=== PATIENT | male | born 1935 | race Caucasian/White ===

== ENCOUNTER 2017-11-06 19:16 | Emergency (ER) | payer MEDICAID, MEDICARE ==
[2017-11-06 19:16] VITALS: BMI 26.6
--- NOTE | 2017-11-06 19:54 | C.PDOC ---
History Of Present Illness 82 year old male with PMhc of chronic constipation, hx of prostate cancer, and chronic back issues accompanied by his daughter presents to the ED for evaluation of worsening constipation. FAmily reports his last bowel movement was last night and noted the stool was hard. As per daughter she disimpacted hardened stool from the rectum recently. Patient was recently admitted to [facility] [place] for constipation last month-already taking mag citrate without much improvement. Patient denies nausea, vomit, abdominal pain, CP, SOB. Time Seen by Provider: 11/06/17 19:29 Chief Complaint (Nursing): Abdominal Pain History Per: Patient, Family History/Exam Limitations: no limitations Onset/Duration Of Symptoms: Days Current Symptoms Are (Timing): Still Present Pain Scale Rating Of: 3 Location Of Pain/Discomfort: Diffuse Radiation Of Pain To:: None Quality Of Discomfort: "Pain" Associated Symptoms: Constipation Exacerbating Factors: None Alleviating Factors: None Last Bowel Movement: Yesterday Recent travel outside of the [place]: No Additional History Per: Patient, Family Past Medical History Reviewed: Historical Data, Nursing Documentation, Vital Signs Vital Signs: Last Vital Signs Temp 98 F 11/07/17 00:08 Pulse 87 11/07/17 00:08 Resp 16 11/07/17 00:08 BP 135/75 11/07/17 00:08 Pulse Ox 99 11/07/17 06:36 - Medical History PMH: Alzheimer's Disease Other PMH: prostate cancer/ chronic back pain Surgical History: Appendectomy - [facility] Procedures CATARAC PHACOEMULS/ASPIR (04/07/13) INSERT LENS AT CATAR EXT (04/07/13) Family History: States: Unknown Family Hx - Social History Hx Alcohol Use: No Hx Substance Use: No Review Of Systems Constitutional: Negative for: Fever, Chills Eyes: Negative for: Pain ENT: Negative for: Ear Pain Cardiovascular: Negative for: Chest Pain, Palpitations Respiratory: Negative for: Cough, Shortness of Breath Gastrointestinal: Positive for: Constipation, Rectal Pain. Negative for: Nausea , Vomiting, Abdominal Pain, Melena, Hematochezia, Hematemesis Genitourinary: Negative for: Dysuria, Hematuria Skin: Negative for: Rash Neurological: Negative for: Weakness, Numbness Physical Exam - Physical Exam Appears: Non-toxic, No Acute Distress Skin: Normal Color, Warm, Dry Head: Atraumatic, Normacephalic Nose: No Discharge, No Deformity Oral Mucosa: Moist Throat: Normal, No Erythema, No Exudate Neck: Normal ROM, Supple Chest: Symmetrical Cardiovascular: Rhythm Regular, No Murmur Respiratory: Normal Breath Sounds, No Rales, No Rhonchi, No Wheezing Gastrointestinal/Abdominal: Soft, No Tenderness, No Guarding, No Rebound, Other (RLQ 5 cm long vertical scar) Extremity: Normal ROM, No Pedal Edema, No Calf Tenderness, No Deformity, No Swelling Neurological/Psych: Oriented x3, Normal Speech, Normal Cognition Gait: Steady ED Course And Treatment O2 Sat by Pulse Oximetry: 99 (On RA) Pulse Ox Interpretation: Normal - Radiology CXR: Interpreted by Me, Viewed By Me CXR Interpretation: No: No Acute Disease, Infiltrates, Cardiomegaly, Pnemothorax - Other Rad Obstructive series X-Ray: Interpreted by Me, Viewed By Me Interpretation: Lots of stool noted Medical Decision Making Medical Decision Making: Plan: * Blood work * Valium 5 mg PO * UA Disimpacted some stool from the patients rectum, used lidocaine in the rectum. Disposition - Disposition Referrals: [facility] [place] [facility] [Outside] [facility] [Outside] [facility] [Outside] Disposition: HOME/ ROUTINE Additional Instructions: return if symptoms do not improve or worsen Prescriptions: Magnesium Citrate 100 mg PO DAILY 5 Days #5 tablet Instructions: Constipation (ED) Forms: [facility] (Telugu) - Scribe Statement The provider has reviewed the documentation as recorded by the Scribe Jae Villasenor All medical record entries made by the Scribe were at my direction and personally dictated by me. I have reviewed the chart and agree that the record accurately reflects my personal performance of the history, physical exam, medical decision making, and the department course for this patient. I have also personally directed, reviewed, and agree with the discharge instructions and disposition.
[2017-11-07 00:09] VITALS: BP 135/75; PULSE 87; RESP 16; TEMP 98
[2017-11-07 06:37] VITALS: O2SAT 99
--- NOTE | 2017-11-07 08:38 | RAD ---
PROCEDURE: CHEST RADIOGRAPH, 1 VIEW HISTORY: SOB COMPARISON: None available. FINDINGS: LUNGS: Clear. PLEURA: No pneumothorax or pleural fluid seen. CARDIOVASCULAR: Minimal left ventricular enlargement configuration. Minimal central pulmonary vascular congestion OSSEOUS STRUCTURES: Bilateral shoulder arthrosis VISUALIZED UPPER ABDOMEN: Extensive stool - hepatic flexure -with trace probably intraluminal colon gas OTHER FINDINGS: None. IMPRESSION: No consolidation, pleural effusion or pneumothorax Minimal left ventricular enlargement configuration. Minimal central pulmonary vascular congestion
--- NOTE | 2017-11-07 08:46 | RAD ---
HISTORY: abd pain COMPARISON: No prior. FINDINGS: BOWEL: Extensive left and right stool retention. No obstruction. No free air. BONES: Arthrosis -both hips -study oblique OTHER FINDINGS: None. IMPRESSION: Marked stool retention consistent with constipation. No mechanical obstruction or free air
--- NOTE | 2017-11-07 13:58 | CARD ---
APPROVED REPORT EKG Measurement Heart [id number] <Conclusion> Normal sinus rhythm Normal ECG
== END 2017-11-07 00:09 | disposition home or self-care (01) ==
LOC: C.ER 19:16
DX: K59.00 Constipation, unspecified (principal); G30.9 Alzheimer's disease, unspecified; F02.80 Dementia in other diseases classified elsewhere, unspecified severity, without behavioral disturbance, psychotic disturbance, mood disturbance, and anxiety

== ENCOUNTER 2017-11-12 17:08 | Inpatient (IN) | payer MEDICARE ==
[2017-11-12 17:08] VITALS: BMI 26.6
--- NOTE | 2017-11-12 19:41 | C.PDOC ---
History Of Present Illness 82M hx alzheimer dementia brought in by son for constipation and abdominal pain. he says he was here for same several days ago, had disimpaction at that time but has had no stool since then. no vomiting or fever. Time Seen by Provider: 11/12/17 19:30 Chief Complaint (Nursing): GI Problem Past Medical History Vital Signs: Last Vital Signs Temp 97.9 F 11/18/17 08:38 Pulse 73 11/18/17 08:38 Resp 20 11/18/17 08:38 BP 125/72 11/18/17 08:38 Pulse Ox 99 11/18/17 08:38 - Medical History PMH: Alzheimer's Disease Surgical History: Appendectomy - [facility] Procedures CATARAC PHACOEMULS/ASPIR (04/07/13) INSERT LENS AT CATAR EXT (04/07/13) Family History: States: Unknown Family Hx - Social History Hx Alcohol Use: No Hx Substance Use: No - Immunization History Hx Tetanus Toxoid Vaccination: No Hx Influenza Vaccination: No Hx Pneumococcal Vaccination: No Review Of Systems Review Of Systems: ROS cannot be obtained secondary to pt's inabilty to answer questions. Physical Exam - Physical Exam Appears: Well, Non-toxic, No Acute Distress Skin: Warm, Dry Head: Atraumatic Eye(s): bilateral: PERRL Oral Mucosa: Moist Cardiovascular: Rhythm Regular Respiratory: No Decreased Breath Sounds, No Accessory Muscle Use Gastrointestinal/Abdominal: Soft, No Distention, No Guarding Extremity: No Swelling Neurological/Psych: Other (no focal deficits) ED Course And Treatment - Laboratory Results Result Diagrams: 11/12/17 20:09 11/12/17 20:09 O2 Sat by Pulse Oximetry: 98 Disposition - Disposition Disposition: HOSPITALIZED Disposition Time: 21:54 Condition: STABLE - Clinical Impression Clinical Impression: Obstipation
[2017-11-12 20:14] LABS: BASO # 0.1 K/uL (0.0-0.2); BASO % 0.5 % (0.0-2.0); EOS % 0.3 % (0.0-4.0); HEMOGLOBIN 11.1 g/dL (12.0-18.0); LYMPH # 1.5 K/uL (1.0-4.3); LYMPH % 14.2 % (20.0-40.0); MEAN CELL VOLUME 85.3 fL (80.0-94.0); MEAN CORPUSCULAR HEMOGLOBIN 28.6 pg (27.0-31.0); MEAN CORPUSCULAR HGB CONC 33.6 g/dL (33.0-37.0); MEAN PLATELET VOLUME 7.4 fL (7.2-11.7); MONO # 1.3 K/uL (0.0-0.8); MONO % 12.1 % (0.0-10.0); NEUT # 7.9 K/uL (1.8-7.0); NEUT % 72.9 % (50.0-75.0); NRBC % 0.1 % (0.0-2.0); RBC 3.87 Mil/uL (4.40-5.90); WHITE BLOOD COUNT 10.8 K/uL (4.8-10.8)
[2017-11-12 20:35] LABS: ALBUMIN 3.6 g/dL (3.5-5.0); ALT/SGPT 27 U/L (21-72); AST/SGOT 27 U/L (17-59); BLOOD UREA NITROGEN 16 mg/dL (9-20); CALCIUM 9.3 mg/dl (8.6-10.4); GFR AFRICAN-AMERICAN > 60; GFR NON-AFRICAN AMERICAN > 60; LIPASE 44 U/L (23-300)
[2017-11-12 20:37] LABS: ALB/GLOB RATIO 0.6 (1.0-2.1)
--- NOTE | 2017-11-12 21:44 | CT ---
EXAM: CT Abdomen and Pelvis Without Intravenous Contrast EXAM DATE/TIME: 11/12/2017 7:38 PM CLINICAL HISTORY: 82 years old, male; Signs and symptoms; Constipation; Additional info: Pain constipation TECHNIQUE: Axial computed tomography images of the abdomen and pelvis without intravenous contrast. All CT scans at this facility use one or more dose reduction techniques, viz.: automated exposure control; ma/kV adjustment per patient size (including targeted exams where dose is matched to indication; i.e. head); or iterative reconstruction technique. Coronal and sagittal reformatted images were created and reviewed. COMPARISON: There are no prior studies for comparison. FINDINGS: Artifacts: Streak artifact degrades image quality. Motion artifact degrades image quality. Lower thorax: Heart size is normal. Lung bases are hyperinflated. There is minimal scarring at the lung bases ABDOMEN: Liver: unremarkable Gallbladder and bile ducts: unremarkable Pancreas: Pancreas is mildly atrophic. Spleen: unremarkable Adrenals: unremarkable Kidneys and ureters: unremarkable Stomach and bowel: Stomach is incompletely distended. Rotation is normal. Small bowel is mildly distended with fluid and air. Terminal ileum is unremarkable. Appendix is not visualized.There is no pericecal inflammation. There is a large amount of stool throughout the colon. There is a large fecal bolus in the rectum. There is mild rectal wall thickening. Appendix: See stomach and bowel PELVIS: Bladder: Bladder is almost completely empty. Reproductive: Seminal vesicles and prostate are unremarkable. ABDOMEN and PELVIS: Intraperitoneal space: There is no free air or free fluid. Bones/joints: Bony structures are osteopenic.There are degenerative changes in the osseus structures. Soft tissues: unremarkable Vasculature: There are vascular calcifications. Lymph nodes: There is no pathologic adenopathy. IMPRESSION: Constipation with fecal impaction, mild rectal wall thickening suggest stercoral colitios
[2017-11-12] MEDS ORDERED: POLYETHYLENE GLYCOL 3350 17 GM/Dose PACKET PO STA (22:09)
[2017-11-13] MEDS ORDERED: Dextrose 5%/0.45% NS 1,000 ML IV ONE (00:43)
[2017-11-13] MEDS ORDERED: Enoxaparin 40 mg Syringe ONE (00:44)
[2017-11-13] MEDS: Dextrose 5%/0.45% NS 1,000 ML IV SCH ×2 (01:30→17:00)
[2017-11-13] MEDS ORDERED: Influenza Vaccine 60 mcg/0.5 mL SYR (4YR UP) IM ONE (10:00)
[2017-11-13] MEDS ORDERED: NAMENDA PO SCH (10:00)
[2017-11-13] MEDS ORDERED: MAGNESIUM CITRATE 100 MG PO SCH (10:00)
[2017-11-13] MEDS ORDERED: Pneumococcal 23-Valent Vaccine IM ONE (10:00)
[2017-11-13] MEDS: Enoxaparin 40 mg Syringe SC SCH (10:35)
[2017-11-13] MEDS ORDERED: Lactated Ringer's 1,000 ML IV ONE (14:25)
[2017-11-13] MEDS ORDERED: Propofol 10 mg/ml Inj (20 ML) ONE (14:37)
[2017-11-13] MEDS ORDERED: Midazolam 2 MG/2 ML VIAL ONE (14:37)
[2017-11-13] MEDS ORDERED: Peg-Electrolyte Oral Soln 4L (Golytely) PO ONE (15:11)
[2017-11-13] MEDS ORDERED: HYDROmorphone 0.5 mg/0.5 ml ISec IVP PRN (15:22)
--- NOTE | 2017-11-13 17:00 | CP.PCM.HP ---
Past Patient History - Infectious Disease Hx of Infectious Diseases: None - Past Social History Smoking Status: Never Smoked - NEUROLOGICAL Hx Alzheimer's Disease: Yes - GASTROINTESTINAL Hx Constipation: Yes (with impaction) - GENITOURINARY/GYNECOLOGICAL Hx Prostate Problems: Yes - PSYCHIATRIC Hx Substance Use: No - SURGICAL HISTORY Hx Appendectomy: Yes - ANESTHESIA Hx Anesthesia: Yes Hx Anesthesia Reactions: No Hx Malignant Hyperthermia: No Meds Allergies/Adverse Reactions: Allergies Allergy/AdvReac Type Severity Reaction Status Date / Time No Known Allergies Allergy Verified 04/07/13 08:05 Results - Vital Signs Recent Vital Signs: Last Vital Signs Temp 97.6 F 11/13/17 15:13 Pulse 66 11/13/17 16:00 Resp 13 11/13/17 16:00 BP 120/58 L 11/13/17 16:00 Pulse Ox 100 11/13/17 16:00 - Labs Result Diagrams: 11/12/17 20:09 11/12/17 20:09 Labs: Laboratory Results - last 24 hr 11/12/17 11/12/17 20:09 20:09 WBC 10.8 RBC 3.87 L Hgb 11.1 L Hct 33.0 L MCV 85.3 MCH 28.6 MCHC 33.6 RDW 18.0 H Plt Count 503 H MPV 7.4 Neut % (Auto) 72.9 Lymph % (Auto) 14.2 L [place] % (Auto) 12.1 H Eos % (Auto) 0.3 Baso % (Auto) 0.5 Neut # 7.9 H Lymph # 1.5 [place] # 1.3 H Eos # 0.0 Baso # 0.1 Sodium 132 Potassium 4.3 Chloride 96 L Carbon Dioxide 28 Anion Gap 12 BUN 16 Creatinine 0.7 L Est GFR ( Amer) > 60 Est GFR (Non-Af Amer) > 60 Random Glucose 99 Calcium 9.3 Total Bilirubin 0.5 AST 27 ALT 27 Alkaline Phosphatase 159 H Total Protein 9.3 H Albumin 3.6 Globulin 5.7 H Albumin/Globulin Ratio 0.6 L Lipase 44
--- NOTE | 2017-11-13 17:15 | RAD ---
HISTORY: FOR NGT PLACEMENT COMPARISON: Chest x-ray performed 11/06/17 TECHNIQUE: Chest, one view. FINDINGS: Nasogastric tube extends expected location of the stomach. LUNGS: No focal consolidation. Please note that chest x-ray has limited sensitivity for the detection of pulmonary masses. PLEURA: No significant pleural effusion identified. No definite pneumothorax . CARDIOVASCULAR: Heart size appears within normal limits. Ectatic aorta. OSSEOUS STRUCTURES: No acute osseous abnormality identified. VISUALIZED UPPER ABDOMEN: Partially imaged severe constipation. OTHER FINDINGS: None. IMPRESSION: Nasogastric tube extends expected location of the stomach. Partially imaged severe constipation.
[2017-11-13 17:46] VITALS: RESP 20
--- NOTE | 2017-11-13 20:53 | OP ---
PROCEDURE DATE: PREOPERATIVE DIAGNOSIS: Fecal impaction. POSTOPERATIVE DIAGNOSIS: Fecal impaction. PROCEDURE PERFORMED: 1. Fecal disimpaction. 2. Repair of rectal blood vessel. SURGEON: Ignacoi Tsang MD. TYPE OF ANESTHESIA: General. ESTIMATED BLOOD LOSS: 40 mL. POSTOPERATIVE CONDITION: Stable. INDICATIONS FOR SURGERY: This is an 82-year-old male, who presented with obstipation, found to have a fecal impaction with a large bolus of stool in his rectum on CT scan. Taken to the OR for a fecal disimpaction under anesthesia. CLOSE FINDINGS: There was a large bolus of stool in the rectum. Disimpaction manually was performed. There was a fair amount of bleeding from him where the blood vessel from the stretching of the anus and this was repaired prior to conclusion of procedure. DESCRIPTION OF PROCEDURE: The patient was taken to the operating room, general anesthesia was administered. The rectal area was prepped and draped. Fecal disimpaction was carried out manually after the patient was placed in lithotomy position. A bleeding rectal blood vessel was repaired with Vicryl. The patient tolerated the procedure well. Returned to recovery room in stable condition. Ignacio Tsang MD
[2017-11-14] MEDS: Lactated Ringer's 1,000 ML IV SCH ×2 (04:50→13:02)
[2017-11-14] MEDS ORDERED: Influenza Vaccine 60 mcg/0.5 mL SYR (4YR UP) IM ONE (10:00)
[2017-11-14] MEDS ORDERED: Pneumococcal 23-Valent Vaccine IM ONE (10:00)
[2017-11-14] MEDS ORDERED: Magnesium Citrate Oral SOL (300 ml) PO ONE (12:30)
[2017-11-14] MEDS: Enoxaparin 40 mg Syringe SC SCH (12:59)
--- NOTE | 2017-11-14 20:33 | CP.PCM.PN ---
Subjective - Date & Time of Evaluation Date of Evaluation: 11/14/17 Time of Evaluation: 20:33 Objective - Vital Signs/Intake and Output Vital Signs (last 24 hours): Temp Pulse Resp BP Pulse Ox 98.3 F 76 20 118/68 100 11/14/17 16:00 11/14/17 16:00 11/14/17 16:00 11/14/17 16:00 11/14/17 16:00 Intake and Output: 11/14/17 11/15/17 18:59 06:59 Intake Total 400 Balance 400 - Medications Medications: Current Medications Enoxaparin Sodium (Lovenox) 40 mg SC DAILY [facility] Last Admin: 11/14/17 12:59 Dose: 40 mg Dextrose/Sodium Chloride (Dextrose 5%/0.45% Ns 1000 Ml) 1,000 mls @ 75 mls/hr IV .[id number] [facility] Last Admin: 11/13/17 17:00 Dose: 75 mls/hr Lactated Ringer's (Lactated Ringer's) 1,000 mls @ 150 mls/hr IV .[id number] [facility] Last Admin: 11/14/17 13:02 Dose: 150 mls/hr Memantine (Namenda) 5 mg PO DAILY [facility] - Labs Labs: 11/12/17 20:09 11/12/17 20:09
[2017-11-15] MEDS: Lactated Ringer's 1,000 ML IV SCH ×5 (00:50→19:30)
[2017-11-15] MEDS: Enoxaparin 40 mg Syringe SC SCH (09:54)
[2017-11-15] MEDS ORDERED: Promethazine 12.5 mg/10 ml Syrup PO PRN (12:55)
[2017-11-15] MEDS: BICALUTAMIDE 50 MG PO SCH (14:49)
--- NOTE | 2017-11-15 15:43 | CP.PCM.PN ---
Subjective - Date & Time of Evaluation Date of Evaluation: 11/15/17 Time of Evaluation: 15:43 Objective - Vital Signs/Intake and Output Vital Signs (last 24 hours): Temp Pulse Resp BP Pulse Ox 98.5 F 71 20 138/65 96 11/15/17 07:56 11/15/17 07:56 11/15/17 07:56 11/15/17 07:56 11/15/17 07:56 Intake and Output: 11/15/17 11/15/17 06:59 18:59 Intake Total 1450 Output Total 301 Balance 1149 - Medications Medications: Current Medications Enoxaparin Sodium (Lovenox) 40 mg SC DAILY [facility] Last Admin: 11/15/17 09:54 Dose: 40 mg Home Med (Patient's Own Medication) 1 tab PO DAILY [facility] Last Admin: 11/15/17 14:49 Dose: 1 tab Dextrose/Sodium Chloride (Dextrose 5%/0.45% Ns 1000 Ml) 1,000 mls @ 75 mls/hr IV .[id number] [facility] Last Admin: 11/13/17 17:00 Dose: 75 mls/hr Lactated Ringer's (Lactated Ringer's) 1,000 mls @ 150 mls/hr IV .[id number] [facility] Last Admin: 11/15/17 14:51 Dose: Not Given Memantine (Namenda) 5 mg PO DAILY [facility] Last Admin: 11/15/17 09:54 Dose: 5 mg Multivitamins (Hexavitamin) 1 tab PO DAILY [facility] Promethazine HCl (Phenergan Syrup) 12.5 mg PO Q6 PRN PRN Reason: Cough - Labs Labs: 11/12/17 20:09 11/12/17 20:09
[2017-11-16] MEDS: Lactated Ringer's 1,000 ML IV SCH ×5 (03:30→20:56)
[2017-11-16] MEDS: Multiple Vitamins Tab PO SCH (10:04)
[2017-11-16] MEDS: Enoxaparin 40 mg Syringe SC SCH (10:04)
[2017-11-16] MEDS: BICALUTAMIDE 50 MG PO SCH (10:05)
--- NOTE | 2017-11-16 17:13 | CP.PCM.PN ---
Subjective - Date & Time of Evaluation Date of Evaluation: 11/16/17 Time of Evaluation: 17:13 Objective - Vital Signs/Intake and Output Vital Signs (last 24 hours): Temp Pulse Resp BP Pulse Ox 97.8 F 73 20 156/84 H 98 11/16/17 16:00 11/16/17 16:00 11/16/17 16:00 11/16/17 16:00 11/16/17 16:00 Intake and Output: 11/16/17 11/16/17 06:59 18:59 Intake Total 2400 1260 Output Total 0 Balance 2400 1260 - Medications Medications: Current Medications Enoxaparin Sodium (Lovenox) 40 mg SC DAILY [facility] Last Admin: 11/16/17 10:04 Dose: 40 mg Home Med (Patient's Own Medication) 1 tab PO DAILY [facility] Last Admin: 11/16/17 10:05 Dose: 1 tab Memantine (Namenda) 5 mg PO DAILY [facility] Last Admin: 11/16/17 10:05 Dose: 5 mg Multivitamins (Hexavitamin) 1 tab PO DAILY [facility] Last Admin: 11/16/17 10:04 Dose: 1 tab Promethazine HCl (Phenergan Syrup) 12.5 mg PO Q6 PRN PRN Reason: Cough - Labs Labs: 11/12/17 20:09 11/12/17 20:09
[2017-11-17] MEDS: Lactated Ringer's 1,000 ML IV SCH ×2 (03:40→11:05)
[2017-11-17] MEDS: Multiple Vitamins Tab PO SCH (10:42)
[2017-11-17] MEDS: BICALUTAMIDE 50 MG PO SCH (10:42)
[2017-11-17] MEDS: Enoxaparin 40 mg Syringe SC SCH (10:45)
--- NOTE | 2017-11-17 12:31 | CP.PCM.PN ---
Subjective - Date & Time of Evaluation Date of Evaluation: 11/17/17 Time of Evaluation: 12:31 Objective - Vital Signs/Intake and Output Vital Signs (last 24 hours): Temp Pulse Resp BP Pulse Ox 98 F 73 20 128/75 96 11/17/17 08:00 11/17/17 08:00 11/17/17 08:00 11/17/17 08:00 11/17/17 08:00 Intake and Output: 11/17/17 11/17/17 06:59 18:59 Intake Total 2520 Balance 2520 - Medications Medications: Current Medications Enoxaparin Sodium (Lovenox) 40 mg SC DAILY [facility] Last Admin: 11/17/17 10:45 Dose: 40 mg Home Med (Patient's Own Medication) 1 tab PO DAILY [facility] Last Admin: 11/17/17 10:42 Dose: 1 tab Memantine (Namenda) 5 mg PO DAILY [facility] Last Admin: 11/17/17 10:42 Dose: 5 mg Multivitamins (Hexavitamin) 1 tab PO DAILY [facility] Last Admin: 11/17/17 10:42 Dose: 1 tab Promethazine HCl (Phenergan Syrup) 12.5 mg PO Q6 PRN PRN Reason: Cough - Labs Labs: 11/12/17 20:09 11/12/17 20:09
[2017-11-18] MEDS: Multiple Vitamins Tab PO SCH (10:33)
[2017-11-18] MEDS: Enoxaparin 40 mg Syringe SC SCH (10:33)
[2017-11-18] MEDS: BICALUTAMIDE 50 MG PO SCH (10:34)
--- NOTE | 2017-11-18 13:50 | CP.PCM.PN ---
Subjective - Date & Time of Evaluation Date of Evaluation: 11/18/17 Time of Evaluation: 13:50 Objective - Vital Signs/Intake and Output Vital Signs (last 24 hours): Temp Pulse Resp BP Pulse Ox 97.9 F 73 20 125/72 99 11/18/17 08:38 11/18/17 08:38 11/18/17 08:38 11/18/17 08:38 11/18/17 08:38 Intake and Output: 11/18/17 11/18/17 06:59 18:59 Intake Total 240 Balance 240 - Medications Medications: Current Medications Enoxaparin Sodium (Lovenox) 40 mg SC DAILY [facility] Last Admin: 11/18/17 10:33 Dose: 40 mg Home Med (Patient's Own Medication) 1 tab PO DAILY [facility] Last Admin: 11/18/17 10:34 Dose: 1 tab Lactulose (Enulose) 30 gm PO Q12H [facility] Last Admin: 11/18/17 05:21 Dose: 30 gm Memantine (Namenda) 5 mg PO DAILY [facility] Last Admin: 11/18/17 10:34 Dose: 5 mg Multivitamins (Hexavitamin) 1 tab PO DAILY [facility] Last Admin: 11/18/17 10:33 Dose: 1 tab Promethazine HCl (Phenergan Syrup) 12.5 mg PO Q6 PRN PRN Reason: Cough - Labs Labs: 11/12/17 20:09 11/12/17 20:09
[2017-11-18 14:01] VITALS: O2SAT 98
[2017-11-18 15:58] VITALS: BP 128/70; PULSE 72; TEMP 98.1
== END 2017-11-18 17:15 | disposition home or self-care (01) | DRG 389 ==
LOC: C.ER 17:08 → C.9E 21:53 → C.3T 23:12 → OBSVTOIN 11-14 15:14 → C.3T 11-14 17:56
PROVIDERS: ADMIT Internal Medicine Critical Care Medicine; ATTEND Internal Medicine Critical Care Medicine
PROC: 0DCP7ZZ Extirpation of Matter from Rectum, Via Natural or Artificial Opening (ICD-10-PCS; principal; 2017-11-13 12:00)
DX: K56.41 Fecal impaction (principal); K62.5 Hemorrhage of anus and rectum; G30.9 Alzheimer's disease, unspecified; F02.80 Dementia in other diseases classified elsewhere, unspecified severity, without behavioral disturbance, psychotic disturbance, mood disturbance, and anxiety; K59.00 Constipation, unspecified; Z90.49 Acquired absence of other specified parts of digestive tract

== ENCOUNTER 2018-01-29 15:15 | Inpatient (IN) | payer MEDICARE ==
[2018-01-29 15:16] VITALS: BMI 26.6
[2018-01-29] MEDS ORDERED: Sodium Chloride 0.9% 500 ML IV ONE ×3 (15:40→17:45)
--- NOTE | 2018-01-29 15:53 | C.PDOC ---
History Of Present Illness 82 year old male sent to the ED from shelter for evaluation of syncope. As per EMS and shelter, patient was witnessed by staff to have syncopized for approximately 10 seconds while laying in his bed. Patients history is limited secondary due to PMHx of Alzheimers disease/clinical condition. Time Seen by Provider: 01/29/18 15:21 Chief Complaint (Nursing): Syncope History Per: Patient History/Exam Limitations: clinical condition Onset/Duration Of Symptoms: Unknown Number Of Syncopal Episodes: 1 Activity At Onset Of Symptoms: Lying Fall Associated With With Symptoms: No Additional History Per: EMS, Long-Term Past Medical History Reviewed: Historical Data, Nursing Documentation, Vital Signs Vital Signs: Last Vital Signs Temp 98.2 F 02/02/18 04:10 Pulse 85 02/02/18 04:10 Resp 20 02/02/18 04:10 BP 131/68 02/02/18 04:10 Pulse Ox 98 02/02/18 04:10 - Medical History PMH: Alzheimer's Disease Surgical History: Appendectomy - [facility] Procedures CATARAC PHACOEMULS/ASPIR (04/07/13) EXTIRPATION OF MATTER FROM RECTUM, VIA OPENING (11/14/17) INSERT LENS AT CATAR EXT (04/07/13) Family History: States: No Known Family Hx - Social History Hx Tobacco Use: No Hx Alcohol Use: No Hx Substance Use: No - Immunization History Hx Tetanus Toxoid Vaccination: No Hx Influenza Vaccination: No Hx Pneumococcal Vaccination: No Review Of Systems Review Of Systems: ROS cannot be obtained secondary to pt's inabilty to answer questions. Physical Exam - Physical Exam Appears: Non-toxic, No Acute Distress, Chronically Ill, Other (cachectic) Skin: Normal Color, Warm, Dry Head: Normacephalic Eye(s): bilateral: Normal Inspection Oral Mucosa: Dry Lips: Normal Appearing, Other (Dried food around mouth) Neck: Supple Cardiovascular: Rhythm Regular Respiratory: Normal Breath Sounds, No Rales, No Rhonchi, No Wheezing Gastrointestinal/Abdominal: Bowel Sounds, Soft, Tenderness (diffuse mild TTP), No Guarding, No Rebound, Other (Inferior to right side of umbilicus: well healed surgical scar) Extremity: Bilateral: Atraumatic, Normal Color And Temperature, Normal ROM Neurological/Psych: Other (Non-verbal) ED Course And Treatment - Laboratory Results Result Diagrams: 01/31/18 06:22 01/31/18 06:22 ECG: Interpreted By Me, Viewed By Me (NSR 95 bpm, normal axis, no acute ST/T wave changes ) ECG Interpretation: Normal O2 Sat by Pulse Oximetry: 96 (RA) Pulse Ox Interpretation: Normal - Other Rad cxr X-Ray: Viewed By Me, Read By Radiologist Interpretation: Accession No. : [id number]. Patient Name / ID : RONDA HELM / [id number]. Exam Date : 01/29/2018 15:59:01 ( Approved ). Study Comment : Sex / Age : M / 82Y. Creator : Thuy Orozco MD. Dictator : Thuy Orozco MD. Gaming Surveillance Observer : Multicut Line Operator : Thuy Orozco MD. Approver2 : Report Date : 01/29/2018 16:18:39. My Comment : . PROCEDURE: CHEST RADIOGRAPH, 1 VIEW. HISTORY: Syncope. COMPARISON: 11/06/2017. FINDINGS: LUNGS: The lungs are well inflated and clear. There is a stable calcified granuloma in the left lower lobe. PLEURA: No pneumothorax or pleural fluid seen. CARDIOVASCULAR: The heart is normal in size. OSSEOUS STRUCTURES: Within normal limits for the patient's age. VISUALIZED UPPER ABDOMEN: Normal. OTHER FINDINGS: None. IMPRESSION: No active pulmonary disease. - CT Scan/US CT HEAD Other Rad Studies (CT/US): Read By Radiologist, Radiology Report Reviewed CT/US Interpretation: Accession No. : [id number]. Patient Name / ID : RONDA HELM / [id number]. Exam Date : 01/29/2018 16:18:30 ( Approved ). Study Comment : Sex / Age : M / 82Y. Creator : Coleen Walsh. Dictator : Garett Agee MD. Gaming Surveillance Observer : Multicut Line Operator : Garett Agee MD. Approver2 : Report Date : 01/29/2018 16:28:33. My Comment : . PROCEDURE: CT HEAD WITHOUT CONTRAST. HISTORY: syncope. COMPARISON: None available. TECHNIQUE: Axial computed tomography images were obtained through the head/ brain without intravenous contrast. Radiation dose: Total exam DLP = 1092.55 mGy-cm. This CT exam was performed using one or more of the following dose reduction techniques: Automated exposure control, adjustment of the mA and/or kV according to patient size, and/or use of iterative reconstruction technique. FINDINGS: HEMORRHAGE: No intracranial hemorrhage. BRAIN: Good corticomedullary differentiation is seen. Subtle volume loss of the anterior pole right temporal lobe and expansion of the right temporal horn ex vacuo would indicate small chronic lobar infarction here. Diffuse expansion of the ventriculosulcal and cisternal spaces is appreciated with white matter lucency compatible with diffuse cerebral atrophy and chronic microangiopathy. No suspicious extra-axial fluid collection is identified and the midline brain anatomy appears grossly nonfocal as imaged. There is no mass effect throughout. VENTRICLES: Unremarkable. No hydrocephalus. CALVARIUM: Unremarkable. PARANASAL SINUSES: Unremarkable as visualized. No significant inflammatory changes. MASTOID AIR CELLS: Unremarkable as visualized. No inflammatory changes. OTHER FINDINGS: None. IMPRESSION: 1. No definite acute intracranial findings by standard CT criteria. Follow-up CT or MRI are available as clinically warranted. 2. 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 Age-related neuro degenerative changes are appreciated as well. Progress Note: Blood work, UA, EKG, CXR, CT head ordered and reviewed. Patient given IV NS bolus. 6:10pm - Patient's daughter now in ED, states he has history of prostate CA x approx 5 years, was on oral med. Has been in NH for approx 2 months, has been eating well but despite this has lost a large amount of weight. Will order CT scan chest/abd/pelvis to eval for worsening/ metastatic CA. - Physician Consult Information Physician Contacted: Tyler Diaz Outcome Of Conversation: Discussed patient with PMD, agrees with with admission for syncope, cachexia, alzheimer's disease, leukocytosis, failure to thrive. Disposition - Disposition Disposition: HOSPITALIZED Disposition Time: 18:08 Condition: STABLE - Clinical Impression Clinical Impression: Cachexia, Alzheimer disease, Syncope, Failure to thrive - Scribe Statement The provider has reviewed the documentation as recorded by the Scribe (Hannah Lynne) Provider Attestation: All medical record entries made by the Scribe were at my direction and personally dictated by me. I have reviewed the chart and agree that the record accurately reflects my personal performance of the history, physical exam, medical decision making, and the department course for this patient. I have also personally directed, reviewed, and agree with the discharge instructions and disposition. Decision To Admit - Pt Status Changed To: Hospital Disposition Of: Inpatient - Admit Certification Admit to Inpatient:: After my assessment, the patient will require hospitalization for at least two midnights. This is because of the severity of symptoms shown, intensity of services needed, and/or the medical risk in this patient being treated as an outpatient. - InPatient: Physician Admission Certification: I certify that this patient requires 2 or more midnights of care for the following reason:: see notes - . Bed Request Type: Telemetry Admitting Physician: Tyler Diaz Patient Diagnosis: Syncope, Cachexia, Alzheimer disease, Leukocytosis, Failure to thrive
--- NOTE | 2018-01-29 16:20 | RAD ---
PROCEDURE: CHEST RADIOGRAPH, 1 VIEW HISTORY: Syncope COMPARISON: 11/06/2017. FINDINGS: LUNGS: The lungs are well inflated and clear. There is a stable calcified granuloma in the left lower lobe. PLEURA: No pneumothorax or pleural fluid seen. CARDIOVASCULAR: The heart is normal in size. OSSEOUS STRUCTURES: Within normal limits for the patient's age. VISUALIZED UPPER ABDOMEN: Normal. OTHER FINDINGS: None. IMPRESSION: No active pulmonary disease.
--- NOTE | 2018-01-29 16:54 | CT ---
PROCEDURE: CT HEAD WITHOUT CONTRAST. HISTORY: syncope COMPARISON: None available. TECHNIQUE: Axial computed tomography images were obtained through the head/brain without intravenous contrast. Radiation dose: Total exam DLP = 1092.55 mGy-cm. This CT exam was performed using one or more of the following dose reduction techniques: Automated exposure control, adjustment of the mA and/or kV according to patient size, and/or use of iterative reconstruction technique. FINDINGS: HEMORRHAGE: No intracranial hemorrhage. BRAIN: Good corticomedullary differentiation is seen. Subtle volume loss of the anterior pole right temporal lobe and expansion of the right temporal horn ex vacuo would indicate small chronic lobar infarction here. Diffuse expansion of the ventriculosulcal and cisternal spaces is appreciated with white matter lucency compatible with diffuse cerebral atrophy and chronic microangiopathy. No suspicious extra-axial fluid collection is identified and the midline brain anatomy appears grossly nonfocal as imaged. There is no mass effect throughout. VENTRICLES: Unremarkable. No hydrocephalus. CALVARIUM: Unremarkable. PARANASAL SINUSES: Unremarkable as visualized. No significant inflammatory changes. MASTOID AIR CELLS: Unremarkable as visualized. No inflammatory changes. OTHER FINDINGS: None. IMPRESSION: 1. No definite acute intracranial findings by standard CT criteria. Follow-up CT or MRI are available as clinically warranted. 2. 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 Age-related neuro degenerative changes are appreciated as well.
[2018-01-29 17:08] LABS: BASO # 0.1 K/uL (0.0-0.2); BASO % 0.3 % (0.0-2.0); HEMOGLOBIN 9.8 g/dL (12.0-18.0); LYMPH # 0.6 K/uL (1.0-4.3); LYMPH % 3.7 % (20.0-40.0); MEAN CELL VOLUME 85.8 fL (80.0-94.0); MEAN CORPUSCULAR HEMOGLOBIN 27.6 pg (27.0-31.0); MEAN CORPUSCULAR HGB CONC 32.1 g/dL (33.0-37.0); MEAN PLATELET VOLUME 6.6 fL (7.2-11.7); MONO # 1.5 K/uL (0.0-0.8); NEUT # 14.7 K/uL (1.8-7.0); NRBC % 0.1 % (0.0-2.0); PLATELET COUNT 552 K/uL (130-400); RBC 3.55 Mil/uL (4.40-5.90); RED CELL DISTRIBUTION WIDTH 16.4 % (11.5-14.5); WHITE BLOOD COUNT 16.9 K/uL (4.8-10.8)
[2018-01-29 17:16] LABS: INR 1.4; PROTHROMBIN TIME 16.2 SECONDS (9.7-12.2)
[2018-01-29 17:18] LABS: ALB/GLOB RATIO 0.5 (1.0-2.1); ALBUMIN 2.9 g/dL (3.5-5.0); ALT/SGPT 31 U/L (21-72); AST/SGOT 27 U/L (17-59); BLOOD UREA NITROGEN 11 mg/dL (9-20); CALCIUM 9.1 mg/dl (8.6-10.4); GFR AFRICAN-AMERICAN > 60; GFR NON-AFRICAN AMERICAN > 60
[2018-01-29 17:29] LABS: CK-MB 0.29 ng/mL (0.0-3.38)
[2018-01-29 17:41] LABS: URINE BILIRUBIN NEGATIVE (NEGATIVE); URINE BLOOD NEGATIVE (NEGATIVE); URINE CLARITY Hazy (Clear); URINE COLOR Yellow (YELLOW); URINE GLUCOSE (UA) NORMAL (Normal); URINE LEUKOCYTE ESTERASE NEG Leu/uL (Negative); URINE PROTEIN NEGATIVE (NEGATIVE)
[2018-01-29 17:44] LABS: ANISOCYTOSIS SLIGHT; BANDS 1 % (0-2); LYMPHOCYTE 5 % (20-40); MONOCYTE 10 % (0-10); NEUTROPHIL 84 % (50-75); PLATELET ESTIMATE SLIGHTLY INCREASED (NORMAL); POIKILOCYTOSIS SLIGHT; TOTAL CELLS COUNTED 100
--- NOTE | 2018-01-29 19:02 | CP.PCM.HP ---
Past Patient History - Infectious Disease Hx of Infectious Diseases: None - Past Social History Smoking Status: Never Smoked - NEUROLOGICAL Hx Alzheimer's Disease: Yes - GASTROINTESTINAL Hx Constipation: Yes (with impaction) - GENITOURINARY/GYNECOLOGICAL Hx Prostate Problems: Yes - PSYCHIATRIC Hx Substance Use: No - SURGICAL HISTORY Hx Appendectomy: Yes - ANESTHESIA Hx Anesthesia: Yes Hx Anesthesia Reactions: No Hx Malignant Hyperthermia: No Meds Allergies/Adverse Reactions: Allergies Allergy/AdvReac Type Severity Reaction Status Date / Time No Known Allergies Allergy Verified 01/29/18 15:22 Physical Exam - Constitutional Appears: Well - Head Exam Head Exam: ATRAUMATIC, NORMAL INSPECTION, NORMOCEPHALIC - Eye Exam Eye Exam: EOMI, Normal appearance, PERRL Pupil Exam: NORMAL ACCOMODATION, PERRL - ENT Exam ENT Exam: Mucous Membranes Moist, Normal Exam - Neck Exam Neck exam: Positive for: Normal Inspection - Respiratory Exam Respiratory Exam: Decreased Breath Sounds - Cardiovascular Exam Cardiovascular Exam: REGULAR RHYTHM, +S1, +S2 - GI/Abdominal Exam GI & Abdominal Exam: Diminished Bowel Sounds, Soft - Rectal Exam Rectal Exam: Deferred Results - Vital Signs Recent Vital Signs: Last Vital Signs Temp 98.6 F 01/29/18 18:58 Pulse 89 01/29/18 18:43 Resp 15 01/29/18 18:43 BP 122/65 01/29/18 18:43 Pulse Ox 97 01/29/18 18:43 - Labs Result Diagrams: 01/29/18 17:03 01/29/18 17:03 Labs: Laboratory Results - last 24 hr 01/29/18 01/29/18 01/29/18 17:03 17:03 17:03 WBC 16.9 H D RBC 3.55 L Hgb 9.8 L Hct 30.5 L MCV 85.8 MCH 27.6 MCHC 32.1 L RDW 16.4 H Plt Count 552 H MPV 6.6 L Neut % (Auto) 87.0 H Lymph % (Auto) 3.7 L [place] % (Auto) 9.0 Eos % (Auto) 0.0 Baso % (Auto) 0.3 Neut # (Auto) 14.7 H Lymph # (Auto) 0.6 L [place] # (Auto) 1.5 H Eos # (Auto) 0.0 Baso # (Auto) 0.1 Neutrophils % (Manual) 84 H Band Neutrophils % 1 Lymphocytes % (Manual) 5 L Monocytes % (Manual) 10 Platelet Estimate Slightly increased H Poikilocytosis (manual Slight Anisocytosis (manual) Slight PT 16.2 H INR 1.4 APTT 30 Sodium 135 Potassium 4.4 Chloride 95 L Carbon Dioxide 29 Anion Gap 15 BUN 11 Creatinine 0.6 L Est GFR ( Amer) > 60 Est GFR (Non-Af Amer) > 60 Random Glucose 153 H Calcium 9.1 Total Bilirubin 0.3 AST 27 ALT 31 Alkaline Phosphatase 253 H D Total Creatine Kinase < 20 L CK-MB (Mass) 0.29 Troponin I < 0.0120 Total Protein 8.6 H Albumin 2.9 L Globulin 5.7 H Albumin/Globulin Ratio 0.5 L Urine Color Urine Clarity Urine pH Ur Specific [place] Urine Protein Urine Glucose (UA) Urine Ketones Urine Blood Urine Nitrate Urine Bilirubin Urine Urobilinogen Ur Leukocyte Esterase Urine WBC (Auto) Urine RBC (Auto) Influenza Typ A,B (EIA) 01/29/18 01/29/18 17:21 18:12 WBC RBC Hgb Hct MCV MCH MCHC RDW Plt Count MPV Neut % (Auto) Lymph % (Auto) [place] % (Auto) Eos % (Auto) Baso % (Auto) Neut # (Auto) Lymph # (Auto) [place] # (Auto) Eos # (Auto) Baso # (Auto) Neutrophils % (Manual) Band Neutrophils % Lymphocytes % (Manual) Monocytes % (Manual) Platelet Estimate Poikilocytosis (manual Anisocytosis (manual) PT INR APTT Sodium Potassium Chloride Carbon Dioxide Anion Gap BUN Creatinine Est GFR ( Amer) Est GFR (Non-Af Amer) Random Glucose Calcium Total Bilirubin AST ALT Alkaline Phosphatase Total Creatine Kinase CK-MB (Mass) Troponin I Total Protein Albumin Globulin Albumin/Globulin Ratio Urine Color Yellow Urine Clarity Hazy Urine pH 7.0 Ur Specific [place] 1.014 Urine Protein Negative Urine Glucose (UA) Normal Urine Ketones Negative Urine Blood Negative Urine Nitrate Negative Urine Bilirubin Negative Urine Urobilinogen 4.0 Ur Leukocyte Esterase Neg Urine WBC (Auto) 1 Urine RBC (Auto) 1 Influenza Typ A,B (EIA) Negative for flu a/b
[2018-01-29] MEDS ORDERED: Iohexol 300 100 ML IJ ONE (19:10)
--- NOTE | 2018-01-29 21:31 | CT ---
EXAM: CT Abdomen and Pelvis With Intravenous Contrast CLINICAL HISTORY: 82 years old, male; Pain; Abdominal pain; Generalized; Chest pain; Type not specified; Additional info: Cachexia, h/o prostate ca TECHNIQUE: Axial computed tomography images of the abdomen and pelvis with intravenous contrast. All CT scans at this facility use one or more dose reduction techniques, viz.: automated exposure control; ma/kV adjustment per patient size (including targeted exams where dose is matched to indication; i.e. head); or iterative reconstruction technique. Coronal and sagittal reformatted images were created and reviewed. CONTRAST: 100 mL of omnipaque 300 administered intravenously. COMPARISON: No relevant prior studies available. FINDINGS: Lower thorax: No acute findings. ABDOMEN: Liver: Unremarkable. No mass. Gallbladder and bile ducts: Unremarkable. No calcified stones. No ductal dilation. Pancreas: Unremarkable. No mass. No ductal dilation. Spleen: Unremarkable. No splenomegaly. Adrenals: Unremarkable. No mass. Kidneys and ureters: Unremarkable. No solid mass. No hydronephrosis. Stomach and bowel: There is a very large amount of stool seen throughout the colon. A very large amount of stool is noted in the rectal vault. . . No mucosal thickening. Appendix: No findings to suggest acute appendicitis. PELVIS: Bladder: Unremarkable. No mass. Reproductive: The prostate measures 3.8 x 4.6 by 5 cm. There is mild stranding of the perirectal fat.Calcification is noted of the corpora cavernosa bilaterally. Calcification is noted of corporum spongiosum ABDOMEN and PELVIS: Intraperitoneal space: Unremarkable. No free air. No significant fluid collection. Bones/joints: There is permeative destruction noted of the L2 vertebral body involving the vertebral body, pedicle and the right transverse process. Soft tissues: See above. Vasculature: Unremarkable. No abdominal aortic aneurysm. Lymph nodes: Unremarkable. No enlarged lymph nodes. IMPRESSION: 1. Lytic vertebral lesion noted at L2. Appearance suggests metastatic disease although somewhat atypical for prostate cancer which is usually associated with osteoblastic metastatic disease 2. Very large amount of stool seen throughout the colon And rectum. As on the previous CT, the appearance suggests fecal impaction with stercoral proctitis. EXAM: CT Chest With Intravenous Contrast EXAM DATE/TIME: Exam ordered 01/29/2018 6:17 PM CLINICAL HISTORY: 82 years old, male; Pain; Abdominal pain; Generalized; Chest pain; Type not specified; Additional info: Cachexia, h/o prostate ca TECHNIQUE: Axial computed tomography images of the chest with intravenous contrast. All CT scans at this facility use one or more dose reduction techniques, viz.: automated exposure control; ma/kV adjustment per patient size (including targeted exams where dose is matched to indication; i.e. head); or iterative reconstruction technique. Coronal and sagittal reformatted images were created and reviewed. CONTRAST: 100 mL of omnipaque 300 administered intravenously. COMPARISON: CT - ABD PELVIS W/O PO OR IV CONT 2017-11-12 21:03 FINDINGS: Lungs: Very mild centrilobular type emphysema is suggested in the upper lung terry.. There is a calcified granuloma seen in the lingula. A granuloma is seen in the right lower lobe. A thin reticular pleural based density in the left lower lobe represents scar. Pleural space: Unremarkable. No pneumothorax. No significant effusion. Heart: Unremarkable. No cardiomegaly. No significant pericardial effusion. Bones/joints: Unremarkable. No acute fracture. No dislocation. Soft tissues: Unremarkable. Vasculature: Unremarkable. No thoracic aortic aneurysm. Lymph nodes: There are enlarged mediastinal lymph nodes. There is a prevascular margareth mass measuring 3.7 x 1.9 By 2.8 cm. An anterior mediastinal node measures 1.3 x 1 by 1.7 cm. There are bilateral posterior triangle lymph nodes noted at the level of the thyroid cartilage. A left posterior triangle node measures 2.8 x 1.5 by 3.4 cm. IMPRESSION: 1. Evidence of previous granulomatous disease. 2. Adenopathy noted within the mediastinum and the left side of the neck. 3. Mild centrilobular type emphysema.
[2018-01-30 02:58] LABS: CK-MB 0.26 ng/mL (0.0-3.38)
[2018-01-30 07:20] LABS: BASO % 0.3 % (0.0-2.0); EOS % 0.1 % (0.0-4.0); LYMPH # 1.1 K/uL (1.0-4.3); LYMPH % 7.5 % (20.0-40.0); MEAN CELL VOLUME 85.7 fL (80.0-94.0); MEAN CORPUSCULAR HEMOGLOBIN 27.7 pg (27.0-31.0); MEAN CORPUSCULAR HGB CONC 32.3 g/dL (33.0-37.0); MEAN PLATELET VOLUME 6.9 fL (7.2-11.7); MONO # 1.8 K/uL (0.0-0.8); MONO % 12.5 % (0.0-10.0); NEUT # 11.4 K/uL (1.8-7.0); NEUT % 79.6 % (50.0-75.0); PLATELET COUNT 557 K/uL (130-400); RBC 3.26 Mil/uL (4.40-5.90); RED CELL DISTRIBUTION WIDTH 16.3 % (11.5-14.5); WHITE BLOOD COUNT 14.4 K/uL (4.8-10.8)
[2018-01-30 08:33] LABS: BANDS 1 % (0-2); LYMPHOCYTE 7 % (20-40); MONOCYTE 12 % (0-10); NEUTROPHIL 80 % (50-75); PLATELET ESTIMATE INCREASED (NORMAL); TOTAL CELLS COUNTED 100
[2018-01-30 08:34] LABS: ANISOCYTOSIS SLIGHT; HYPOCHROMIC SLIGHT; POIKILOCYTOSIS SLIGHT; TARGET CELLS SLIGHT
[2018-01-30] MEDS ORDERED: Home Med 1 UNIT (Bicalutamide [Casodex] 50 MG) PO SCH (10:00)
[2018-01-30] MEDS: Enoxaparin 40 mg Syringe SC SCH (10:00)
[2018-01-30] MEDS ORDERED: LUBIPROSTONE PO SCH (10:00)
[2018-01-30] MEDS ORDERED: MAGNESIUM CITRATE 100 MG PO SCH (10:00)
[2018-01-30] MEDS: Multiple Vitamins Tab PO SCH (10:20)
--- NOTE | 2018-01-30 10:50 | CP.PCM.PN ---
Subjective - Date & Time of Evaluation Date of Evaluation: 01/30/18 Time of Evaluation: 10:20 - Subjective Subjective: clinically same Objective - Vital Signs/Intake and Output Vital Signs (last 24 hours): Temp Pulse Resp BP Pulse Ox 98.0 F 60 18 126/65 97 01/30/18 07:15 01/30/18 07:15 01/30/18 07:15 01/30/18 07:15 01/30/18 07:15 Intake and Output: 01/30/18 01/30/18 06:59 18:59 Intake Total 0 Output Total 300 Balance -300 - Medications Medications: Current Medications Enoxaparin Sodium (Lovenox) 40 mg SC DAILY [facility] Last Admin: 01/30/18 10:00 Dose: 40 mg Home Med (Bicalutamide [Casodex]) 50 mg PO DAILY [facility] Home Med (Docusate Sodium [Pedia-Lax Stool Softener]) 10 ml PO TID [facility] Home Med (Lubiprostone [Amitiza]) 16 mcg PO DAILY [facility] Home Med (Magnesium Citrate [Magnesium Citrate]) 100 mg PO DAILY [facility] Lactulose (Enulose) 10 gm PO Q6 [facility] Last Admin: 01/30/18 06:36 Dose: Not Given Memantine (Namenda) 10 mg PO DAILY [facility] Last Admin: 01/30/18 10:20 Dose: 10 mg Multivitamins (Hexavitamin) 1 tab PO DAILY [facility] Last Admin: 01/30/18 10:20 Dose: 1 tab Pantoprazole Sodium (Protonix Inj) 40 mg IVP DAILY [facility] Last Admin: 01/30/18 10:00 Dose: 40 mg Sennosides (Senokot Tab) 8.6 mg PO QPM [facility] - Labs Labs: 01/30/18 07:07 01/29/18 17:03 PT 16.2 SECONDS (9.7-12.2) H 01/29/18 17:03 INR 1.4 01/29/18 17:03 APTT 30 SECONDS (21-34) 01/29/18 17:03 - Constitutional Appears: Well - Head Exam Head Exam: ATRAUMATIC, NORMAL INSPECTION, NORMOCEPHALIC - Eye Exam Eye Exam: EOMI, Normal appearance, PERRL Pupil Exam: NORMAL ACCOMODATION, PERRL - ENT Exam ENT Exam: Mucous Membranes Moist, Normal Exam - Neck Exam Neck Exam: Full ROM, Normal Inspection. absent: Lymphadenopathy - Respiratory Exam Respiratory Exam: Decreased Breath Sounds - Cardiovascular Exam Cardiovascular Exam: REGULAR RHYTHM, +S1, +S2 - GI/Abdominal Exam GI & Abdominal Exam: Soft, Diminished Bowel Sounds - Rectal Exam Rectal Exam: Deferred
[2018-01-30 11:21] LABS: CK-MB 0.26 ng/mL (0.0-3.38)
--- NOTE | 2018-01-30 13:52 | CP.PCM.CON ---
History of Present Illness - History of Present Illness History of Present Illness: 82 y/o man presented with reported syncope for 10 seconds. > Hx obtained from daughter who was at bedside intermediate resident: mostly bed bound and dependent on ADLS feeding ect. Hx of Alzeimers chronic and dementia > per daughter patient has bever had any cardiac problems, no HTN or DM > Was usuall self at [facility] and progressed to generalized acute on chronic weakness and lethargy and por PO intake. Also reported is cough clear- yellowish sputum. > No reports of Chest pain, palpitation, no fevers, chills, N/V or diarrhea SOCHX: No Smoking, no ETOH no DRUGS Surgery: hx of prostate CA Review of Systems - Review of Systems All systems: reviewed and no additional remarkable complaints except Past Patient History - Infectious Disease Hx of Infectious Diseases: None - Past Medical History & Family History Past Medical History?: Yes - Past Social History Smoking Status: Never Smoked - CARDIAC Hx Cardiac Disorders: Yes Hx Hypercholesterolemia: Yes - PULMONARY Hx Respiratory Disorders: No - NEUROLOGICAL Hx Neurological Disorder: Yes Hx Alzheimer's Disease: Yes - HEENT Hx HEENT Problems: Yes Hx Cataracts: Yes - RENAL Hx Chronic Kidney Disease: No - ENDOCRINE/METABOLIC Hx Endocrine Disorders: No - HEMATOLOGICAL/ONCOLOGICAL Hx Blood Disorders: Yes Hx Anemia: Yes - INTEGUMENTARY Hx Dermatological Problems: No - MUSCULOSKELETAL/RHEUMATOLOGICAL Hx Musculoskeletal Disorders: Yes Hx Arthritis: Yes Hx Back Pain: Yes Hx Falls: Yes - GASTROINTESTINAL Hx Gastrointestinal Disorders: Yes Hx Constipation: Yes (with impaction) - GENITOURINARY/GYNECOLOGICAL Hx Genitourinary Disorders: Yes Hx Prostate Cancer: Yes Hx Prostate Problems: Yes - PSYCHIATRIC Hx Psychophysiologic Disorder: No Hx Substance Use: No - SURGICAL HISTORY Hx Surgeries: Yes Hx Appendectomy: Yes Hx Cataract Extraction: Yes - ANESTHESIA Hx Anesthesia: Yes Hx Anesthesia Reactions: No Hx Malignant Hyperthermia: No Meds Allergies/Adverse Reactions: Allergies Allergy/AdvReac Type Severity Reaction Status Date / Time No Known Allergies Allergy Verified 01/29/18 15:22 - Medications Medications: Current Medications Enoxaparin Sodium (Lovenox) 40 mg SC DAILY [facility] Last Admin: 01/30/18 10:00 Dose: 40 mg Home Med (Bicalutamide [Casodex]) 50 mg PO DAILY [facility] Home Med (Docusate Sodium [Pedia-Lax Stool Softener]) 10 ml PO TID [facility] Home Med (Lubiprostone [Amitiza]) 16 mcg PO DAILY [facility] Home Med (Magnesium Citrate [Magnesium Citrate]) 100 mg PO DAILY [facility] Lactulose (Enulose) 10 gm PO Q6 [facility] Last Admin: 01/30/18 11:32 Dose: 10 gm Memantine (Namenda) 10 mg PO DAILY [facility] Last Admin: 01/30/18 10:20 Dose: 10 mg Multivitamins (Hexavitamin) 1 tab PO DAILY [facility] Last Admin: 01/30/18 10:20 Dose: 1 tab Pantoprazole Sodium (Protonix Inj) 40 mg IVP DAILY [facility] Last Admin: 01/30/18 10:00 Dose: 40 mg Sennosides (Senokot Tab) 8.6 mg PO QPM [facility] Physical Exam - Constitutional Appears: Chronically Ill, Other (weak, frail, lethargic, non-communicative) - Eye Exam Eye Exam: absent: Normal appearance (L. eye irritated, mild redness) - ENT Exam ENT Exam: Normal Oropharynx - Neck Exam Neck exam: Positive for: Normal Inspection. Negative for: Tenderness - Respiratory Exam Respiratory Exam: Clear to Auscultation Bilateral, Rhonchi. absent: Wheezes - Cardiovascular Exam Cardiovascular Exam: REGULAR RHYTHM, +S1, +S2. absent: +S4, Systolic Murmur - GI/Abdominal Exam GI & Abdominal Exam: Normal Bowel Sounds, Soft. absent: Tenderness - Extremities Exam Extremities exam: Positive for: normal inspection. Negative for: calf tenderness, pedal edema - Neurological Exam Additional comments: Lethargic, non communicative - Skin Skin Exam: Normal Color, Warm Results - Vital Signs Recent Vital Signs: Last Vital Signs Temp 98.0 F 01/30/18 07:15 Pulse 60 01/30/18 07:15 Resp 18 01/30/18 07:15 BP 126/65 01/30/18 07:15 Pulse Ox 97 01/30/18 07:15 - Labs Result Diagrams: 01/30/18 07:07 01/29/18 17:03 Labs: Laboratory Results - last 24 hr 01/29/18 01/29/18 01/29/18 17:03 17:03 17:03 WBC 16.9 H D RBC 3.55 L Hgb 9.8 L Hct 30.5 L MCV 85.8 MCH 27.6 MCHC 32.1 L RDW 16.4 H Plt Count 552 H MPV 6.6 L Neut % (Auto) 87.0 H Lymph % (Auto) 3.7 L [place] % (Auto) 9.0 Eos % (Auto) 0.0 Baso % (Auto) 0.3 Neut # (Auto) 14.7 H Lymph # (Auto) 0.6 L [place] # (Auto) 1.5 H Eos # (Auto) 0.0 Baso # (Auto) 0.1 Neutrophils % (Manual) 84 H Band Neutrophils % 1 Lymphocytes % (Manual) 5 L Monocytes % (Manual) 10 Platelet Estimate Slightly increased H Hypochromasia (manual) Poikilocytosis (manual Slight Anisocytosis (manual) Slight Target Cells PT 16.2 H INR 1.4 APTT 30 Sodium 135 Potassium 4.4 Chloride 95 L Carbon Dioxide 29 Anion Gap 15 BUN 11 Creatinine 0.6 L Est GFR ( Amer) > 60 Est GFR (Non-Af Amer) > 60 Random Glucose 153 H Calcium 9.1 Total Bilirubin 0.3 AST 27 ALT 31 Alkaline Phosphatase 253 H D Total Creatine Kinase < 20 L CK-MB (Mass) 0.29 Troponin I < 0.0120 Total Protein 8.6 H Albumin 2.9 L Globulin 5.7 H Albumin/Globulin Ratio 0.5 L Urine Color Urine Clarity Urine pH Ur Specific [place] Urine Protein Urine Glucose (UA) Urine Ketones Urine Blood Urine Nitrate Urine Bilirubin Urine Urobilinogen Ur Leukocyte Esterase Urine WBC (Auto) Urine RBC (Auto) Influenza Typ A,B (EIA) 01/29/18 01/29/18 01/30/18 17:21 18:12 02:27 WBC RBC Hgb Hct MCV MCH MCHC RDW Plt Count MPV Neut % (Auto) Lymph % (Auto) [place] % (Auto) Eos % (Auto) Baso % (Auto) Neut # (Auto) Lymph # (Auto) [place] # (Auto) Eos # (Auto) Baso # (Auto) Neutrophils % (Manual) Band Neutrophils % Lymphocytes % (Manual) Monocytes % (Manual) Platelet Estimate Hypochromasia (manual) Poikilocytosis (manual Anisocytosis (manual) Target Cells PT INR APTT Sodium Potassium Chloride Carbon Dioxide Anion Gap BUN Creatinine Est GFR ( Amer) Est GFR (Non-Af Amer) Random Glucose Calcium Total Bilirubin AST ALT Alkaline Phosphatase Total Creatine Kinase 21 L CK-MB (Mass) 0.26 Troponin I < 0.0120 Total Protein Albumin Globulin Albumin/Globulin Ratio Urine Color Yellow Urine Clarity Hazy Urine pH 7.0 Ur Specific [place] 1.014 Urine Protein Negative Urine Glucose (UA) Normal Urine Ketones Negative Urine Blood Negative Urine Nitrate Negative Urine Bilirubin Negative Urine Urobilinogen 4.0 Ur Leukocyte Esterase Neg Urine WBC (Auto) 1 Urine RBC (Auto) 1 Influenza Typ A,B (EIA) Negative for flu a/b 01/30/18 01/30/18 07:07 10:49 WBC 14.4 H RBC 3.26 L Hgb 9.0 L Hct 28.0 L MCV 85.7 MCH 27.7 MCHC 32.3 L RDW 16.3 H Plt Count 557 H MPV 6.9 L Neut % (Auto) 79.6 H Lymph % (Auto) 7.5 L [place] % (Auto) 12.5 H Eos % (Auto) 0.1 Baso % (Auto) 0.3 Neut # (Auto) 11.4 H Lymph # (Auto) 1.1 [place] # (Auto) 1.8 H Eos # (Auto) 0.0 Baso # (Auto) 0.0 Neutrophils % (Manual) 80 H Band Neutrophils % 1 Lymphocytes % (Manual) 7 L Monocytes % (Manual) 12 H Platelet Estimate Increased H Hypochromasia (manual) Slight Poikilocytosis (manual Slight Anisocytosis (manual) Slight Target Cells Slight PT INR APTT Sodium Potassium Chloride Carbon Dioxide Anion Gap BUN Creatinine Est GFR ( Amer) Est GFR (Non-Af Amer) Random Glucose Calcium Total Bilirubin AST ALT Alkaline Phosphatase Total Creatine Kinase 23 L CK-MB (Mass) 0.26 Troponin I < 0.0120 Total Protein Albumin Globulin Albumin/Globulin Ratio Urine Color Urine Clarity Urine pH Ur Specific [place] Urine Protein Urine Glucose (UA) Urine Ketones Urine Blood Urine Nitrate Urine Bilirubin Urine Urobilinogen Ur Leukocyte Esterase Urine WBC (Auto) Urine RBC (Auto) Influenza Typ A,B (EIA) - EKG Data EKG Interpreted by: Myself EKG shows normal: Sinus rhythm Rate: Normal Assessment & Plan - Assessment and Plan (Free Text) Assessment: Reported syncope > Further queestioning appears to be acute on chronic lethargy/weakness and fatigue and somnolence. 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 Adenopathy reported neck/mediatinum Lytic lesions T12 Based on the above appears non-cardiac f/u echo IVF's
--- NOTE | 2018-01-30 14:47 | CARD ---
APPROVED REPORT EKG Measurement Heart [id number] <Conclusion> Normal sinus rhythm Normal ECG
--- NOTE | 2018-01-30 15:13 | CP.PCM.CON ---
<Laurie Diaz - Last Filed: 01/30/18 19:41> History of Present Illness - History of Present Illness History of Present Illness: PGY4 Initial GI Consult Manuel Belle is a 82M with a hx of alzheimers who presents to the ER from the group home for constipation. Pt is alert but essentially non-verbal. All information obtained is from the RN and EMR. Pt has had multiple ER visit for similar issues of obstipation, constipation, and impactions. He was last seen at [facility] in 11/2017 for similar complaints. Nursing overnight reports no BM. He had a CT which revealed significant stool burden and possible rectal impaction with stercoral ulcer. Pt had no significant events since being admitted. Nursing denies any rectal bleeding, melena, or diarrhea. ROS: could not be assessed PMHx: alzheimers (as per EMR) Surgery: cataracts (as per EMR) Social hx: could not obtain Family Hx: could not obtain Endo hx: unknown Past Patient History - Infectious Disease Hx of Infectious Diseases: None - Past Medical History & Family History Past Medical History?: Yes - Past Social History Smoking Status: Never Smoked - CARDIAC Hx Cardiac Disorders: Yes Hx Hypercholesterolemia: Yes - PULMONARY Hx Respiratory Disorders: No - NEUROLOGICAL Hx Neurological Disorder: Yes Hx Alzheimer's Disease: Yes - HEENT Hx HEENT Problems: Yes Hx Cataracts: Yes - RENAL Hx Chronic Kidney Disease: No - ENDOCRINE/METABOLIC Hx Endocrine Disorders: No - HEMATOLOGICAL/ONCOLOGICAL Hx Blood Disorders: Yes Hx Anemia: Yes - INTEGUMENTARY Hx Dermatological Problems: No - MUSCULOSKELETAL/RHEUMATOLOGICAL Hx Musculoskeletal Disorders: Yes Hx Arthritis: Yes Hx Back Pain: Yes Hx Falls: Yes - GASTROINTESTINAL Hx Gastrointestinal Disorders: Yes Hx Constipation: Yes (with impaction) - GENITOURINARY/GYNECOLOGICAL Hx Genitourinary Disorders: Yes Hx Prostate Cancer: Yes Hx Prostate Problems: Yes - PSYCHIATRIC Hx Psychophysiologic Disorder: No Hx Substance Use: No - SURGICAL HISTORY Hx Surgeries: Yes Hx Appendectomy: Yes Hx Cataract Extraction: Yes - ANESTHESIA Hx Anesthesia: Yes Hx Anesthesia Reactions: No Hx Malignant Hyperthermia: No Meds Allergies/Adverse Reactions: Allergies Allergy/AdvReac Type Severity Reaction Status Date / Time No Known Allergies Allergy Verified 01/29/18 15:22 - Medications Medications: Current Medications Enoxaparin Sodium (Lovenox) 40 mg SC DAILY [facility] Last Admin: 01/30/18 10:00 Dose: 40 mg Home Med (Bicalutamide [Casodex]) 50 mg PO DAILY [facility] Home Med (Docusate Sodium [Pedia-Lax Stool Softener]) 10 ml PO TID [facility] Home Med (Lubiprostone [Amitiza]) 16 mcg PO DAILY [facility] Home Med (Magnesium Citrate [Magnesium Citrate]) 100 mg PO DAILY [facility] Dextrose/Sodium Chloride (Dextrose 5%/0.45% Ns 1000 Ml) 1,000 mls @ 40 mls/hr IV .Q24H [facility] Stop: 01/31/18 15:14 Lactulose (Enulose) 10 gm PO Q6 [facility] Last Admin: 01/30/18 11:32 Dose: 10 gm Memantine (Namenda) 10 mg PO DAILY [facility] Last Admin: 01/30/18 10:20 Dose: 10 mg Multivitamins (Hexavitamin) 1 tab PO DAILY [facility] Last Admin: 01/30/18 10:20 Dose: 1 tab Pantoprazole Sodium (Protonix Inj) 40 mg IVP DAILY [facility] Last Admin: 01/30/18 10:00 Dose: 40 mg Sennosides (Senokot Tab) 8.6 mg PO QPM [facility] Physical Exam - Constitutional Appears: Well, No Acute Distress - Head Exam Head Exam: ATRAUMATIC, NORMOCEPHALIC - Eye Exam Eye Exam: Normal appearance - ENT Exam ENT Exam: Mucous Membranes Moist, Normal Exam - Neck Exam Neck exam: Positive for: Normal Inspection - Respiratory Exam Respiratory Exam: Clear to Auscultation Bilateral, NORMAL BREATHING PATTERN. absent: Rales, Rhonchi, Wheezes, Respiratory Distress - Cardiovascular Exam Cardiovascular Exam: REGULAR RHYTHM, +S1, +S2 - GI/Abdominal Exam GI & Abdominal Exam: Normal Bowel Sounds, Soft. absent: Distended, Firm, Guarding, Hernia, Rigid, Tenderness - Rectal Exam Rectal Exam: absent: Fecal Impaction Additional comments: brown stool - Neurological Exam Neurological exam: Altered - Skin Skin Exam: Dry, Intact, Normal Color, Warm Results - Vital Signs Recent Vital Signs: Last Vital Signs Temp 98.0 F 01/30/18 07:15 Pulse 60 01/30/18 07:15 Resp 18 01/30/18 07:15 BP 126/65 01/30/18 07:15 Pulse Ox 97 01/30/18 07:15 - Labs Result Diagrams: 01/30/18 07:07 01/29/18 17:03 Labs: Laboratory Results - last 24 hr 01/29/18 01/29/18 01/29/18 17:03 17:03 17:03 WBC 16.9 H D RBC 3.55 L Hgb 9.8 L Hct 30.5 L MCV 85.8 MCH 27.6 MCHC 32.1 L RDW 16.4 H Plt Count 552 H MPV 6.6 L Neut % (Auto) 87.0 H Lymph % (Auto) 3.7 L [place] % (Auto) 9.0 Eos % (Auto) 0.0 Baso % (Auto) 0.3 Neut # (Auto) 14.7 H Lymph # (Auto) 0.6 L [place] # (Auto) 1.5 H Eos # (Auto) 0.0 Baso # (Auto) 0.1 Neutrophils % (Manual) 84 H Band Neutrophils % 1 Lymphocytes % (Manual) 5 L Monocytes % (Manual) 10 Platelet Estimate Slightly increased H Hypochromasia (manual) Poikilocytosis (manual Slight Anisocytosis (manual) Slight Target Cells PT 16.2 H INR 1.4 APTT 30 Sodium 135 Potassium 4.4 Chloride 95 L Carbon Dioxide 29 Anion Gap 15 BUN 11 Creatinine 0.6 L Est GFR ( Amer) > 60 Est GFR (Non-Af Amer) > 60 Random Glucose 153 H Calcium 9.1 Total Bilirubin 0.3 AST 27 ALT 31 Alkaline Phosphatase 253 H D Total Creatine Kinase < 20 L CK-MB (Mass) 0.29 Troponin I < 0.0120 Total Protein 8.6 H Albumin 2.9 L Globulin 5.7 H Albumin/Globulin Ratio 0.5 L Urine Color Urine Clarity Urine pH Ur Specific [place] Urine Protein Urine Glucose (UA) Urine Ketones Urine Blood Urine Nitrate Urine Bilirubin Urine Urobilinogen Ur Leukocyte Esterase Urine WBC (Auto) Urine RBC (Auto) Influenza Typ A,B (EIA) 01/29/18 01/29/18 01/30/18 17:21 18:12 02:27 WBC RBC Hgb Hct MCV MCH MCHC RDW Plt Count MPV Neut % (Auto) Lymph % (Auto) [place] % (Auto) Eos % (Auto) Baso % (Auto) Neut # (Auto) Lymph # (Auto) [place] # (Auto) Eos # (Auto) Baso # (Auto) Neutrophils % (Manual) Band Neutrophils % Lymphocytes % (Manual) Monocytes % (Manual) Platelet Estimate Hypochromasia (manual) Poikilocytosis (manual Anisocytosis (manual) Target Cells PT INR APTT Sodium Potassium Chloride Carbon Dioxide Anion Gap BUN Creatinine Est GFR ( Amer) Est GFR (Non-Af Amer) Random Glucose Calcium Total Bilirubin AST ALT Alkaline Phosphatase Total Creatine Kinase 21 L CK-MB (Mass) 0.26 Troponin I < 0.0120 Total Protein Albumin Globulin Albumin/Globulin Ratio Urine Color Yellow Urine Clarity Hazy Urine pH 7.0 Ur Specific [place] 1.014 Urine Protein Negative Urine Glucose (UA) Normal Urine Ketones Negative Urine Blood Negative Urine Nitrate Negative Urine Bilirubin Negative Urine Urobilinogen 4.0 Ur Leukocyte Esterase Neg Urine WBC (Auto) 1 Urine RBC (Auto) 1 Influenza Typ A,B (EIA) Negative for flu a/b 01/30/18 01/30/18 07:07 10:49 WBC 14.4 H RBC 3.26 L Hgb 9.0 L Hct 28.0 L MCV 85.7 MCH 27.7 MCHC 32.3 L RDW 16.3 H Plt Count 557 H MPV 6.9 L Neut % (Auto) 79.6 H Lymph % (Auto) 7.5 L [place] % (Auto) 12.5 H Eos % (Auto) 0.1 Baso % (Auto) 0.3 Neut # (Auto) 11.4 H Lymph # (Auto) 1.1 [place] # (Auto) 1.8 H Eos # (Auto) 0.0 Baso # (Auto) 0.0 Neutrophils % (Manual) 80 H Band Neutrophils % 1 Lymphocytes % (Manual) 7 L Monocytes % (Manual) 12 H Platelet Estimate Increased H Hypochromasia (manual) Slight Poikilocytosis (manual Slight Anisocytosis (manual) Slight Target Cells Slight PT INR APTT Sodium Potassium Chloride Carbon Dioxide Anion Gap BUN Creatinine Est GFR ( Amer) Est GFR (Non-Af Amer) Random Glucose Calcium Total Bilirubin AST ALT Alkaline Phosphatase Total Creatine Kinase 23 L CK-MB (Mass) 0.26 Troponin I < 0.0120 Total Protein Albumin Globulin Albumin/Globulin Ratio Urine Color Urine Clarity Urine pH Ur Specific [place] Urine Protein Urine Glucose (UA) Urine Ketones Urine Blood Urine Nitrate Urine Bilirubin Urine Urobilinogen Ur Leukocyte Esterase Urine WBC (Auto) Urine RBC (Auto) Influenza Typ A,B (EIA) Assessment & Plan - Assessment and Plan (Free Text) Assessment: Manuel Belle is a 82M w/ hx of alzheimer who presents to the ED due to constipation. found to have significant colonic stool birden and possible impactions and stercoral ulcer. Chronic constipation Impaction? Stercocal ulcer hx of Alzheimers Lytic lesion of the lumbar? Plan: -recommend fleet enema x3 -will start on lactulose for now -recommend starting miralax BID and senna at bedtime as an outpt -recommend increased his water intake and fiber intake -recommend hem/onc eval of lytic lesion, with suspicion of lumbar mets -will hold off on any endoscopic eval for now -diet as tolerated and recommended by speech Will D/w <Benjamín Green Y - Last Filed: 01/30/18 20:39> Meds - Medications Medications: Current Medications Enoxaparin Sodium (Lovenox) 40 mg SC DAILY [facility] Last Admin: 01/30/18 10:00 Dose: 40 mg Home Med (Bicalutamide [Casodex]) 50 mg PO DAILY [facility] Home Med (Docusate Sodium [Pedia-Lax Stool Softener]) 10 ml PO TID [facility] Home Med (Lubiprostone [Amitiza]) 16 mcg PO DAILY [facility] Home Med (Magnesium Citrate [Magnesium Citrate]) 100 mg PO DAILY [facility] Dextrose/Sodium Chloride (Dextrose 5%/0.45% Ns 1000 Ml) 1,000 mls @ 40 mls/hr IV .Q24H [facility] Stop: 01/31/18 15:14 Last Admin: 01/30/18 16:50 Dose: 40 mls/hr Lactulose (Enulose) 10 gm PO Q6 [facility] Last Admin: 01/30/18 19:03 Dose: 10 gm Memantine (Namenda) 10 mg PO DAILY [facility] Last Admin: 01/30/18 10:20 Dose: 10 mg Multivitamins (Hexavitamin) 1 tab PO DAILY [facility] Last Admin: 01/30/18 10:20 Dose: 1 tab Pantoprazole Sodium (Protonix Inj) 40 mg IVP DAILY [facility] Last Admin: 01/30/18 10:00 Dose: 40 mg Sennosides (Senokot Tab) 8.6 mg PO QPM [facility] Last Admin: 01/30/18 19:03 Dose: 8.6 mg Results - Vital Signs Recent Vital Signs: Last Vital Signs Temp 98.2 F 01/30/18 15:33 Pulse 87 01/30/18 15:33 Resp 18 01/30/18 15:33 BP 107/61 01/30/18 15:33 Pulse Ox 100 01/30/18 15:33 - Labs Result Diagrams: 01/30/18 07:07 01/29/18 17:03 Labs: Laboratory Results - last 24 hr 01/30/18 01/30/18 01/30/18 02:27 07:07 10:49 WBC 14.4 H RBC 3.26 L Hgb 9.0 L Hct 28.0 L MCV 85.7 MCH 27.7 MCHC 32.3 L RDW 16.3 H Plt Count 557 H MPV 6.9 L Neut % (Auto) 79.6 H Lymph % (Auto) 7.5 L [place] % (Auto) 12.5 H Eos % (Auto) 0.1 Baso % (Auto) 0.3 Neut # (Auto) 11.4 H Lymph # (Auto) 1.1 [place] # (Auto) 1.8 H Eos # (Auto) 0.0 Baso # (Auto) 0.0 Neutrophils % (Manual) 80 H Band Neutrophils % 1 Lymphocytes % (Manual) 7 L Monocytes % (Manual) 12 H Platelet Estimate Increased H Hypochromasia (manual) Slight Poikilocytosis (manual Slight Anisocytosis (manual) Slight Target Cells Slight Total Creatine Kinase 21 L 23 L CK-MB (Mass) 0.26 0.26 Troponin I < 0.0120 < 0.0120 Attending/Attestation - Attestation I have personally seen and examined this patient.: Yes I have fully participated in the care of the patient.: Yes I have reviewed all pertinent clinical information: Yes Notes (Text): 01/30/18 20:31 I have seen and examined patient with GI fellow. Agree with above documentation with the following additions. In brief, this is an 82 year old male with history of alzheimers dementia, prostate CA, who is sent to hospital from nursing facility for evaluation of abdominal pain and constipation. Patient himself is not able to participate in meaningful conversation, additional information obtained via chart review, discussion with nursing staff and patient family members. According to nursing facility staff, patient has not had bowel movement in past 3 days and has been complaining of generalized abdominal pain. He apparently is tolerating PO diet with assistance during feeding and there is no reported nausea, vomiting, fever/chills, weight loss, or rectal bleeding. Unknown regarding prior endoscopic history. Additional physical examination: Abdomen: no palpable hepato/splenomegaly, midline surgical scar Alzheimer's dementia History of prostate cancer Abdominal pain, constipation CT imaging reviewed by me showing significant fecal retention with proctitis, mediastinal adenopathy, lytic bone lesion L2 - Diet as tolerated - Patient with large bowel movement following fleet enema as per nursing staff. Continue with oral lactulose therapy. - Follow up oncology evaluation given lytic bone lesion with history of prostate cancer - Will need to encourage nursing staff to provide patient increased water and fiber intake - Would consider short course of antibiotic therapy for proctitis with leukocytosis - Will continue to monitor patient clinical course
[2018-01-30] MEDS ORDERED: Dextrose 5%/0.45% NS 1,000 ML IV SCH (15:15)
--- NOTE | 2018-01-30 23:30 | CP.PCM.CON ---
History of Present Illness - History of Present Illness History of Present Illness: 82 year old male with a history of Alzheimers dementia, ? prostate cancer, admitted from the halfway with syncope and fecal impaction, found to have a lytic bone lesion by CT scan. I am unable to obtain a history from the patient. Review of his medical records shows a CT scan revealed an L2 lytic lesion as well as neck and mediastinal lymphadenopathy. He does have emphysematous changes noted in the lungs. Past medical, surgical, family, social history cannot be obtained from the patient. Allergies: NKA Review of systems cannot be obtained. Past Patient History - Infectious Disease Hx of Infectious Diseases: None - Past Medical History & Family History Past Medical History?: Yes - Past Social History Smoking Status: Never Smoked - CARDIAC Hx Cardiac Disorders: Yes Hx Hypercholesterolemia: Yes - PULMONARY Hx Respiratory Disorders: No - NEUROLOGICAL Hx Neurological Disorder: Yes Hx Alzheimer's Disease: Yes - HEENT Hx HEENT Problems: Yes Hx Cataracts: Yes - RENAL Hx Chronic Kidney Disease: No - ENDOCRINE/METABOLIC Hx Endocrine Disorders: No - HEMATOLOGICAL/ONCOLOGICAL Hx Blood Disorders: Yes Hx Anemia: Yes - INTEGUMENTARY Hx Dermatological Problems: No - MUSCULOSKELETAL/RHEUMATOLOGICAL Hx Musculoskeletal Disorders: Yes Hx Arthritis: Yes Hx Back Pain: Yes Hx Falls: Yes - GASTROINTESTINAL Hx Gastrointestinal Disorders: Yes Hx Constipation: Yes (with impaction) - GENITOURINARY/GYNECOLOGICAL Hx Genitourinary Disorders: Yes Hx Prostate Cancer: Yes Hx Prostate Problems: Yes - PSYCHIATRIC Hx Psychophysiologic Disorder: No Hx Substance Use: No - SURGICAL HISTORY Hx Surgeries: Yes Hx Appendectomy: Yes Hx Cataract Extraction: Yes - ANESTHESIA Hx Anesthesia: Yes Hx Anesthesia Reactions: No Hx Malignant Hyperthermia: No Meds Allergies/Adverse Reactions: Allergies Allergy/AdvReac Type Severity Reaction Status Date / Time No Known Allergies Allergy Verified 01/29/18 15:22 - Medications Medications: Current Medications Enoxaparin Sodium (Lovenox) 40 mg SC DAILY [facility] Last Admin: 01/30/18 10:00 Dose: 40 mg Home Med (Bicalutamide [Casodex]) 50 mg PO DAILY [facility] Home Med (Docusate Sodium [Pedia-Lax Stool Softener]) 10 ml PO TID [facility] Home Med (Lubiprostone [Amitiza]) 16 mcg PO DAILY [facility] Home Med (Magnesium Citrate [Magnesium Citrate]) 100 mg PO DAILY [facility] Dextrose/Sodium Chloride (Dextrose 5%/0.45% Ns 1000 Ml) 1,000 mls @ 40 mls/hr IV .Q24H [facility] Stop: 01/31/18 15:14 Last Admin: 01/30/18 16:50 Dose: 40 mls/hr Lactulose (Enulose) 10 gm PO Q6 [facility] Last Admin: 01/30/18 19:03 Dose: 10 gm Memantine (Namenda) 10 mg PO DAILY [facility] Last Admin: 01/30/18 10:20 Dose: 10 mg Multivitamins (Hexavitamin) 1 tab PO DAILY [facility] Last Admin: 01/30/18 10:20 Dose: 1 tab Pantoprazole Sodium (Protonix Inj) 40 mg IVP DAILY [facility] Last Admin: 01/30/18 10:00 Dose: 40 mg Sennosides (Senokot Tab) 8.6 mg PO QPM [facility] Last Admin: 01/30/18 19:03 Dose: 8.6 mg Physical Exam - Head Exam Head Exam: ATRAUMATIC - Eye Exam Eye Exam: Normal appearance - ENT Exam ENT Exam: Mucous Membranes Dry - Respiratory Exam Respiratory Exam: NORMAL BREATHING PATTERN - Cardiovascular Exam Cardiovascular Exam: +S1, +S2 - GI/Abdominal Exam GI & Abdominal Exam: Normal Bowel Sounds - Neurological Exam Neurological exam: Altered - Psychiatric Exam Psychiatric exam: Flat Affect - Skin Skin Exam: Warm Results - Vital Signs Recent Vital Signs: Last Vital Signs Temp 98.2 F 01/30/18 15:33 Pulse 87 01/30/18 15:33 Resp 18 01/30/18 15:33 BP 107/61 01/30/18 15:33 Pulse Ox 100 01/30/18 15:33 - Labs Result Diagrams: 01/30/18 07:07 01/29/18 17:03 Labs: Laboratory Results - last 24 hr 01/30/18 01/30/18 01/30/18 02:27 07:07 10:49 WBC 14.4 H RBC 3.26 L Hgb 9.0 L Hct 28.0 L MCV 85.7 MCH 27.7 MCHC 32.3 L RDW 16.3 H Plt Count 557 H MPV 6.9 L Neut % (Auto) 79.6 H Lymph % (Auto) 7.5 L Amelia % (Auto) 12.5 H Eos % (Auto) 0.1 Baso % (Auto) 0.3 Neut # (Auto) 11.4 H Lymph # (Auto) 1.1 Amelia # (Auto) 1.8 H Eos # (Auto) 0.0 Baso # (Auto) 0.0 Neutrophils % (Manual) 80 H Band Neutrophils % 1 Lymphocytes % (Manual) 7 L Monocytes % (Manual) 12 H Platelet Estimate Increased H Hypochromasia (manual) Slight Poikilocytosis (manual Slight Anisocytosis (manual) Slight Target Cells Slight Total Creatine Kinase 21 L 23 L CK-MB (Mass) 0.26 0.26 Troponin I < 0.0120 < 0.0120 Assessment & Plan (1) Bone lesion Assessment and Plan: rule out multiple myeloma, rule out metastatic disease will send serum immunofixation, SPEP, free light chain assay; if positive, will need bone marrow biopsy - will discuss with family on how aggressive in the w/u they wish skeletal survey to evaluate skeleton will check PSA although radiographic appearance not suggestive of prostate mets Status: Acute (2) Lymphadenopathy Assessment and Plan: involving the neck and mediastinum ? malignancy Status: Acute (3) Anemia Assessment and Plan: will check retic count, b12, folate, ferritin, FOBT to further characterize Thank you for this interesting consult. Status: Acute
[2018-01-31 06:33] LABS: BASO # 0.1 K/uL (0.0-0.2); BASO % 0.4 % (0.0-2.0); EOS % 0.1 % (0.0-4.0); HEMOGLOBIN 8.3 g/dL (12.0-18.0); LYMPH # 1.1 K/uL (1.0-4.3); LYMPH % 7.4 % (20.0-40.0); MEAN CELL VOLUME 84.9 fL (80.0-94.0); MEAN CORPUSCULAR HEMOGLOBIN 27.5 pg (27.0-31.0); MEAN CORPUSCULAR HGB CONC 32.4 g/dL (33.0-37.0); MEAN PLATELET VOLUME 6.9 fL (7.2-11.7); MONO # 2.1 K/uL (0.0-0.8); MONO % 13.6 % (0.0-10.0); NEUT # 11.9 K/uL (1.8-7.0); NEUT % 78.5 % (50.0-75.0); PLATELET COUNT 508 K/uL (130-400); RBC 3.04 Mil/uL (4.40-5.90); RED CELL DISTRIBUTION WIDTH 16.4 % (11.5-14.5); WHITE BLOOD COUNT 15.2 K/uL (4.8-10.8)
[2018-01-31 07:04] LABS: BLOOD UREA NITROGEN 11 mg/dL (9-20); CALCIUM 9.1 mg/dl (8.6-10.4); GFR AFRICAN-AMERICAN > 60; GFR NON-AFRICAN AMERICAN > 60
[2018-01-31 07:59] LABS: FOLATE 10.8 ng/mL
[2018-01-31 08:16] LABS: LYMPHOCYTE 5 % (20-40); MONOCYTE 11 % (0-10); NEUTROPHIL 84 % (50-75); PLATELET ESTIMATE NORMAL (NORMAL); TOTAL CELLS COUNTED 100
[2018-01-31 08:17] LABS: ANISOCYTOSIS SLIGHT; HYPOCHROMIC SLIGHT; POIKILOCYTOSIS SLIGHT; TARGET CELLS SLIGHT
--- NOTE | 2018-01-31 09:37 | CP.PCM.PN ---
<Laurie Diaz - Last Filed: 01/31/18 09:39> Subjective - Date & Time of Evaluation Date of Evaluation: 01/31/18 Time of Evaluation: 07:50 - Subjective Subjective: PGY4 GI Follow-up Pt seen and examined bedside non-verbal no acute events overnight 2 larhe BMs overnight and in the previous afternoon ROS: 10 point could not be conducted due to none verbal state Objective - Vital Signs/Intake and Output Vital Signs (last 24 hours): Temp Pulse Resp BP Pulse Ox 97 F L 93 H 20 111/65 100 01/31/18 07:00 01/31/18 07:00 01/31/18 07:00 01/31/18 07:00 01/31/18 07:00 Intake and Output: 01/31/18 01/31/18 06:59 18:59 Intake Total 770 Output Total 250 Balance 520 - Medications Medications: Current Medications Enoxaparin Sodium (Lovenox) 40 mg SC DAILY [facility] Last Admin: 01/30/18 10:00 Dose: 40 mg Home Med (Bicalutamide [Casodex]) 50 mg PO DAILY [facility] Home Med (Docusate Sodium [Pedia-Lax Stool Softener]) 10 ml PO TID [facility] Home Med (Lubiprostone [Amitiza]) 16 mcg PO DAILY [facility] Home Med (Magnesium Citrate [Magnesium Citrate]) 100 mg PO DAILY [facility] Dextrose/Sodium Chloride (Dextrose 5%/0.45% Ns 1000 Ml) 1,000 mls @ 40 mls/hr IV .Q24H [facility] Stop: 01/31/18 15:14 Last Admin: 01/30/18 16:50 Dose: 40 mls/hr Lactulose (Enulose) 10 gm PO Q6 [facility] Last Admin: 01/31/18 06:19 Dose: 10 gm Memantine (Namenda) 10 mg PO DAILY [facility] Last Admin: 01/30/18 10:20 Dose: 10 mg Multivitamins (Hexavitamin) 1 tab PO DAILY [facility] Last Admin: 01/30/18 10:20 Dose: 1 tab Pantoprazole Sodium (Protonix Inj) 40 mg IVP DAILY [facility] Last Admin: 01/30/18 10:00 Dose: 40 mg Sennosides (Senokot Tab) 8.6 mg PO QPM [facility] Last Admin: 03/29/18 19:03 Dose: 8.6 mg - Labs Labs: 01/31/18 06:22 01/31/18 06:22 PT 16.2 SECONDS (9.7-12.2) H 01/29/18 17:03 INR 1.4 01/29/18 17:03 APTT 30 SECONDS (21-34) 01/29/18 17:03 - Constitutional Appears: Well, No Acute Distress - Head Exam Head Exam: ATRAUMATIC, NORMOCEPHALIC - Eye Exam Eye Exam: Normal appearance - ENT Exam ENT Exam: Mucous Membranes Moist - Respiratory Exam Respiratory Exam: Clear to Ausculation Bilateral, NORMAL BREATHING PATTERN. absent: Rales, Rhonchi, Wheezes, Respiratory Distress - Cardiovascular Exam Cardiovascular Exam: REGULAR RHYTHM, +S1, +S2 - GI/Abdominal Exam GI & Abdominal Exam: Soft, Normal Bowel Sounds. absent: Guarding, Rigid, Tenderness, Organomegaly - Extremities Exam Extremities Exam: absent: Joint Swelling, Pedal Edema - Neurological Exam Neurological Exam: Alert, Awake. absent: Oriented x3 - Psychiatric Exam Additional comments: could not assess - Skin Skin Exam: Dry, Intact, Normal Color, Warm Assessment and Plan - Assessment and Plan (Free Text) Assessment: Manuel Belle is a 82M w/ hx of alzheimer who presents to the ED due to constipation. found to have significant colonic stool birden and possible impactions and stercoral ulcer. Chronic constipation Impaction? Stercocal ulcer hx of Alzheimers Lytic lesion of the lumbar? Plan: -continue lactulose for now -recommend continuing at least miralax BID w/ senna at bedtime as oupt or lactulose daily -recommend increased his water intake and fiber intake -hem/onc eval of lytic lesion, with suspicion of lumbar mets -diet as tolerated and recommended by speech -will sign off Will D/w <Junior Taylor - Last Filed: 01/31/18 12:51> Objective - Vital Signs/Intake and Output Vital Signs (last 24 hours): Temp Pulse Resp BP Pulse Ox 97 F L 93 H 20 111/65 100 01/31/18 07:00 01/31/18 07:00 01/31/18 07:00 01/31/18 07:00 01/31/18 07:00 Intake and Output: 01/31/18 01/31/18 06:59 18:59 Intake Total 770 Output Total 250 Balance 520 - Medications Medications: Current Medications Docusate Sodium (Colace) 100 mg PO TID [facility] Enoxaparin Sodium (Lovenox) 40 mg SC DAILY [facility] Last Admin: 01/31/18 11:01 Dose: 40 mg Home Med (Bicalutamide [Casodex]) 50 mg PO DAILY [facility] Home Med (Lubiprostone [Amitiza]) 16 mcg PO DAILY [facility] Home Med (Magnesium Citrate [Magnesium Citrate]) 100 mg PO DAILY [facility] Dextrose/Sodium Chloride (Dextrose 5%/0.45% Ns 1000 Ml) 1,000 mls @ 40 mls/hr IV .Q24H [facility] Stop: 01/31/18 15:14 Last Admin: 01/30/18 16:50 Dose: 40 mls/hr Lactulose (Enulose) 10 gm PO Q6 [facility] Last Admin: 01/31/18 12:07 Dose: 10 gm Memantine (Namenda) 10 mg PO DAILY [facility] Last Admin: 01/31/18 12:01 Dose: 10 mg Multivitamins (Hexavitamin) 1 tab PO DAILY [facility] Last Admin: 01/31/18 11:00 Dose: 1 tab Pantoprazole Sodium (Protonix Inj) 40 mg IVP DAILY [facility] Last Admin: 01/30/18 10:00 Dose: 40 mg Sennosides (Senokot Tab) 8.6 mg PO QPM [facility] Last Admin: 01/30/18 19:03 Dose: 8.6 mg - Labs Labs: 01/31/18 06:22 01/31/18 06:22 PT 16.2 SECONDS (9.7-12.2) H 01/29/18 17:03 INR 1.4 01/29/18 17:03 APTT 30 SECONDS (21-34) 01/29/18 17:03 Attending/Attestation - Attestation I have personally seen and examined this patient.: Yes I have fully participated in the care of the patient.: Yes I have reviewed all pertinent clinical information, including history, physical exam and plan: Yes Notes (Text): 01/31/18 12:51 82 year old male with dementia admitted with constipation. bowel regimen as above. Will sign off.
[2018-01-31] MEDS: Multiple Vitamins Tab PO SCH (11:00)
[2018-01-31] MEDS: Enoxaparin 40 mg Syringe SC SCH (11:01)
--- NOTE | 2018-01-31 12:21 | RAD ---
PROCEDURE: Bone survey HISTORY: lytic lesion noted on CT COMPARISON: CT chest, abdomen and pelvis 01/29/2018 TECHNIQUE: AP and lateral cervical, thoracic and lumbar spine, AP and lateral skull, AP pelvis and AP humerus and femur radiographs are submitted. FINDINGS: Two very small lytic lesions are seen in the right parasagittal calvarium on the AP skull radiograph. Possible arachnoid granulations. No other lytic lesions are identified. There is a vague lytic lesions seen in the posterior aspect of the L2 vertebra on the lateral lumbar spine radiograph corresponding to the morphine lesion identified in the L2 vertebra on CT examination of 01/29/2018. No other lytic or blastic lesion is identified elsewhere throughout the visualized osseous structures. IMPRESSION: Lytic lesion of the L2 vertebra. Two small lytic lesions of the calvarium, questionable significance. Possible arachnoid granulations. No additional abnormality.
--- NOTE | 2018-01-31 14:33 | CARD ---
APPROVED REPORT EXAM: Two-dimensional and M-mode echocardiogram with Doppler and color Doppler. Other Information Quality : GoodRhythm : INDICATION Dyspnea Syncope 2D DIMENSIONS IVSd0.7 (0.7-1.1cm)LVDd3.6 (3.9-5.9cm) LVOT Diameter2.0 (1.8-2.4cm)PWd0.8 (0.7-1.1cm) LVDs2.9 (2.5-4.0cm)FS (%) 18.2 % LVEF (%)50.0 (>50%) M-Mode DIMENSIONS RVDd2.07 (2.1-3.2cm)Left Atrium (MM)1.70 (2.5-4.0cm) IVSd0.81 (0.7-1.1cm)Aortic Root2.99 (2.2-3.7cm) LVDd3.99 (4.0-5.6cm)Aortic Cusp Exc.2.08 (1.5-2.0cm) PWd0.74 (0.7-1.1cm)FS (%) 21 % LVDs3.15 (2.0-3.8cm)LVEF (%)55 (>50%) Aortic Valve AI P 1/2 [id number] Mitral Valve MV E Psmjjrcl89.2cm/sMV A Nzrupzio69.4cm/sE/A ratio0.8 TDI E/Lateral E'0.0E/Medial E'0.0 Tricuspid Valve TR Peak Gzotufxq854pr/sTR Peak Gr.73mpIgJHTH50riHg LEFT VENTRICLE The left ventricle is normal size. There is normal left ventricular wall thickness. The left ventricular function is normal. The left ventricular ejection fraction is within the normal range. No regional wall motion abnormalities noted. Transmitral Doppler flow pattern is Grade I-abnormal relaxation pattern. No left ventricle thrombus noted on this study. There is no ventricular septal defect visualized. There is no left ventricular aneurysm. There is no mass noted in the left ventricle. RIGHT VENTRICLE The right ventricle is normal size. There is normal right ventricular wall thickness. The right ventricular systolic function is normal. ATRIA The left atrium size is normal. The right atrium size is normal. The interatrial septum is intact with no evidence for an atrial septal defect. AORTIC VALVE The aortic valve is moderately to severely sclerotic.,R CORONARY CUSP There is mild aortic regurgitation. There is no aortic valvular stenosis. There is no aortic valvular vegetation. MITRAL VALVE The mitral valve is normal in structure and function. There is no evidence of mitral valve prolapse. There is no mitral valve stenosis. There is no mitral valve regurgitation noted. TRICUSPID VALVE The tricuspid valve is normal in structure and function. There is mild tricuspid regurgitation. Right ventricular systolic pressure is estimated at less than 30 mmHg. There is no tricuspid valve prolapse or vegetation. There is no tricuspid valve stenosis. PULMONIC VALVE The pulmonary valve is normal in structure and function. There is no pulmonic valvular regurgitation. There is no pulmonic valvular stenosis. GREAT VESSELS The aortic root is normal in size. The ascending aorta is normal in size. The pulmonary artery is normal. The IVC is normal in size and collapses >50% with inspiration. PERICARDIAL EFFUSION The pericardium appears normal. There is no pleural effusion. <Conclusion> The left ventricular function is normal. The left ventricular ejection fraction is within the normal range. No regional wall motion abnormalities noted. There is mild aortic regurgitation.
--- NOTE | 2018-01-31 15:48 | CP.PCM.PN ---
Subjective - Date & Time of Evaluation Date of Evaluation: 01/31/18 Time of Evaluation: 15:44 Objective - Vital Signs/Intake and Output Vital Signs (last 24 hours): Temp Pulse Resp BP Pulse Ox 97 F L 82 20 111/65 100 01/31/18 07:00 01/31/18 12:00 01/31/18 07:00 01/31/18 07:00 01/31/18 07:00 Intake and Output: 01/31/18 01/31/18 06:59 18:59 Intake Total 770 Output Total 250 Balance 520 - Medications Medications: Current Medications Docusate Sodium (Colace) 100 mg PO TID [facility] Last Admin: 01/31/18 14:04 Dose: 100 mg Enoxaparin Sodium (Lovenox) 40 mg SC DAILY [facility] Last Admin: 01/31/18 11:01 Dose: 40 mg Home Med (Bicalutamide [Casodex]) 50 mg PO DAILY [facility] Home Med (Lubiprostone [Amitiza]) 16 mcg PO DAILY [facility] Home Med (Magnesium Citrate [Magnesium Citrate]) 100 mg PO DAILY [facility] Lactulose (Enulose) 10 gm PO Q6 [facility] Last Admin: 01/31/18 11:07 Dose: 10 gm Memantine (Namenda) 10 mg PO DAILY [facility] Last Admin: 01/31/18 11:00 Dose: 10 mg Multivitamins (Hexavitamin) 1 tab PO DAILY [facility] Last Admin: 01/31/18 11:00 Dose: 1 tab Pantoprazole Sodium (Protonix Inj) 40 mg IVP DAILY [facility] Last Admin: 01/31/18 11:00 Dose: 40 mg Sennosides (Senokot Tab) 8.6 mg PO QPM [facility] Last Admin: 01/30/18 19:03 Dose: 8.6 mg - Labs Labs: 01/31/18 06:22 01/31/18 06:22 PT 16.2 SECONDS (9.7-12.2) H 01/29/18 17:03 INR 1.4 01/29/18 17:03 APTT 30 SECONDS (21-34) 01/29/18 17:03 Assessment and Plan - Assessment and Plan (Free Text) Assessment: Reported syncope > Further queestioning appears to be acute on chronic lethargy/weakness and fatigue and somnolence. 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 Adenopathy reported neck/mediatinum Lytic lesions T12 Based on the above appears non-cardiac 2D echo images viewed by me on this visit shows LVH, EF 65%, Stage I diastolic dysfunction IVF's
--- NOTE | 2018-01-31 17:29 | CP.PCM.PN ---
Subjective - Date & Time of Evaluation Date of Evaluation: 01/31/18 Time of Evaluation: 10:40 - Subjective Subjective: clinically same Objective - Vital Signs/Intake and Output Vital Signs (last 24 hours): Temp Pulse Resp BP Pulse Ox 97.4 F L 84 20 116/61 100 01/31/18 15:20 01/31/18 15:20 01/31/18 15:20 01/31/18 15:20 01/31/18 15:20 Intake and Output: 01/31/18 01/31/18 06:59 18:59 Intake Total 770 Output Total 250 Balance 520 - Medications Medications: Current Medications Docusate Sodium (Colace) 100 mg PO TID [facility] [place] Last Admin: 01/31/18 14:04 Dose: 100 mg Enoxaparin Sodium (Lovenox) 40 mg SC DAILY [facility] [place] Last Admin: 01/31/18 11:01 Dose: 40 mg Home Med (Bicalutamide [Casodex]) 50 mg PO DAILY [facility] [place] Home Med (Lubiprostone [Amitiza]) 16 mcg PO DAILY [facility] [place] Home Med (Magnesium Citrate [Magnesium Citrate]) 100 mg PO DAILY [facility] [place] Lactulose (Enulose) 10 gm PO Q6 [facility] Last Admin: 01/31/18 11:07 Dose: 10 gm Memantine (Namenda) 10 mg PO DAILY [facility] [place] Last Admin: 01/31/18 11:00 Dose: 10 mg Multivitamins (Hexavitamin) 1 tab PO DAILY [facility] [place] Last Admin: 01/31/18 11:00 Dose: 1 tab Pantoprazole Sodium (Protonix Inj) 40 mg IVP DAILY [facility] [place] Last Admin: 01/31/18 11:00 Dose: 40 mg Sennosides (Senokot Tab) 8.6 mg PO QPM [facility] Last Admin: 01/30/18 19:03 Dose: 8.6 mg - Labs Labs: 01/31/18 06:22 01/31/18 06:22 PT 16.2 SECONDS (9.7-12.2) H 01/29/18 17:03 INR 1.4 01/29/18 17:03 APTT 30 SECONDS (21-34) 01/29/18 17:03 - Constitutional Appears: Well - Head Exam Head Exam: ATRAUMATIC, NORMAL INSPECTION, NORMOCEPHALIC - Eye Exam Eye Exam: EOMI, Normal appearance, PERRL Pupil Exam: NORMAL ACCOMODATION, PERRL - ENT Exam ENT Exam: Mucous Membranes Moist, Normal Exam - Neck Exam Neck Exam: Full ROM, Normal Inspection. absent: Lymphadenopathy - Respiratory Exam Respiratory Exam: Decreased Breath Sounds - Cardiovascular Exam Cardiovascular Exam: REGULAR RHYTHM, +S1, +S2 - GI/Abdominal Exam GI & Abdominal Exam: Soft, Diminished Bowel Sounds - Rectal Exam Rectal Exam: Deferred
[2018-01-31] MEDS ORDERED: Potassium Chloride 20 mEq ER Tab PO STA (19:36)
--- NOTE | 2018-01-31 22:43 | CP.PCM.PN ---
Subjective - Date & Time of Evaluation Date of Evaluation: 01/31/18 Time of Evaluation: 13:00 - Subjective Subjective: Nonverbal, family at bedside Objective - Vital Signs/Intake and Output Vital Signs (last 24 hours): Temp Pulse Resp BP Pulse Ox 99 F 84 20 116/61 100 01/31/18 20:48 01/31/18 15:20 01/31/18 15:20 01/31/18 15:20 01/31/18 15:20 - Medications Medications: Current Medications Docusate Sodium (Colace) 100 mg PO TID [facility] Last Admin: 01/31/18 19:01 Dose: 100 mg Enoxaparin Sodium (Lovenox) 40 mg SC DAILY [facility] Last Admin: 01/31/18 11:01 Dose: 40 mg Home Med (Bicalutamide [Casodex]) 50 mg PO DAILY [facility] Home Med (Lubiprostone [Amitiza]) 16 mcg PO DAILY [facility] Home Med (Magnesium Citrate [Magnesium Citrate]) 100 mg PO DAILY [facility] Lactulose (Enulose) 10 gm PO Q6 [facility] Last Admin: 01/31/18 19:01 Dose: 10 gm Memantine (Namenda) 10 mg PO DAILY [facility] Last Admin: 01/31/18 11:00 Dose: 10 mg Multivitamins (Hexavitamin) 1 tab PO DAILY [facility] Last Admin: 01/31/18 11:00 Dose: 1 tab Pantoprazole Sodium (Protonix Inj) 40 mg IVP DAILY [facility] Last Admin: 01/31/18 11:00 Dose: 40 mg Sennosides (Senokot Tab) 8.6 mg PO QPM [facility] Last Admin: 01/31/18 19:01 Dose: 8.6 mg - Labs Labs: 01/31/18 06:22 01/31/18 06:22 PT 16.2 SECONDS (9.7-12.2) H 01/29/18 17:03 INR 1.4 01/29/18 17:03 APTT 30 SECONDS (21-34) 01/29/18 17:03 - Head Exam Head Exam: ATRAUMATIC - Eye Exam Eye Exam: Normal appearance - ENT Exam ENT Exam: Mucous Membranes Dry - Respiratory Exam Respiratory Exam: NORMAL BREATHING PATTERN - Cardiovascular Exam Cardiovascular Exam: +S1, +S2 - GI/Abdominal Exam GI & Abdominal Exam: Normal Bowel Sounds Assessment and Plan (1) Bone lesion Assessment & Plan: subtle calvarial lytic lesions noted on skeletal survey ? multiple myeloma; f/u monoclonal protein w/u Status: Acute (2) Lymphadenopathy Assessment & Plan: ?malignancy Status: Acute (3) Anemia Assessment & Plan: work up consistent with chronic disease Status: Acute
[2018-02-01] MEDS: Multiple Vitamins Tab PO SCH (10:45)
[2018-02-01] MEDS: Enoxaparin 40 mg Syringe SC SCH (10:45)
--- NOTE | 2018-02-01 12:46 | CP.PCM.PN ---
Subjective - Date & Time of Evaluation Date of Evaluation: 02/01/18 Time of Evaluation: 08:40 - Subjective Subjective: clinically same Objective - Vital Signs/Intake and Output Vital Signs (last 24 hours): Temp Pulse Resp BP Pulse Ox 97.8 F 83 18 127/65 100 02/01/18 07:10 02/01/18 07:10 02/01/18 07:10 02/01/18 07:10 02/01/18 07:10 Intake and Output: 02/01/18 02/01/18 06:59 18:59 Intake Total 470 Output Total 350 Balance 120 - Medications Medications: Current Medications Docusate Sodium (Colace) 100 mg PO TID [facility] Last Admin: 02/01/18 10:45 Dose: 100 mg Enoxaparin Sodium (Lovenox) 40 mg SC DAILY [facility] Last Admin: 02/01/18 10:45 Dose: 40 mg Home Med (Bicalutamide [Casodex]) 50 mg PO DAILY [facility] Home Med (Lubiprostone [Amitiza]) 16 mcg PO DAILY [facility] Lactulose (Enulose) 10 gm PO Q6 [facility] Last Admin: 02/01/18 11:27 Dose: 10 gm Memantine (Namenda) 10 mg PO DAILY [facility] Last Admin: 02/01/18 10:45 Dose: 10 mg Multivitamins (Hexavitamin) 1 tab PO DAILY [facility] Last Admin: 02/01/18 10:45 Dose: 1 tab Pantoprazole Sodium (Protonix Inj) 40 mg IVP DAILY [facility] Last Admin: 02/01/18 10:45 Dose: 40 mg Sennosides (Senokot Tab) 8.6 mg PO QPM [facility] Last Admin: 01/31/18 19:01 Dose: 8.6 mg - Labs Labs: 01/31/18 06:22 01/31/18 06:22 PT 16.2 SECONDS (9.7-12.2) H 01/29/18 17:03 INR 1.4 01/29/18 17:03 APTT 30 SECONDS (21-34) 01/29/18 17:03 - Constitutional Appears: Well - Head Exam Head Exam: ATRAUMATIC, NORMAL INSPECTION, NORMOCEPHALIC - Eye Exam Eye Exam: EOMI, Normal appearance, PERRL Pupil Exam: NORMAL ACCOMODATION, PERRL - ENT Exam ENT Exam: Mucous Membranes Moist, Normal Exam - Neck Exam Neck Exam: Full ROM, Normal Inspection. absent: Lymphadenopathy - Respiratory Exam Respiratory Exam: Decreased Breath Sounds - Cardiovascular Exam Cardiovascular Exam: REGULAR RHYTHM, +S1, +S2 - GI/Abdominal Exam GI & Abdominal Exam: Soft, Diminished Bowel Sounds - Rectal Exam Rectal Exam: Deferred Assessment and Plan (1) Anemia Status: Acute (2) Bone lesion Status: Acute (3) Leukocytosis Status: Acute (4) Lymphadenopathy Status: Acute (5) Constipation Status: Acute (6) Obstipation Status: Acute - Assessment and Plan (Free Text) Plan: Workup for lytic lesion on the back status post skeletal bone survey Status post a hematology consultation Continue same Patient has a mediastinal mass discussed with the daughter who does not want to do the workup as patient cannot get a chemotherapy and the family will not allow him to get a chemotherapy family understands the consent spoke to both the daughters As ordered Discussed with also steel plate caulker
--- NOTE | 2018-02-01 20:45 | CP.PCM.PN ---
Subjective - Date & Time of Evaluation Date of Evaluation: 02/01/18 Time of Evaluation: 17:10 - Subjective Subjective: Appears more awake, daughter at bedside Objective - Vital Signs/Intake and Output Vital Signs (last 24 hours): Temp Pulse Resp BP Pulse Ox 98.9 F 87 18 128/68 99 02/01/18 15:40 02/01/18 15:40 02/01/18 15:40 02/01/18 15:40 02/01/18 15:40 - Medications Medications: Current Medications Docusate Sodium (Colace) 100 mg PO TID [facility] Last Admin: 02/01/18 17:31 Dose: 100 mg Enoxaparin Sodium (Lovenox) 40 mg SC DAILY [facility] Last Admin: 02/01/18 10:45 Dose: 40 mg Home Med (Bicalutamide [Casodex]) 50 mg PO DAILY [facility] Home Med (Lubiprostone [Amitiza]) 16 mcg PO DAILY [facility] Lactulose (Enulose) 10 gm PO Q6 [facility] Last Admin: 02/01/18 17:31 Dose: 10 gm Memantine (Namenda) 10 mg PO DAILY [facility] Last Admin: 02/01/18 10:45 Dose: 10 mg Multivitamins (Hexavitamin) 1 tab PO DAILY [facility] Last Admin: 02/01/18 10:45 Dose: 1 tab Pantoprazole Sodium (Protonix Inj) 40 mg IVP DAILY [facility] Last Admin: 02/01/18 10:45 Dose: 40 mg Sennosides (Senokot Tab) 8.6 mg PO QPM [facility] Last Admin: 02/01/18 17:31 Dose: 8.6 mg - Labs Labs: 01/31/18 06:22 01/31/18 06:22 PT 16.2 SECONDS (9.7-12.2) H 01/29/18 17:03 INR 1.4 01/29/18 17:03 APTT 30 SECONDS (21-34) 01/29/18 17:03 - Head Exam Head Exam: ATRAUMATIC - Eye Exam Eye Exam: Normal appearance - ENT Exam ENT Exam: Mucous Membranes Dry - Respiratory Exam Respiratory Exam: NORMAL BREATHING PATTERN - Cardiovascular Exam Cardiovascular Exam: +S1, +S2 - GI/Abdominal Exam GI & Abdominal Exam: Normal Bowel Sounds Assessment and Plan (1) Bone lesion Assessment & Plan: lytic lesions noted by skeletal survey ? multiple myeloma; f/u monoclonal protein w/u appearance not typical of prostate cancer mets despite elevated PSA Status: Acute (2) Lymphadenopathy Assessment & Plan: ? malignancy related Status: Acute (3) Anemia Assessment & Plan: chronic disease Status: Acute
[2018-02-02] MEDS: Enoxaparin 40 mg Syringe SC SCH (09:19)
[2018-02-02] MEDS: Multiple Vitamins Tab PO SCH (09:19)
[2018-02-02] MEDS ORDERED: Potassium Chloride 20 mEq ER Tab PO STA (16:42)
--- NOTE | 2018-02-02 17:18 | CP.PCM.PN ---
Subjective - Date & Time of Evaluation Date of Evaluation: 02/02/18 Time of Evaluation: 09:00 - Subjective Subjective: clinically same Objective - Vital Signs/Intake and Output Vital Signs (last 24 hours): Temp Pulse Resp BP Pulse Ox 98.9 F 97 H 18 133/72 98 02/02/18 15:58 02/02/18 15:58 02/02/18 15:58 02/02/18 15:58 02/02/18 15:58 Intake and Output: 02/02/18 02/02/18 06:59 18:59 Intake Total 120 150 Output Total 300 Balance 120 -150 - Medications Medications: Current Medications Docusate Sodium (Colace) 100 mg PO TID [facility] Last Admin: 02/02/18 13:01 Dose: 100 mg Enoxaparin Sodium (Lovenox) 40 mg SC DAILY [facility] Last Admin: 02/02/18 09:19 Dose: 40 mg Home Med (Bicalutamide [Casodex]) 50 mg PO DAILY [facility] Home Med (Lubiprostone [Amitiza]) 16 mcg PO DAILY [facility] Lactulose (Enulose) 10 gm PO Q6 [facility] Last Admin: 02/02/18 12:32 Dose: 10 gm Memantine (Namenda) 10 mg PO DAILY [facility] Last Admin: 02/02/18 09:19 Dose: 10 mg Multivitamins (Hexavitamin) 1 tab PO DAILY [facility] Last Admin: 02/02/18 09:19 Dose: 1 tab Pantoprazole Sodium (Protonix Inj) 40 mg IVP DAILY [facility] Last Admin: 02/02/18 09:19 Dose: 40 mg Sennosides (Senokot Tab) 8.6 mg PO QPM [facility] Last Admin: 02/01/18 17:31 Dose: 8.6 mg - Labs Labs: 01/31/18 06:22 01/31/18 06:22 PT 16.2 SECONDS (9.7-12.2) H 01/29/18 17:03 INR 1.4 01/29/18 17:03 APTT 30 SECONDS (21-34) 01/29/18 17:03 - Constitutional Appears: Well - Head Exam Head Exam: ATRAUMATIC, NORMAL INSPECTION, NORMOCEPHALIC - Eye Exam Eye Exam: EOMI, Normal appearance, PERRL Pupil Exam: NORMAL ACCOMODATION, PERRL - ENT Exam ENT Exam: Mucous Membranes Moist, Normal Exam - Neck Exam Neck Exam: Full ROM, Normal Inspection. absent: Lymphadenopathy - Respiratory Exam Respiratory Exam: Decreased Breath Sounds - Cardiovascular Exam Cardiovascular Exam: REGULAR RHYTHM, +S1, +S2 - GI/Abdominal Exam GI & Abdominal Exam: Soft, Diminished Bowel Sounds - Rectal Exam Rectal Exam: Deferred Assessment and Plan (1) Anemia Status: Acute (2) Bone lesion Status: Acute (3) Leukocytosis Status: Acute (4) Lymphadenopathy Status: Acute (5) Constipation Status: Acute (6) Obstipation Status: Acute
[2018-02-03 07:06] LABS: BASO # 0.2 K/uL (0.0-0.2); EOS % 0.3 % (0.0-4.0); LYMPH # 1.3 K/uL (1.0-4.3); LYMPH % 8.1 % (20.0-40.0); MEAN CELL VOLUME 85.8 fL (80.0-94.0); MEAN CORPUSCULAR HEMOGLOBIN 28.4 pg (27.0-31.0); MEAN CORPUSCULAR HGB CONC 33.1 g/dL (33.0-37.0); MEAN PLATELET VOLUME 7.2 fL (7.2-11.7); MONO # 2.1 K/uL (0.0-0.8); MONO % 13.6 % (0.0-10.0); PLATELET COUNT 503 K/uL (130-400); RBC 3.17 Mil/uL (4.40-5.90); WHITE BLOOD COUNT 15.6 K/uL (4.8-10.8)
[2018-02-03 07:37] LABS: ALB/GLOB RATIO 0.5 (1.0-2.1); ALBUMIN 2.8 g/dL (3.5-5.0); ALT/SGPT 30 U/L (21-72); AST/SGOT 34 U/L (17-59); BLOOD UREA NITROGEN 10 mg/dL (9-20); CALCIUM 9.3 mg/dl (8.6-10.4); GFR AFRICAN-AMERICAN > 60; GFR NON-AFRICAN AMERICAN > 60
[2018-02-03 08:04] LABS: ALBUMIN (PEP) 1.7 g/dL (3.8-4.8); ALPHA-1-GLOBULIN (PEP) 0.7 g/dL (0.2-0.3)
[2018-02-03 08:40] LABS: LYMPHOCYTE 7 % (20-40); MONOCYTE 14 % (0-10); NEUTROPHIL 79 % (50-75); TOTAL CELLS COUNTED 100
[2018-02-03 08:41] LABS: PLATELET ESTIMATE INCREASED (NORMAL)
[2018-02-03 08:42] LABS: ANISOCYTOSIS SLIGHT
[2018-02-03] MEDS: Multiple Vitamins Tab PO SCH (09:20)
[2018-02-03] MEDS: Enoxaparin 40 mg Syringe SC SCH (09:20)
--- NOTE | 2018-02-03 11:06 | CP.PCM.PN ---
Subjective - Date & Time of Evaluation Date of Evaluation: 02/03/18 Time of Evaluation: 11:06 - Subjective Subjective: Medicine progress note for Dr. Diaz's service Patient seen and examined. Patient is non-verbal. No acute events reports per nursing. Patient normally eats well with assistance, however today patient refused breakfast. Patient remains afebrile. Patient is having bowel movements per nursing. Objective - Vital Signs/Intake and Output Vital Signs (last 24 hours): Temp Pulse Resp BP Pulse Ox 98.0 F 83 18 107/60 97 02/03/18 07:10 02/03/18 07:10 02/03/18 07:10 02/03/18 07:10 02/03/18 07:10 Intake and Output: 02/03/18 02/03/18 06:59 18:59 Intake Total 600 Output Total 975 Balance -375 - Medications Medications: Current Medications Docusate Sodium (Colace) 100 mg PO TID [facility] Last Admin: 02/03/18 09:20 Dose: 100 mg Enoxaparin Sodium (Lovenox) 40 mg SC DAILY [facility] Last Admin: 02/03/18 09:20 Dose: 40 mg Home Med (Bicalutamide [Casodex]) 50 mg PO DAILY [facility] Home Med (Lubiprostone [Amitiza]) 16 mcg PO DAILY [facility] Lactulose (Enulose) 10 gm PO Q6 [facility] Last Admin: 02/03/18 05:36 Dose: 10 gm Memantine (Namenda) 10 mg PO DAILY [facility] Last Admin: 02/03/18 09:20 Dose: 10 mg Multivitamins (Hexavitamin) 1 tab PO DAILY [facility] Last Admin: 02/03/18 09:20 Dose: 1 tab Pantoprazole Sodium (Protonix Inj) 40 mg IVP DAILY [facility] Last Admin: 02/03/18 09:20 Dose: 40 mg Sennosides (Senokot Tab) 8.6 mg PO QPM [facility] Last Admin: 02/02/18 17:44 Dose: 8.6 mg - Labs Labs: 02/03/18 06:54 02/03/18 06:54 PT 16.2 SECONDS (9.7-12.2) H 01/29/18 17:03 INR 1.4 01/29/18 17:03 APTT 30 SECONDS (21-34) 01/29/18 17:03 - Constitutional Appears: No Acute Distress, Cachectic, Chronically Ill - Head Exam Head Exam: ATRAUMATIC, NORMOCEPHALIC - Eye Exam Eye Exam: EOMI - ENT Exam ENT Exam: Mucous Membranes Dry - Neck Exam Neck Exam: Lymphadenopathy - Respiratory Exam Respiratory Exam: Clear to Ausculation Bilateral - Cardiovascular Exam Cardiovascular Exam: +S1, +S2 - GI/Abdominal Exam GI & Abdominal Exam: Soft, Normal Bowel Sounds. absent: Tenderness - Extremities Exam Extremities Exam: Normal Inspection - Neurological Exam Neurological Exam: Awake - Skin Skin Exam: Warm Assessment and Plan - Assessment and Plan (Free Text) Assessment: 1. Proctitis leukocytosis noted with WBC 15.6 patient afebrile repeat blood and urine cultures 02/03/18: start cipro 400 q12h, flagyl 500mg q8h Dr. Haile, ID, consulted- help appreciated 2. Lytic lesion CT: L2 lytic lesion, fecal impaction with stercoral proctitis, adenopathy in mediastinum and left neck bone scan: L2 lytic lesion, [address] Milian, heme-onc, consulted- help appreciated globulin 5.7, high monoclonal work up pending KATERINA & SPEP shows chronic inflammatory pattern 3. Constipation continue senokot 8.6mg PO QPM colace 100mg PO TID lactulose 10g PO Q6h 4. Syncope report of syncope at half-way, that lasted for 10 seconds Cardio, Dr. Soler consulted- help appreciated more likely chronic lethargy/ fatigue Per Dr. Arreola: 2D echo images viewed by me on this visit shows LVH, EF 65%, Stage I diastolic dysfunction 5. Alzheimer's dementia continue namenda 10mg PO daily 6. History Prostate cancer patient's home medication bicalutamide non-formulary PSA 12.6 7. Prophylactic measure protonix 40mg IVP daily lovenox 40mg SC daily All medical management as per Dr. Diaz
--- NOTE | 2018-02-03 12:57 | CP.PCM.PN ---
Subjective - Date & Time of Evaluation Date of Evaluation: 02/03/18 Time of Evaluation: 09:40 - Subjective Subjective: clinically same Objective - Vital Signs/Intake and Output Vital Signs (last 24 hours): Temp Pulse Resp BP Pulse Ox 98.0 F 83 18 107/60 97 02/03/18 07:10 02/03/18 07:10 02/03/18 07:10 02/03/18 07:10 02/03/18 07:10 Intake and Output: 02/03/18 02/03/18 06:59 18:59 Intake Total 600 Output Total 975 Balance -375 - Medications Medications: Current Medications Docusate Sodium (Colace) 100 mg PO TID [facility] Last Admin: 02/03/18 09:20 Dose: 100 mg Enoxaparin Sodium (Lovenox) 40 mg SC DAILY [facility] Last Admin: 02/03/18 09:20 Dose: 40 mg Home Med (Bicalutamide [Casodex]) 50 mg PO DAILY [facility] Home Med (Lubiprostone [Amitiza]) 16 mcg PO DAILY [facility] Lactulose (Enulose) 10 gm PO Q6 [facility] Last Admin: 02/03/18 05:36 Dose: 10 gm Memantine (Namenda) 10 mg PO DAILY [facility] Last Admin: 02/03/18 09:20 Dose: 10 mg Multivitamins (Hexavitamin) 1 tab PO DAILY [facility] Last Admin: 02/03/18 09:20 Dose: 1 tab Pantoprazole Sodium (Protonix Inj) 40 mg IVP DAILY [facility] Last Admin: 02/03/18 09:20 Dose: 40 mg Sennosides (Senokot Tab) 8.6 mg PO QPM [facility] Last Admin: 02/02/18 17:44 Dose: 8.6 mg - Labs Labs: 02/03/18 06:54 02/03/18 06:54 PT 16.2 SECONDS (9.7-12.2) H 01/29/18 17:03 INR 1.4 01/29/18 17:03 APTT 30 SECONDS (21-34) 01/29/18 17:03 - Constitutional Appears: Well - Head Exam Head Exam: ATRAUMATIC, NORMAL INSPECTION, NORMOCEPHALIC - Eye Exam Eye Exam: EOMI, Normal appearance, PERRL Pupil Exam: NORMAL ACCOMODATION, PERRL - ENT Exam ENT Exam: Mucous Membranes Moist, Normal Exam - Neck Exam Neck Exam: Full ROM, Normal Inspection. absent: Lymphadenopathy - Respiratory Exam Respiratory Exam: Decreased Breath Sounds - Cardiovascular Exam Cardiovascular Exam: REGULAR RHYTHM, +S1, +S2 - GI/Abdominal Exam GI & Abdominal Exam: Soft, Diminished Bowel Sounds - Rectal Exam Rectal Exam: Deferred Assessment and Plan (1) Anemia Status: Acute (2) Bone lesion Status: Acute (3) Leukocytosis Status: Acute (4) Lymphadenopathy Status: Acute (5) Constipation Status: Acute (6) Obstipation Status: Acute
[2018-02-03] MEDS: Ciprofloxacin 400mg/200ml D5W 400 MG/200 ML BAG IVPB SCH (15:22)
[2018-02-03 15:58] VITALS: RESP 20
--- NOTE | 2018-02-03 19:55 | CP.PCM.PN ---
Subjective - Date & Time of Evaluation Date of Evaluation: 02/03/18 Time of Evaluation: 19:30 - Subjective Subjective: Appears comfortable Objective - Vital Signs/Intake and Output Vital Signs (last 24 hours): Temp Pulse Resp BP Pulse Ox 97.7 F 94 H 20 134/65 97 02/03/18 15:00 02/03/18 15:00 02/03/18 15:00 02/03/18 15:00 02/03/18 15:00 Intake and Output: 02/03/18 02/04/18 18:59 06:59 Intake Total 320 Output Total 400 Balance -80 - Medications Medications: Current Medications Docusate Sodium (Colace) 100 mg PO TID [facility] Last Admin: 02/03/18 18:22 Dose: 100 mg Enoxaparin Sodium (Lovenox) 40 mg SC DAILY [facility] Last Admin: 02/03/18 09:20 Dose: 40 mg Home Med (Bicalutamide [Casodex]) 50 mg PO DAILY [facility] Home Med (Lubiprostone [Amitiza]) 16 mcg PO DAILY [facility] Ciprofloxacin (Cipro 400mg/200ml Dsw) 400 mg in 200 mls @ 133 mls/hr IVPB Q12H [facility] PRN Reason: Protocol Last Admin: 02/03/18 15:22 Dose: 133 mls/hr Metronidazole (Flagyl) 500 mg in 100 mls @ 100 mls/hr IVPB Q8 [facility] PRN Reason: Protocol Lactulose (Enulose) 10 gm PO Q6 [facility] Last Admin: 02/03/18 18:22 Dose: 10 gm Memantine (Namenda) 10 mg PO DAILY [facility] Last Admin: 02/03/18 09:20 Dose: 10 mg Multivitamins (Hexavitamin) 1 tab PO DAILY [facility] Last Admin: 02/03/18 09:20 Dose: 1 tab Pantoprazole Sodium (Protonix Inj) 40 mg IVP DAILY [facility] Last Admin: 02/03/18 09:20 Dose: 40 mg Sennosides (Senokot Tab) 8.6 mg PO QPM [facility] Last Admin: 02/03/18 18:22 Dose: 8.6 mg - Labs Labs: 02/03/18 06:54 02/03/18 06:54 PT 16.2 SECONDS (9.7-12.2) H 03/28/18 17:03 INR 1.4 01/29/18 17:03 APTT 30 SECONDS (21-34) 01/29/18 17:03 - Head Exam Head Exam: ATRAUMATIC - Eye Exam Eye Exam: Normal appearance - ENT Exam ENT Exam: Mucous Membranes Dry - Respiratory Exam Respiratory Exam: NORMAL BREATHING PATTERN - Cardiovascular Exam Cardiovascular Exam: +S1, +S2 - GI/Abdominal Exam GI & Abdominal Exam: Normal Bowel Sounds Assessment and Plan (1) Bone lesion Assessment & Plan: lytic lesions noted by skeletal survey monoclonal protein w/u negative appearance not typical of prostate cancer mets despite elevated PSA Status: Acute (2) Lymphadenopathy Assessment & Plan: ? malignancy related Status: Acute (3) Anemia Assessment & Plan: chronic disease Status: Acute
[2018-02-03] MEDS: metroNIDAZOLE IV 500 mg/100 ml 500 MG/100 ML BAG IVPB SCH (21:09)
--- NOTE | 2018-02-03 21:34 | CP.PCM.CON ---
History of Present Illness - History of Present Illness History of Present Illness: INFECTIOUS DISEASE CONSULT; HPI; Manuel Belle is a 82M with a hx of alzheimers who [facility]. Pt is awakw but essentially non- verbal. All information obtained is from the RN and EMR. Pt has had multiple ER visit for similar issues of obstipation, constipation, and impactions. He was last seen at [facility] in 11/2017 for similar complaints. He had a CT which revealed significant stool burden and possible rectal impaction with stercoral ulcer/proctitis . Pt had no significant events since being admitted. Nursing denies any rectal bleeding, melena, or diarrhea. INFECTIOUS DISEASE CONSULTATION REQUESTED BY DR Sharee CASTELAN (PMD ) FOR INCREASING LEUKOCYTOSIS. PATIENT HAS HISTORY OF PROSTATE CA AND CAT SCAN OF THE CHEST, ABDOMEN/PELVIS WITH iv CONTRASTCONSISTENT WITH OLD GRANULOMATOUS LUNG DISEASE WITH ADENOPATHY WITHIN THE MEDIASTINUM AND LEFT SIDE OF THE NECK. mILD CENTRILOBULAR EMPHYSEMA AND A LYTIC LESION IN THE SKULL AND l2. PATIENT PRESENTLY STARTED ON iv CIPRO AND iv fLAGYL TODAY REPORTED. ROS: could not be assessed PMHx: alzheimers (as per EMR),HX PROSTATE CA. Surgery: cataracts (as per EMR) Social hx: could not obtain Family Hx: could not obtain Endo hx: unknown. ALLERGIES; NKA. Past Patient History - Infectious Disease Hx of Infectious Diseases: None - Past Medical History & Family History Past Medical History?: Yes - Past Social History Smoking Status: Never Smoked - CARDIAC Hx Cardiac Disorders: Yes Hx Hypercholesterolemia: Yes - PULMONARY Hx Respiratory Disorders: No - NEUROLOGICAL Hx Alzheimer's Disease: Yes - HEENT Hx HEENT Problems: Yes Hx Cataracts: Yes - RENAL Hx Chronic Kidney Disease: No - ENDOCRINE/METABOLIC Hx Endocrine Disorders: No - HEMATOLOGICAL/ONCOLOGICAL Hx Blood Disorders: Yes Hx Anemia: Yes - INTEGUMENTARY Hx Dermatological Problems: No - MUSCULOSKELETAL/RHEUMATOLOGICAL Hx Musculoskeletal Disorders: Yes Hx Arthritis: Yes Hx Back Pain: Yes Hx Falls: Yes - GASTROINTESTINAL Hx Gastrointestinal Disorders: Yes Hx Constipation: Yes (with impaction) - GENITOURINARY/GYNECOLOGICAL Hx Genitourinary Disorders: Yes Hx Prostate Cancer: Yes Hx Prostate Problems: Yes - PSYCHIATRIC Hx Substance Use: No - SURGICAL HISTORY Hx Appendectomy: Yes - ANESTHESIA Hx Anesthesia: Yes Hx Anesthesia Reactions: No Hx Malignant Hyperthermia: No Meds Allergies/Adverse Reactions: Allergies Allergy/AdvReac Type Severity Reaction Status Date / Time No Known Allergies Allergy Verified 01/29/18 15:22 - Medications Medications: Current Medications Docusate Sodium (Colace) 100 mg PO TID [facility] Last Admin: 02/03/18 18:22 Dose: 100 mg Enoxaparin Sodium (Lovenox) 40 mg SC DAILY [facility] Last Admin: 02/03/18 09:20 Dose: 40 mg Home Med (Bicalutamide [Casodex]) 50 mg PO DAILY [facility] Home Med (Lubiprostone [Amitiza]) 16 mcg PO DAILY [facility] Ciprofloxacin (Cipro 400mg/200ml Dsw) 400 mg in 200 mls @ 133 mls/hr IVPB Q12H [facility] PRN Reason: Protocol Last Admin: 02/03/18 15:22 Dose: 133 mls/hr Metronidazole (Flagyl) 500 mg in 100 mls @ 100 mls/hr IVPB Q8 [facility] PRN Reason: Protocol Last Admin: 02/03/18 21:09 Dose: 100 mls/hr Lactulose (Enulose) 10 gm PO Q6 [facility] Last Admin: 02/03/18 18:22 Dose: 10 gm Memantine (Namenda) 10 mg PO DAILY [facility] Last Admin: 02/03/18 09:20 Dose: 10 mg Multivitamins (Hexavitamin) 1 tab PO DAILY [facility] Last Admin: 02/03/18 09:20 Dose: 1 tab Pantoprazole Sodium (Protonix Inj) 40 mg IVP DAILY [facility] Last Admin: 02/03/18 09:20 Dose: 40 mg Sennosides (Senokot Tab) 8.6 mg PO QPM [facility] Last Admin: 02/03/18 18:22 Dose: 8.6 mg Physical Exam - Constitutional Appears: No Acute Distress, Confused, Cachectic, Chronically Ill - Head Exam Head Exam: NORMAL INSPECTION - Eye Exam Eye Exam: EOMI, PERRL - ENT Exam ENT Exam: Mucous Membranes Dry - Neck Exam Neck exam: Positive for: Normal Inspection - Respiratory Exam Respiratory Exam: Clear to Auscultation Bilateral - Cardiovascular Exam Cardiovascular Exam: Tachycardia, REGULAR RHYTHM, +S1, +S2 - GI/Abdominal Exam GI & Abdominal Exam: Normal Bowel Sounds, Soft - Rectal Exam Rectal Exam: absent: Deferred - Extremities Exam Extremities exam: Negative for: calf tenderness, pedal edema (BILATERAL vENODYNE PRESENT) - Neurological Exam Neurological exam: Altered - Psychiatric Exam Psychiatric exam: Flat Affect - Skin Skin Exam: Pallor, Warm Results - Vital Signs Recent Vital Signs: Last Vital Signs Temp 97.7 F 02/03/18 15:00 Pulse 94 H 02/03/18 15:00 Resp 20 02/03/18 15:00 BP 134/65 02/03/18 15:00 Pulse Ox 97 02/03/18 15:00 - Labs Result Diagrams: 02/03/18 06:54 02/03/18 06:54 Labs: Laboratory Results - last 24 hr 01/30/18 01/31/18 02/03/18 07:07 06:22 06:54 WBC 15.6 H RBC 3.17 L Hgb 9.0 L Hct 27.2 L MCV 85.8 MCH 28.4 MCHC 33.1 RDW 16.0 H Plt Count 503 H MPV 7.2 Neut % (Auto) 77.0 H Lymph % (Auto) 8.1 L [place] % (Auto) 13.6 H Eos % (Auto) 0.3 Baso % (Auto) 1.0 Neut # (Auto) 12.0 H Lymph # (Auto) 1.3 [place] # (Auto) 2.1 H Eos # (Auto) 0.0 Baso # (Auto) 0.2 Neutrophils % (Manual) 79 H Lymphocytes % (Manual) 7 L Monocytes % (Manual) 14 H Platelet Estimate Increased H Anisocytosis (manual) Slight Sodium Potassium Chloride Carbon Dioxide Anion Gap BUN Creatinine Est GFR ( Amer) Est GFR (Non-Af Amer) Random Glucose Calcium Total Bilirubin AST ALT Alkaline Phosphatase Total Protein Albumin Albumin (PEP) 1.7 L Globulin Albumin/Globulin Ratio Nclfn-3-Cgawuwrej 0.7 H Kzjqv-1-Ralbrelsd 1.5 H Bbrw-5-Uocelazb 0.3 L Hhix-2-Kdpnqabh 0.7 H Gamma Globulins 2.7 H Abnorm Protein Band 1 TEST NOT PERFORMED Abnorm Protein Band 2 TEST NOT PERFORMED Abnorm Protein Band 3 TEST NOT PERFORMED KATERINA & SPEP Interp See note Serum Immunofixation Not detected [place]/Lambda Light Chain Free [place] Light Chains 125.4 H Free Lambda Light Chain 96.8 H Free [place]/Lambda Ratio 1.30 02/03/18 06:54 WBC RBC Hgb Hct MCV MCH MCHC RDW Plt Count MPV Neut % (Auto) Lymph % (Auto) [place] % (Auto) Eos % (Auto) Baso % (Auto) Neut # (Auto) Lymph # (Auto) [place] # (Auto) Eos # (Auto) Baso # (Auto) Neutrophils % (Manual) Lymphocytes % (Manual) Monocytes % (Manual) Platelet Estimate Anisocytosis (manual) Sodium 143 Potassium 4.6 Chloride 97 L Carbon Dioxide 29 Anion Gap 21 H BUN 10 Creatinine 0.7 L Est GFR ( Amer) > 60 Est GFR (Non-Af Amer) > 60 Random Glucose 128 H Calcium 9.3 Total Bilirubin 0.3 AST 34 ALT 30 Alkaline Phosphatase 236 H Total Protein 8.5 H Albumin 2.8 L Albumin (PEP) Globulin 5.7 H Albumin/Globulin Ratio 0.5 L Qcfeu-6-Ygskuaflw Dhojo-9-Pptyntzvw Etwo-0-Woqppybs Dczj-6-Zfrarsbm Gamma Globulins Abnorm Protein Band 1 Abnorm Protein Band 2 Abnorm Protein Band 3 KATERINA & SPEP Interp Serum Immunofixation [place]/Lambda Light Chain Free [place] Light Chains Free Lambda Light Chain Free [place]/Lambda Ratio - Imaging and Cardiology CT scan - chest/ABD/PELVIS C IV CONTRAST Status: Report reviewed by me Assessment & Plan (1) Leukocytosis Assessment and Plan: SOURCE OF LEUKOCYTOSIS AND SEPSIS NOT CLEAR. ? PROCTITIS/ IMPACTION. ? PROSTATITIS . ? MALIGNANCY W METASTASIS. ONCOLOGY W/U IN PROGRESS. CONTINUE IV ABX DISCUSSED. 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 CONTINUE IV CIPRO 400MG IV Q12 HRLY 02/03/18 CONTINUE IV FLAGYL 500MG IVPB Q 8HRLY.02/03/18. F/U CULTURES TO ADJUST ABX. PT UNDERGOING W/U FOR SYNCOPE HEM/ONCOLOGY ON BOARD. CASE DISCUSSED WITH RESIDENT DR ONEIL.
[2018-02-04] MEDS: Ciprofloxacin 400mg/200ml D5W 400 MG/200 ML BAG IVPB SCH ×2 (02:46→14:07)
[2018-02-04] MEDS: metroNIDAZOLE IV 500 mg/100 ml 500 MG/100 ML BAG IVPB SCH ×3 (05:53→21:22)
[2018-02-04 06:53] LABS: BASO # 0.1 K/uL (0.0-0.2); BASO % 0.4 % (0.0-2.0); EOS % 0.2 % (0.0-4.0); HEMOGLOBIN 8.9 g/dL (12.0-18.0); LYMPH # 1.4 K/uL (1.0-4.3); LYMPH % 7.2 % (20.0-40.0); MEAN CORPUSCULAR HEMOGLOBIN 28.4 pg (27.0-31.0); MEAN CORPUSCULAR HGB CONC 33.4 g/dL (33.0-37.0); MONO % 10.5 % (0.0-10.0); NEUT # 15.9 K/uL (1.8-7.0); NEUT % 81.7 % (50.0-75.0); PLATELET COUNT 528 K/uL (130-400); RBC 3.15 Mil/uL (4.40-5.90); RED CELL DISTRIBUTION WIDTH 16.1 % (11.5-14.5); WHITE BLOOD COUNT 19.4 K/uL (4.8-10.8)
[2018-02-04 07:53] LABS: ALB/GLOB RATIO 0.5 (1.0-2.1); ALBUMIN 2.9 g/dL (3.5-5.0); ALT/SGPT 26 U/L (21-72); AST/SGOT 34 U/L (17-59); BLOOD UREA NITROGEN 14 mg/dL (9-20); CALCIUM 9.1 mg/dl (8.6-10.4); GFR AFRICAN-AMERICAN > 60; GFR NON-AFRICAN AMERICAN > 60
[2018-02-04 08:30] LABS: BANDS 3 % (0-2); LYMPHOCYTE 6 % (20-40); METAMYELOCYTE 1 % (0-0); MONOCYTE 6 % (0-10); NEUTROPHIL 83 % (50-75); PLATELET ESTIMATE INCREASED (NORMAL); REACTIVE LYMPHOCYTES 1 % (0-0); TOTAL CELLS COUNTED 100
[2018-02-04 08:31] LABS: ANISOCYTOSIS SLIGHT; HYPOCHROMIC SLIGHT; TOXIC GRANULATION PRESENT
--- NOTE | 2018-02-04 09:27 | CP.PCM.PN ---
Subjective - Date & Time of Evaluation Date of Evaluation: 02/04/18 Time of Evaluation: 09:27 - Subjective Subjective: Progress Note for Dr. Diaz's Service Pt seen and examined at bedside. Baseline non-verbal. No acute events reported overnight as per nursing. Objective - Vital Signs/Intake and Output Vital Signs (last 24 hours): Temp Pulse Resp BP Pulse Ox 97.7 F 92 H 20 126/66 100 02/04/18 07:54 02/04/18 07:54 02/04/18 07:54 02/04/18 07:54 02/04/18 07:54 Intake and Output: 02/04/18 02/04/18 06:59 18:59 Intake Total 600 Output Total 800 Balance -200 - Medications Medications: Current Medications Docusate Sodium (Colace) 100 mg PO TID [facility] Last Admin: 02/03/18 18:22 Dose: 100 mg Enoxaparin Sodium (Lovenox) 40 mg SC DAILY [facility] Last Admin: 02/03/18 09:20 Dose: 40 mg Home Med (Bicalutamide [Casodex]) 50 mg PO DAILY [facility] Home Med (Lubiprostone [Amitiza]) 16 mcg PO DAILY [facility] Ciprofloxacin (Cipro 400mg/200ml Dsw) 400 mg in 200 mls @ 133 mls/hr IVPB Q12H [facility] PRN Reason: Protocol Last Admin: 02/04/18 02:46 Dose: 133 mls/hr Metronidazole (Flagyl) 500 mg in 100 mls @ 100 mls/hr IVPB Q8 [facility] PRN Reason: Protocol Last Admin: 02/04/18 05:53 Dose: 100 mls/hr Lactulose (Enulose) 10 gm PO Q6 [facility] Last Admin: 02/04/18 05:52 Dose: 10 gm Memantine (Namenda) 10 mg PO DAILY [facility] Last Admin: 02/03/18 09:20 Dose: 10 mg Multivitamins (Hexavitamin) 1 tab PO DAILY [facility] Last Admin: 02/03/18 09:20 Dose: 1 tab Pantoprazole Sodium (Protonix Inj) 40 mg IVP DAILY [facility] Last Admin: 02/03/18 09:20 Dose: 40 mg Sennosides (Senokot Tab) 8.6 mg PO QPM [facility] Last Admin: 02/03/18 18:22 Dose: 8.6 mg - Labs Labs: 02/04/18 06:48 02/04/18 06:48 PT 16.2 SECONDS (9.7-12.2) H 01/29/18 17:03 INR 1.4 01/29/18 17:03 APTT 30 SECONDS (21-34) 01/29/18 17:03 - Constitutional Appears: No Acute Distress, Cachectic, Chronically Ill - Head Exam Head Exam: ATRAUMATIC, NORMOCEPHALIC - Eye Exam Eye Exam: EOMI - ENT Exam ENT Exam: Mucous Membranes Moist - Respiratory Exam Respiratory Exam: Clear to Ausculation Bilateral, NORMAL BREATHING PATTERN - Cardiovascular Exam Cardiovascular Exam: +S1, +S2 - GI/Abdominal Exam GI & Abdominal Exam: Soft, Normal Bowel Sounds. absent: Tenderness - Neurological Exam Neurological Exam: Awake - Skin Skin Exam: Dry, Warm Assessment and Plan - Assessment and Plan (Free Text) Plan: 1. Proctitis leukocytosis increasing 19.4 today patient afebrile repeat blood and urine cultures pending- no growth on original cultures Dr. Haile, ID, consulted- help appreciated 02/03/18: start cipro 400 q12h, flagyl 500mg q8h PANCULTURE UA/URINE CULTURE IV CIPRO 400MG IV Q12 HRLY started 02/03/18 IV FLAGYL 500MG IVPB Q 8HRLY started 02/03/18 F/U CULTURES TO ADJUST ABX 2. Lytic lesion CT: L2 lytic lesion, fecal impaction with stercoral proctitis, adenopathy in mediastinum and left neck bone scan: L2 lytic lesion, [address] Milian, heme-onc, consulted- help appreciated lytic lesions noted by skeletal survey monoclonal protein w/u negative appearance not typical of prostate cancer mets despite elevated PSA globulin 5.7, high KATERINA & SPEP shows chronic inflammatory pattern 3. Constipation continue senokot 8.6mg PO QPM colace 100mg PO TID lactulose 10g PO Q6h 4. Syncope report of syncope at skilled nursing, that lasted for [address] 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 -2D echo images viewed by me on this visit shows LVH, EF 65%, Stage I diastolic dysfunction 5. Alzheimer's dementia continue namenda 10mg PO daily 6. History Prostate cancer patient's home medication bicalutamide non-formulary PSA 12.6 7. Prophylactic measure protonix 40mg IVP daily lovenox 40mg SC daily Multivitamin Case discussed with Dr. Diaz All medical management as per Dr. Diaz
[2018-02-04 09:30] LABS: ALBUMIN (PEP) 1.7 g/dL (3.8-4.8); ALPHA-1-GLOBULIN (PEP) 0.7 g/dL (0.2-0.3)
[2018-02-04] MEDS: Multiple Vitamins Tab PO SCH (10:24)
[2018-02-04] MEDS: Enoxaparin 40 mg Syringe SC SCH (10:24)
--- NOTE | 2018-02-04 18:33 | CP.PCM.PN ---
Subjective - Date & Time of Evaluation Date of Evaluation: 02/04/18 Time of Evaluation: 15:00 - Subjective Subjective: Appears comfortable Objective - Vital Signs/Intake and Output Vital Signs (last 24 hours): Temp Pulse Resp BP Pulse Ox 98.2 F 89 20 121/74 94 L 02/04/18 15:16 02/04/18 15:16 02/04/18 15:16 02/04/18 15:16 02/04/18 15:16 Intake and Output: 02/04/18 02/04/18 06:59 18:59 Intake Total 600 300 Output Total 800 Balance -200 300 - Medications Medications: Current Medications Docusate Sodium (Colace) 100 mg PO TID [facility] Last Admin: 02/04/18 17:50 Dose: 100 mg Enoxaparin Sodium (Lovenox) 40 mg SC DAILY [facility] Last Admin: 02/04/18 10:24 Dose: 40 mg Home Med (Bicalutamide [Casodex]) 50 mg PO DAILY [facility] Home Med (Lubiprostone [Amitiza]) 16 mcg PO DAILY [facility] Ciprofloxacin (Cipro 400mg/200ml Dsw) 400 mg in 200 mls @ 133 mls/hr IVPB Q12H [facility] PRN Reason: Protocol Last Admin: 02/04/18 14:07 Dose: 133 mls/hr Metronidazole (Flagyl) 500 mg in 100 mls @ 100 mls/hr IVPB Q8 [facility] PRN Reason: Protocol Last Admin: 02/04/18 13:44 Dose: 100 mls/hr Lactulose (Enulose) 10 gm PO Q6 [facility] Last Admin: 02/04/18 17:50 Dose: 10 gm Memantine (Namenda) 10 mg PO DAILY [facility] Last Admin: 02/04/18 10:24 Dose: 10 mg Multivitamins (Hexavitamin) 1 tab PO DAILY [facility] Last Admin: 02/04/18 10:24 Dose: 1 tab Pantoprazole Sodium (Protonix Inj) 40 mg IVP DAILY [facility] Last Admin: 02/04/18 10:24 Dose: 40 mg Sennosides (Senokot Tab) 8.6 mg PO QPM [facility] Last Admin: 02/04/18 17:50 Dose: 8.6 mg - Labs Labs: 02/04/18 06:48 02/04/18 06:48 PT 16.2 SECONDS (9.7-12.2) H 01/29/18 17:03 INR 1.4 01/29/18 17:03 APTT 30 SECONDS (21-34) 01/29/18 17:03 - Head Exam Head Exam: ATRAUMATIC - Eye Exam Eye Exam: Normal appearance - ENT Exam ENT Exam: Mucous Membranes Dry - Respiratory Exam Respiratory Exam: NORMAL BREATHING PATTERN - Cardiovascular Exam Cardiovascular Exam: +S1, +S2 - GI/Abdominal Exam GI & Abdominal Exam: Normal Bowel Sounds Assessment and Plan (1) Bone lesion Assessment & Plan: lytic lesions noted by skeletal survey monoclonal protein w/u negative appearance not typical of prostate cancer mets despite elevated PSA Status: Acute (2) Lymphadenopathy Assessment & Plan: ? malignancy related Status: Acute (3) Anemia Assessment & Plan: chronic disease Status: Acute
--- NOTE | 2018-02-04 21:35 | CP.PCM.PN ---
Subjective - Date & Time of Evaluation Date of Evaluation: 02/04/18 Time of Evaluation: 21:35 - Subjective Subjective: CHIEF COMPLAINTS TODAY : afebrile, drowsy,confused NON VERBAL ROS. HEENT : N. Resp : No SOB wheezing, cough Cardio : No CP, PND orthopnea GI : No abd. Pain, n/v ERP DEVELOPER : No headache , focal deficit. Musculoskel : N Ext. : Pedal pulses intact, no edema or calf pain Derm : N Psych : N. PE. Pt. is alert awake in no distress. V.S As noted in the chart Head ,ear nose,throat and eyes : Normal. Neck : Supple with normal carotids. Lungs: Clear air entry. Heart : S1 & S2 normal . . No murmur. S4 + Abd : Soft non tender with normal bowel sounds. Neuro : Moves all ext. with no localized deficit. Ext : No edema with intact pulses. Neg. calf tenderness Derm : No rashes or decubitus ulcer. Radiology/Labs WBC 19.4 INCREASING CREAT 0.6 /BUN 14. LFTS AP 260 TRANS N URINE CULTURE -GNR. Objective - Vital Signs/Intake and Output Vital Signs (last 24 hours): Temp Pulse Resp BP Pulse Ox 98.2 F 89 20 121/74 94 L 02/04/18 15:16 02/04/18 15:16 02/04/18 15:16 02/04/18 15:16 02/04/18 15:16 Intake and Output: 02/04/18 02/05/18 18:59 06:59 Intake Total 300 Balance 300 - Medications Medications: Current Medications Docusate Sodium (Colace) 100 mg PO TID [facility] Last Admin: 02/04/18 17:50 Dose: 100 mg Enoxaparin Sodium (Lovenox) 40 mg SC DAILY [facility] Last Admin: 02/04/18 10:24 Dose: 40 mg Home Med (Bicalutamide [Casodex]) 50 mg PO DAILY [facility] Home Med (Lubiprostone [Amitiza]) 16 mcg PO DAILY [facility] Ciprofloxacin (Cipro 400mg/200ml Dsw) 400 mg in 200 mls @ 133 mls/hr IVPB Q12H [facility] PRN Reason: Protocol Last Admin: 02/04/18 14:07 Dose: 133 mls/hr Metronidazole (Flagyl) 500 mg in 100 mls @ 100 mls/hr IVPB Q8 [facility] PRN Reason: Protocol Last Admin: 02/04/18 21:22 Dose: 100 mls/hr Lactulose (Enulose) 10 gm PO Q6 [facility] Last Admin: 02/04/18 17:50 Dose: 10 gm Memantine (Namenda) 10 mg PO DAILY [facility] Last Admin: 02/04/18 10:24 Dose: 10 mg Multivitamins (Hexavitamin) 1 tab PO DAILY [facility] Last Admin: 02/04/18 10:24 Dose: 1 tab Pantoprazole Sodium (Protonix Inj) 40 mg IVP DAILY [facility] Last Admin: 02/04/18 10:24 Dose: 40 mg Sennosides (Senokot Tab) 8.6 mg PO QPM [facility] Last Admin: 02/04/18 17:50 Dose: 8.6 mg - Labs Labs: 02/04/18 06:48 02/04/18 06:48 PT 16.2 SECONDS (9.7-12.2) H 01/29/18 17:03 INR 1.4 01/29/18 17:03 APTT 30 SECONDS (21-34) 01/29/18 17:03 Assessment and Plan (1) UTI (urinary tract infection) Status: Acute (2) Leukocytosis Status: Acute (3) Proctitis Status: Acute (4) Lymphadenopathy Status: Acute (5) Constipation Status: Acute (6) Syncope Status: Acute (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 1DOSE IV GENTAMICIN 80MG IVPB TODAY STAT 02/04/18 CONTINUE IV FLAGYL 500MG IVPB Q 8HRLY.02/03/18. F/U CULTURES TO ADJUST ABX. PT UNDERGOING W/U FOR SYNCOPE HEM/ONCOLOGY ON BOARD.
--- NOTE | 2018-02-04 21:54 | CP.PCM.PN ---
Subjective - Date & Time of Evaluation Date of Evaluation: 02/04/18 Time of Evaluation: 11:40 - Subjective Subjective: clinically same Objective - Vital Signs/Intake and Output Vital Signs (last 24 hours): Temp Pulse Resp BP Pulse Ox 98.2 F 89 20 121/74 94 L 02/04/18 15:16 02/04/18 15:16 02/04/18 15:16 02/04/18 15:16 02/04/18 15:16 Intake and Output: 02/04/18 02/05/18 18:59 06:59 Intake Total 300 Balance 300 - Medications Medications: Current Medications Docusate Sodium (Colace) 100 mg PO TID [facility] Last Admin: 02/04/18 17:50 Dose: 100 mg Enoxaparin Sodium (Lovenox) 40 mg SC DAILY [facility] Last Admin: 02/04/18 10:24 Dose: 40 mg Home Med (Bicalutamide [Casodex]) 50 mg PO DAILY [facility] Home Med (Lubiprostone [Amitiza]) 16 mcg PO DAILY [facility] Metronidazole (Flagyl) 500 mg in 100 mls @ 100 mls/hr IVPB Q8 [facility] PRN Reason: Protocol Last Admin: 02/04/18 21:22 Dose: 100 mls/hr Meropenem 500 mg/ Sodium (Chloride) 100 mls @ 100 mls/hr IVPB Q8 [facility] PRN Reason: Protocol Lactulose (Enulose) 10 gm PO Q6 [facility] Last Admin: 02/04/18 17:50 Dose: 10 gm Memantine (Namenda) 10 mg PO DAILY [facility] Last Admin: 02/04/18 10:24 Dose: 10 mg Multivitamins (Hexavitamin) 1 tab PO DAILY [facility] Last Admin: 02/04/18 10:24 Dose: 1 tab Pantoprazole Sodium (Protonix Inj) 40 mg IVP DAILY [facility] Last Admin: 02/04/18 10:24 Dose: 40 mg Sennosides (Senokot Tab) 8.6 mg PO QPM [facility] Last Admin: 02/04/18 17:50 Dose: 8.6 mg - Labs Labs: 02/04/18 06:48 02/04/18 06:48 PT 16.2 SECONDS (9.7-12.2) H 01/29/18 17:03 INR 1.4 01/29/18 17:03 APTT 30 SECONDS (21-34) 01/29/18 17:03 - Constitutional Appears: Well - Head Exam Head Exam: ATRAUMATIC, NORMAL INSPECTION, NORMOCEPHALIC - Eye Exam Eye Exam: EOMI, Normal appearance, PERRL Pupil Exam: NORMAL ACCOMODATION, PERRL - ENT Exam ENT Exam: Mucous Membranes Moist, Normal Exam - Neck Exam Neck Exam: Full ROM, Normal Inspection. absent: Lymphadenopathy - Respiratory Exam Respiratory Exam: Decreased Breath Sounds - Cardiovascular Exam Cardiovascular Exam: REGULAR RHYTHM, +S1, +S2 - GI/Abdominal Exam GI & Abdominal Exam: Soft, Diminished Bowel Sounds - Rectal Exam Rectal Exam: Deferred Assessment and Plan (1) Anemia Status: Acute (2) Bone lesion Status: Acute (3) Leukocytosis Status: Acute (4) Lymphadenopathy Status: Acute (5) Constipation Status: Acute (6) Obstipation Status: Acute
[2018-02-04] MEDS: Meropenem 500 MG in Sodium Chloride 0.9% 100 ML IVPB SCH (22:13)
[2018-02-05] MEDS: metroNIDAZOLE IV 500 mg/100 ml 500 MG/100 ML BAG IVPB SCH ×3 (05:09→21:09)
[2018-02-05] MEDS: Meropenem 500 MG in Sodium Chloride 0.9% 100 ML IVPB SCH ×3 (06:00→23:00)
[2018-02-05 06:55] LABS: BASO % 0.2 % (0.0-2.0); EOS # 0.1 K/uL (0.0-0.7); EOS % 0.4 % (0.0-4.0); HEMOGLOBIN 8.7 g/dL (12.0-18.0); LYMPH # 1.3 K/uL (1.0-4.3); LYMPH % 7.4 % (20.0-40.0); MEAN CELL VOLUME 85.7 fL (80.0-94.0); MEAN CORPUSCULAR HEMOGLOBIN 28.4 pg (27.0-31.0); MEAN CORPUSCULAR HGB CONC 33.2 g/dL (33.0-37.0); MONO # 2.1 K/uL (0.0-0.8); MONO % 11.9 % (0.0-10.0); NEUT # 14.3 K/uL (1.8-7.0); NEUT % 80.1 % (50.0-75.0); PLATELET COUNT 517 K/uL (130-400); RBC 3.07 Mil/uL (4.40-5.90); RED CELL DISTRIBUTION WIDTH 16.6 % (11.5-14.5); WHITE BLOOD COUNT 17.9 K/uL (4.8-10.8)
[2018-02-05 08:17] LABS: ANISOCYTOSIS SLIGHT; EOSINOPHIL 1 % (0-4); HYPOCHROMIC SLIGHT; LYMPHOCYTE 7 % (20-40); MONOCYTE 12 % (0-10); NEUTROPHIL 80 % (50-75); PLATELET ESTIMATE INCREASED (NORMAL); TOTAL CELLS COUNTED 100
[2018-02-05 09:29] LABS: ALB/GLOB RATIO 0.5 (1.0-2.1); ALBUMIN 2.9 g/dL (3.5-5.0); ALT/SGPT 12 U/L (21-72); AST/SGOT 40 U/L (17-59); BLOOD UREA NITROGEN 14 mg/dL (9-20); CALCIUM 9.5 mg/dl (8.6-10.4); GFR AFRICAN-AMERICAN > 60; GFR NON-AFRICAN AMERICAN > 60
--- NOTE | 2018-02-05 09:41 | CP.PCM.PN ---
Subjective - Date & Time of Evaluation Date of Evaluation: 02/05/18 Time of Evaluation: 10:20 - Subjective Subjective: clinically same Objective - Vital Signs/Intake and Output Vital Signs (last 24 hours): Temp Pulse Resp BP Pulse Ox 98.5 F 84 20 105/66 97 02/05/18 07:55 02/05/18 07:55 02/05/18 07:55 02/05/18 07:55 02/05/18 07:55 Intake and Output: 02/05/18 02/05/18 06:59 18:59 Output Total 800 Balance -800 - Medications Medications: Current Medications Docusate Sodium (Colace) 100 mg PO TID [facility] Last Admin: 02/04/18 17:50 Dose: 100 mg Enoxaparin Sodium (Lovenox) 40 mg SC DAILY [facility] Last Admin: 02/04/18 10:24 Dose: 40 mg Home Med (Bicalutamide [Casodex]) 50 mg PO DAILY [facility] Home Med (Lubiprostone [Amitiza]) 16 mcg PO DAILY [facility] Metronidazole (Flagyl) 500 mg in 100 mls @ 100 mls/hr IVPB Q8 [facility] PRN Reason: Protocol Last Admin: 02/05/18 05:09 Dose: 100 mls/hr Meropenem 500 mg/ Sodium (Chloride) 100 mls @ 100 mls/hr IVPB Q8 [facility] PRN Reason: Protocol Last Admin: 02/05/18 06:00 Dose: 100 mls/hr Lactulose (Enulose) 10 gm PO Q6 [facility] Last Admin: 02/05/18 06:00 Dose: 10 gm Memantine (Namenda) 10 mg PO DAILY [facility] Last Admin: 02/04/18 10:24 Dose: 10 mg Multivitamins (Hexavitamin) 1 tab PO DAILY [facility] Last Admin: 02/04/18 10:24 Dose: 1 tab Pantoprazole Sodium (Protonix Inj) 40 mg IVP DAILY [facility] Last Admin: 02/04/18 10:24 Dose: 40 mg Sennosides (Senokot Tab) 8.6 mg PO QPM [facility] Last Admin: 02/04/18 17:50 Dose: 8.6 mg - Labs Labs: 02/05/18 06:47 02/05/18 06:47 PT 16.2 SECONDS (9.7-12.2) H 01/29/18 17:03 INR 1.4 01/29/18 17:03 APTT 30 SECONDS (21-34) 01/29/18 17:03 - Constitutional Appears: Well - Head Exam Head Exam: ATRAUMATIC, NORMAL INSPECTION, NORMOCEPHALIC - Eye Exam Eye Exam: EOMI, Normal appearance, PERRL Pupil Exam: NORMAL ACCOMODATION, PERRL - ENT Exam ENT Exam: Mucous Membranes Moist, Normal Exam - Neck Exam Neck Exam: Full ROM, Normal Inspection. absent: Lymphadenopathy - Respiratory Exam Respiratory Exam: Decreased Breath Sounds - Cardiovascular Exam Cardiovascular Exam: REGULAR RHYTHM, +S1, +S2 - GI/Abdominal Exam GI & Abdominal Exam: Soft, Diminished Bowel Sounds - Rectal Exam Rectal Exam: Deferred Assessment and Plan (1) Anemia Status: Acute (2) Bone lesion Status: Acute (3) Leukocytosis Status: Acute (4) Lymphadenopathy Status: Acute (5) Constipation Status: Acute (6) Obstipation Status: Acute
[2018-02-05] MEDS: Multiple Vitamins Tab PO SCH (10:06)
[2018-02-05] MEDS: Enoxaparin 40 mg Syringe SC SCH (10:06)
--- NOTE | 2018-02-05 15:17 | CP.PCM.PN ---
Subjective - Date & Time of Evaluation Date of Evaluation: 02/05/18 Time of Evaluation: 11:30 - Subjective Subjective: Medicine Progress Note for Dr. Diaz Patient seen and examined at bedside. No acute events reported overnight. Patient has not been eating much per staff. Unable to obtain further ROS due to baseline non verbal status. Objective - Vital Signs/Intake and Output Vital Signs (last 24 hours): Temp Pulse Resp BP Pulse Ox 98.5 F 84 20 105/66 97 02/05/18 07:55 02/05/18 07:55 02/05/18 07:55 02/05/18 07:55 02/05/18 07:55 Intake and Output: 02/05/18 02/05/18 06:59 18:59 Intake Total 300 Output Total 800 400 Balance -800 -100 - Medications Medications: Current Medications Docusate Sodium (Colace) 100 mg PO TID [facility] Last Admin: 02/05/18 13:50 Dose: 100 mg Enoxaparin Sodium (Lovenox) 40 mg SC DAILY [facility] Last Admin: 02/05/18 10:06 Dose: 40 mg Home Med (Bicalutamide [Casodex]) 50 mg PO DAILY [facility] Home Med (Lubiprostone [Amitiza]) 16 mcg PO DAILY [facility] Metronidazole (Flagyl) 500 mg in 100 mls @ 100 mls/hr IVPB Q8 [facility] PRN Reason: Protocol Last Admin: 02/05/18 13:30 Dose: 100 mls/hr Meropenem 500 mg/ Sodium (Chloride) 100 mls @ 100 mls/hr IVPB Q8 [facility] PRN Reason: Protocol Last Admin: 02/05/18 13:41 Dose: 100 mls/hr Lactulose (Enulose) 10 gm PO Q6 [facility] Last Admin: 02/05/18 13:41 Dose: 10 gm Memantine (Namenda) 10 mg PO DAILY [facility] Last Admin: 02/05/18 10:06 Dose: 10 mg Multivitamins (Hexavitamin) 1 tab PO DAILY [facility] Last Admin: 02/05/18 10:06 Dose: 1 tab Pantoprazole Sodium (Protonix Inj) 40 mg IVP DAILY [facility] Last Admin: 02/05/18 10:06 Dose: 40 mg Sennosides (Senokot Tab) 8.6 mg PO QPM [facility] Last Admin: 02/04/18 17:50 Dose: 8.6 mg - Labs Labs: 02/05/18 06:47 02/05/18 06:47 PT 16.2 SECONDS (9.7-12.2) H 01/29/18 17:03 INR 1.4 01/29/18 17:03 APTT 30 SECONDS (21-34) 01/29/18 17:03 - Additional Findings Additional findings: - Constitutional Appears: No Acute Distress, Cachectic, Chronically Ill - Head Exam Head Exam: ATRAUMATIC, NORMOCEPHALIC - Eye Exam Eye Exam: EOMI - ENT Exam ENT Exam: Mucous Membranes Moist - Respiratory Exam Respiratory Exam: Clear to Ausculation Bilateral, NORMAL BREATHING PATTERN - Cardiovascular Exam Cardiovascular Exam: +S1, +S2 - GI/Abdominal Exam GI & Abdominal Exam: Soft, Normal Bowel Sounds. absent: Tenderness - Neurological Exam Neurological Exam: Awake - Skin Skin Exam: Dry, Warm Assessment and Plan - Assessment and Plan (Free Text) Assessment: 1. Proctitis leukocytosis increasing 17.9 today patient afebrile Urine culture positive for Proteus Mirabilis Blood culture no growth after 24hrs Dr. Haile, ID, consulted- help appreciated Discontinue IV CIPRO 400MG IV Q12 HRLY started 02/03/18 IV FLAGYL 500MG IVPB Q 8HRLY started 02/03/18 IV GENTAMYCIN 80mg Q8 started 02/04/18 IV MEROPENEM 500mg Q8 started 02/04/18 F/U CULTURES TO ADJUST ABX 2. Lytic lesion CT: L2 lytic lesion, fecal impaction with stercoral proctitis, adenopathy in mediastinum and left neck bone scan: L2 lytic lesion, [address] Milian, heme-onc, consulted- help appreciated lytic lesions noted by skeletal survey monoclonal protein w/u negative appearance not typical of prostate cancer mets despite elevated PSA globulin 5.7, high KATERINA & SPEP shows chronic inflammatory pattern 3. Constipation continue senokot 8.6mg PO QPM colace 100mg PO TID lactulose 10g PO Q6h Last BM 02/04/18 4. Syncope report of syncope at custodial, that lasted for 10 seconds Cardio, Dr. 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 -2D echo images viewed by me on this visit shows LVH, EF 65%, Stage I diastolic dysfunction 5. Alzheimer's dementia continue namenda 10mg PO daily 6. History Prostate cancer patient's home medication bicalutamide non-formulary PSA 12.6 7. Prophylactic measure protonix 40mg IVP daily lovenox 40mg SC daily Multivitamin Case discussed with Dr. Diaz All medical management as per Dr. Diaz
[2018-02-05] MEDS: Sodium Chloride 0.9% 1,000 ML IV SCH (16:30)
--- NOTE | 2018-02-05 22:55 | CP.PCM.PN ---
Subjective - Date & Time of Evaluation Date of Evaluation: 02/05/18 Time of Evaluation: 12:00 - Subjective Subjective: Appears comfortable Objective - Vital Signs/Intake and Output Vital Signs (last 24 hours): Temp Pulse Resp BP Pulse Ox 97.3 F L 87 20 109/64 94 L 02/05/18 15:17 02/05/18 15:17 02/05/18 15:17 02/05/18 15:17 02/05/18 15:17 Intake and Output: 02/05/18 02/06/18 18:59 06:59 Intake Total 300 Output Total 400 450 Balance -100 -450 - Medications Medications: Current Medications Docusate Sodium (Colace) 100 mg PO TID [facility] Last Admin: 02/05/18 18:51 Dose: 100 mg Enoxaparin Sodium (Lovenox) 40 mg SC DAILY [facility] Last Admin: 02/05/18 10:06 Dose: 40 mg Home Med (Bicalutamide [Casodex]) 50 mg PO DAILY [facility] Home Med (Lubiprostone [Amitiza]) 16 mcg PO DAILY [facility] Metronidazole (Flagyl) 500 mg in 100 mls @ 100 mls/hr IVPB Q8 [facility] PRN Reason: Protocol Last Admin: 02/05/18 21:09 Dose: 100 mls/hr Meropenem 500 mg/ Sodium (Chloride) 100 mls @ 100 mls/hr IVPB Q8 [facility] PRN Reason: Protocol Last Admin: 02/05/18 13:41 Dose: 100 mls/hr Sodium Chloride (Sodium Chloride 0.9%) 1,000 mls @ 75 mls/hr IV .[id number] [facility] Last Admin: 02/05/18 16:30 Dose: 75 mls/hr Lactulose (Enulose) 10 gm PO Q6 [facility] Last Admin: 02/05/18 18:51 Dose: 10 gm Memantine (Namenda) 10 mg PO DAILY [facility] Last Admin: 02/05/18 10:06 Dose: 10 mg Multivitamins (Hexavitamin) 1 tab PO DAILY [facility] Last Admin: 02/05/18 10:06 Dose: 1 tab Pantoprazole Sodium (Protonix Inj) 40 mg IVP DAILY [facility] Last Admin: 02/05/18 10:06 Dose: 40 mg Sennosides (Senokot Tab) 8.6 mg PO QPM [facility] Last Admin: 02/05/18 18:51 Dose: 8.6 mg - Labs Labs: 02/05/18 06:47 02/05/18 06:47 PT 16.2 SECONDS (9.7-12.2) H 01/29/18 17:03 INR 1.4 01/29/18 17:03 APTT 30 SECONDS (21-34) 01/29/18 17:03 - Head Exam Head Exam: ATRAUMATIC - Eye Exam Eye Exam: Normal appearance - ENT Exam ENT Exam: Mucous Membranes Dry - Respiratory Exam Respiratory Exam: NORMAL BREATHING PATTERN - Cardiovascular Exam Cardiovascular Exam: +S1, +S2 - GI/Abdominal Exam GI & Abdominal Exam: Normal Bowel Sounds Assessment and Plan (1) Bone lesion Assessment & Plan: lytic lesions noted by skeletal survey monoclonal protein w/u negative appearance not typical of prostate cancer mets despite elevated PSA Status: Acute (2) Lymphadenopathy Assessment & Plan: ? malignancy related Status: Acute (3) Anemia Assessment & Plan: chronic disease Status: Acute
--- NOTE | 2018-02-05 23:12 | CP.PCM.PN ---
Subjective - Date & Time of Evaluation Date of Evaluation: 02/05/18 Time of Evaluation: 23:12 - Subjective Subjective: CHIEF COMPLAINTS TODAY : afebrile, eating better as per RN NON VERBAL ROS. HEENT : N. Resp : No SOB wheezing, cough Cardio : No CP, PND orthopnea GI : No abd. 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 Musculoskel : N Ext. : Pedal pulses intact, no edema or calf pain Derm : N Psych : N. PE. Pt. is awake in no distress. V.S As noted in the chart Head ,ear nose,throat and eyes : Normal. Neck : Supple with normal carotids. Lungs: Clear air entry. Heart : S1 & S2 normal . . No murmur. S4 + Abd : Soft non tender with normal bowel sounds. Neuro : Moves all ext. with no localized deficit. Ext : No edema with intact pulses. Neg. calf tenderness Derm : No rashes or decubitus ulcer. Radiology/Labs WBC 17.9 H/H 8.7 CREAT 0.6 /BUN 14. LFTS AP 246 / TRANS N URINE CULTURE -PROTEUS MIRABLIS S -MEROPENEM. GENTA Objective - Vital Signs/Intake and Output Vital Signs (last 24 hours): Temp Pulse Resp BP Pulse Ox 97.3 F L 87 20 109/64 94 L 02/05/18 15:17 02/05/18 15:17 02/05/18 15:17 02/05/18 15:17 02/05/18 15:17 Intake and Output: 02/05/18 02/06/18 18:59 06:59 Intake Total 300 Output Total 400 450 Balance -100 -450 - Medications Medications: Current Medications Docusate Sodium (Colace) 100 mg PO TID [facility] Last Admin: 02/05/18 18:51 Dose: 100 mg Enoxaparin Sodium (Lovenox) 40 mg SC DAILY [facility] Last Admin: 02/05/18 10:06 Dose: 40 mg Home Med (Bicalutamide [Casodex]) 50 mg PO DAILY [facility] Home Med (Lubiprostone [Amitiza]) 16 mcg PO DAILY [facility] Metronidazole (Flagyl) 500 mg in 100 mls @ 100 mls/hr IVPB Q8 [facility] PRN Reason: Protocol Last Admin: 02/05/18 21:09 Dose: 100 mls/hr Meropenem 500 mg/ Sodium (Chloride) 100 mls @ 100 mls/hr IVPB Q8 [facility] PRN Reason: Protocol Last Admin: 02/05/18 23:00 Dose: 100 mls/hr Sodium Chloride (Sodium Chloride 0.9%) 1,000 mls @ 75 mls/hr IV .[id number] [facility] Last Admin: 02/05/18 16:30 Dose: 75 mls/hr Gentamicin Sulfate 80 mg/ (Sodium Chloride) 102 mls @ 100 mls/hr IVPB Q24H [facility] PRN Reason: Protocol Stop: 02/07/18 00:17 Lactulose (Enulose) 10 gm PO Q6 [facility] Last Admin: 02/05/18 18:51 Dose: 10 gm Memantine (Namenda) 10 mg PO DAILY [facility] Last Admin: 02/05/18 10:06 Dose: 10 mg Multivitamins (Hexavitamin) 1 tab PO DAILY [facility] Last Admin: 02/05/18 10:06 Dose: 1 tab Pantoprazole Sodium (Protonix Inj) 40 mg IVP DAILY [facility] Last Admin: 02/05/18 10:06 Dose: 40 mg Sennosides (Senokot Tab) 8.6 mg PO QPM [facility] Last Admin: 02/05/18 18:51 Dose: 8.6 mg - Labs Labs: 02/05/18 06:47 02/05/18 06:47 PT 16.2 SECONDS (9.7-12.2) H 01/29/18 17:03 INR 1.4 01/29/18 17:03 APTT 30 SECONDS (21-34) 01/29/18 17:03 Assessment and Plan (1) UTI (urinary tract infection) Status: Acute (2) Leukocytosis Status: Acute (3) Proctitis Status: Acute (4) Lymphadenopathy Status: Acute (5) Constipation Status: Acute (6) Syncope Status: Acute (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 CONTINUE IV GENTAMICIN 80MG IVPB X 2 MORE DOSES. ( 02/04/18 ) CONTINUE IV FLAGYL 500MG IVPB Q 8HRLY.02/03/18. PT UNDERGOING W/U FOR SYNCOPE HEM/ONCOLOGY ON BOARD.
[2018-02-06] MEDS: Sodium Chloride 0.9% 1,000 ML IV SCH ×3 (04:35→17:52)
[2018-02-06] MEDS: Meropenem 500 MG in Sodium Chloride 0.9% 100 ML IVPB SCH ×3 (05:00→21:10)
[2018-02-06] MEDS: metroNIDAZOLE IV 500 mg/100 ml 500 MG/100 ML BAG IVPB SCH ×3 (06:05→21:41)
[2018-02-06 07:33] LABS: BASO % 0.3 % (0.0-2.0); EOS % 0.3 % (0.0-4.0); HEMOGLOBIN 8.8 g/dL (12.0-18.0); LYMPH % 6.3 % (20.0-40.0); MEAN CELL VOLUME 85.6 fL (80.0-94.0); MEAN CORPUSCULAR HEMOGLOBIN 28.3 pg (27.0-31.0); MONO # 1.8 K/uL (0.0-0.8); MONO % 11.3 % (0.0-10.0); NEUT # 13.3 K/uL (1.8-7.0); NEUT % 81.8 % (50.0-75.0); PLATELET COUNT 546 K/uL (130-400); RBC 3.11 Mil/uL (4.40-5.90); RED CELL DISTRIBUTION WIDTH 16.3 % (11.5-14.5); WHITE BLOOD COUNT 16.3 K/uL (4.8-10.8)
[2018-02-06 07:55] LABS: ALB/GLOB RATIO 0.5 (1.0-2.1); ALBUMIN 2.8 g/dL (3.5-5.0); ALT/SGPT 20 U/L (21-72); AST/SGOT 29 U/L (17-59); BLOOD UREA NITROGEN 10 mg/dL (9-20); CALCIUM 9.2 mg/dl (8.6-10.4); GFR AFRICAN-AMERICAN > 60; GFR NON-AFRICAN AMERICAN > 60
[2018-02-06 08:57] LABS: LYMPHOCYTE 5 % (20-40); MONOCYTE 10 % (0-10); NEUTROPHIL 85 % (50-75); NUCLEATED RED BLOOD CELL 1 % (0-0); PLATELET ESTIMATE INCREASED (NORMAL); TOTAL CELLS COUNTED 100
[2018-02-06 08:59] LABS: ANISOCYTOSIS SLIGHT; GIANT PLATELETS PRESENT; HYPOCHROMIC SLIGHT; LARGE PLATELETS PRESENT; POIKILOCYTOSIS SLIGHT; TARGET CELLS SLIGHT
[2018-02-06] MEDS: Enoxaparin 40 mg Syringe SC SCH (10:15)
[2018-02-06] MEDS: Multiple Vitamins Tab PO SCH (10:19)
--- NOTE | 2018-02-06 11:35 | CP.PCM.PN ---
Subjective - Date & Time of Evaluation Date of Evaluation: 02/06/18 Time of Evaluation: 10:00 - Subjective Subjective: clinically same Objective - Vital Signs/Intake and Output Vital Signs (last 24 hours): Temp Pulse Resp BP Pulse Ox 97.5 F L 81 20 120/61 98 02/06/18 07:00 02/06/18 07:00 02/06/18 07:00 02/06/18 07:00 02/06/18 07:00 Intake and Output: 02/06/18 02/06/18 06:59 18:59 Intake Total 1345 Output Total 950 Balance 395 - Medications Medications: Current Medications Docusate Sodium (Colace) 100 mg PO TID [facility] Last Admin: 02/05/18 18:51 Dose: 100 mg Enoxaparin Sodium (Lovenox) 40 mg SC DAILY [facility] Last Admin: 02/05/18 10:06 Dose: 40 mg Home Med (Bicalutamide [Casodex]) 50 mg PO DAILY [facility] Home Med (Lubiprostone [Amitiza]) 16 mcg PO DAILY [facility] Metronidazole (Flagyl) 500 mg in 100 mls @ 100 mls/hr IVPB Q8 [facility] PRN Reason: Protocol Last Admin: 02/06/18 06:05 Dose: 100 mls/hr Meropenem 500 mg/ Sodium (Chloride) 100 mls @ 100 mls/hr IVPB Q8 [facility] PRN Reason: Protocol Last Admin: 02/06/18 05:00 Dose: 100 mls/hr Sodium Chloride (Sodium Chloride 0.9%) 1,000 mls @ 75 mls/hr IV .[id number] [facility] Last Admin: 02/06/18 11:29 Dose: 75 mls/hr Gentamicin Sulfate 80 mg/ (Sodium Chloride) 102 mls @ 100 mls/hr IVPB Q24H [facility] PRN Reason: Protocol Stop: 02/07/18 00:17 Last Admin: 02/06/18 00:29 Dose: 100 mls/hr Lactulose (Enulose) 10 gm PO Q6 [facility] Last Admin: 02/06/18 05:59 Dose: 10 gm Memantine (Namenda) 10 mg PO DAILY [facility] Last Admin: 02/06/18 10:19 Dose: 10 mg Multivitamins (Hexavitamin) 1 tab PO DAILY [facility] Last Admin: 02/06/18 10:19 Dose: 1 tab Pantoprazole Sodium (Protonix Inj) 40 mg IVP DAILY [facility] Last Admin: 02/06/18 10:18 Dose: 40 mg Sennosides (Senokot Tab) 8.6 mg PO QPM [facility] Last Admin: 02/05/18 18:51 Dose: 8.6 mg - Labs Labs: 02/06/18 07:27 02/06/18 07:27 PT 16.2 SECONDS (9.7-12.2) H 01/29/18 17:03 INR 1.4 01/29/18 17:03 APTT 30 SECONDS (21-34) 01/29/18 17:03 - Constitutional Appears: Well - Head Exam Head Exam: ATRAUMATIC, NORMAL INSPECTION, NORMOCEPHALIC - Eye Exam Eye Exam: EOMI, Normal appearance, PERRL Pupil Exam: NORMAL ACCOMODATION, PERRL - ENT Exam ENT Exam: Mucous Membranes Moist, Normal Exam - Neck Exam Neck Exam: Full ROM, Normal Inspection. absent: Lymphadenopathy - Respiratory Exam Respiratory Exam: Decreased Breath Sounds - Cardiovascular Exam Cardiovascular Exam: REGULAR RHYTHM, +S1, +S2 - GI/Abdominal Exam GI & Abdominal Exam: Soft, Diminished Bowel Sounds - Rectal Exam Rectal Exam: Deferred Assessment and Plan (1) Anemia Status: Acute (2) Bone lesion Status: Acute (3) Leukocytosis Status: Acute (4) Lymphadenopathy Status: Acute (5) Constipation Status: Acute (6) Obstipation Status: Acute
--- NOTE | 2018-02-06 13:50 | CP.PCM.PN ---
Subjective - Date & Time of Evaluation Date of Evaluation: 02/06/18 Time of Evaluation: 13:00 - Subjective Subjective: Appears comfortable. Objective - Vital Signs/Intake and Output Vital Signs (last 24 hours): Temp Pulse Resp BP Pulse Ox 97.5 F L 81 20 120/61 98 02/06/18 07:00 02/06/18 07:00 02/06/18 07:00 02/06/18 07:00 02/06/18 07:00 Intake and Output: 02/06/18 02/06/18 06:59 18:59 Intake Total 1345 Output Total 950 Balance 395 - Medications Medications: Current Medications Docusate Sodium (Colace) 100 mg PO TID [facility] Last Admin: 02/06/18 10:41 Dose: 100 mg Enoxaparin Sodium (Lovenox) 40 mg SC DAILY [facility] Last Admin: 02/05/18 10:06 Dose: 40 mg Home Med (Bicalutamide [Casodex]) 50 mg PO DAILY [facility] Home Med (Lubiprostone [Amitiza]) 16 mcg PO DAILY [facility] Metronidazole (Flagyl) 500 mg in 100 mls @ 100 mls/hr IVPB Q8 [facility] PRN Reason: Protocol Last Admin: 02/06/18 06:05 Dose: 100 mls/hr Meropenem 500 mg/ Sodium (Chloride) 100 mls @ 100 mls/hr IVPB Q8 [facility] PRN Reason: Protocol Last Admin: 02/06/18 05:00 Dose: 100 mls/hr Sodium Chloride (Sodium Chloride 0.9%) 1,000 mls @ 75 mls/hr IV .[id number] [facility] Last Admin: 02/06/18 11:29 Dose: 75 mls/hr Gentamicin Sulfate 80 mg/ (Sodium Chloride) 102 mls @ 100 mls/hr IVPB Q24H [facility] PRN Reason: Protocol Stop: 02/07/18 00:17 Last Admin: 02/06/18 00:29 Dose: 100 mls/hr Lactulose (Enulose) 10 gm PO Q6 [facility] Last Admin: 02/06/18 05:59 Dose: 10 gm Memantine (Namenda) 10 mg PO DAILY [facility] Last Admin: 02/06/18 10:19 Dose: 10 mg Multivitamins (Hexavitamin) 1 tab PO DAILY [facility] Last Admin: 02/06/18 10:19 Dose: 1 tab Pantoprazole Sodium (Protonix Inj) 40 mg IVP DAILY [facility] Last Admin: 02/06/18 10:18 Dose: 40 mg Sennosides (Senokot Tab) 8.6 mg PO QPM [facility] Last Admin: 02/05/18 18:51 Dose: 8.6 mg - Labs Labs: 02/06/18 07:27 02/06/18 07:27 PT 16.2 SECONDS (9.7-12.2) H 01/29/18 17:03 INR 1.4 01/29/18 17:03 APTT 30 SECONDS (21-34) 01/29/18 17:03 - Head Exam Head Exam: ATRAUMATIC - Eye Exam Eye Exam: Normal appearance - ENT Exam ENT Exam: Mucous Membranes Dry - Respiratory Exam Respiratory Exam: NORMAL BREATHING PATTERN - Cardiovascular Exam Cardiovascular Exam: +S1, +S2 - GI/Abdominal Exam GI & Abdominal Exam: Normal Bowel Sounds Assessment and Plan (1) Bone lesion Assessment & Plan: lytic lesions noted by skeletal survey monoclonal protein w/u negative appearance not typical of prostate cancer mets despite elevated PSA Status: Acute (2) Lymphadenopathy Assessment & Plan: ? malignancy related Status: Acute (3) Anemia Assessment & Plan: chronic disease Status: Acute
--- NOTE | 2018-02-06 23:09 | CP.PCM.PN ---
Subjective - Date & Time of Evaluation Date of Evaluation: 02/06/18 Time of Evaluation: 23:09 - Subjective Subjective: CHIEF COMPLAINTS TODAY : afebrile, eating better comfortable NON VERBAL ROS. HEENT : N. Resp : No SOB wheezing, cough Cardio : No CP, PND orthopnea GI : No abd. 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 Musculoskel : N Ext. : Pedal pulses intact, no edema or calf pain Derm : N Psych : N. PE. Pt. is awake in no distress. V.S As noted in the chart Head ,ear nose,throat and eyes : Normal. Neck : Supple with normal carotids. Lungs: Clear air entry. Heart : S1 & S2 normal . . No murmur. S4 + Abd : Soft non tender with normal bowel sounds. Neuro : Moves all ext. with no localized deficit. Ext : No edema with intact pulses. Neg. calf tenderness Derm : No rashes or decubitus ulcer. Radiology/Labs URINE CULTURE -PROTEUS MIRABLIS S -MEROPENEM. GENTA Objective - Vital Signs/Intake and Output Vital Signs (last 24 hours): Temp Pulse Resp BP Pulse Ox 97.8 F 85 20 133/72 97 02/06/18 15:00 02/06/18 15:00 02/06/18 15:00 02/06/18 15:00 02/06/18 15:00 Intake and Output: 02/06/18 02/07/18 18:59 06:59 Intake Total 850 890 Output Total 500 600 Balance 350 290 - Medications Medications: Current Medications Docusate Sodium (Colace) 100 mg PO TID [facility] Last Admin: 02/06/18 17:51 Dose: 100 mg Enoxaparin Sodium (Lovenox) 40 mg SC DAILY [facility] Last Admin: 02/06/18 10:15 Dose: 40 mg Home Med (Bicalutamide [Casodex]) 50 mg PO DAILY [facility] Home Med (Lubiprostone [Amitiza]) 16 mcg PO DAILY [facility] Meropenem 500 mg/ Sodium (Chloride) 100 mls @ 100 mls/hr IVPB Q8 [facility] PRN Reason: Protocol Last Admin: 02/06/18 21:10 Dose: 100 mls/hr Sodium Chloride (Sodium Chloride 0.9%) 1,000 mls @ 75 mls/hr IV .[id number] [facility] Last Admin: 02/06/18 17:52 Dose: Not Given Gentamicin Sulfate 80 mg/ (Sodium Chloride) 102 mls @ 100 mls/hr IVPB Q24H [facility] PRN Reason: Protocol Stop: 02/07/18 00:17 Last Admin: 02/06/18 22:15 Dose: 100 mls/hr Lactulose (Enulose) 10 gm PO Q6 [facility] Last Admin: 02/06/18 17:51 Dose: 10 gm Memantine (Namenda) 10 mg PO DAILY [facility] Last Admin: 02/06/18 10:19 Dose: 10 mg Multivitamins (Hexavitamin) 1 tab PO DAILY [facility] Last Admin: 02/06/18 10:19 Dose: 1 tab Pantoprazole Sodium (Protonix Inj) 40 mg IVP DAILY [facility] Last Admin: 02/06/18 10:18 Dose: 40 mg Sennosides (Senokot Tab) 8.6 mg PO QPM [facility] Last Admin: 02/06/18 17:51 Dose: 8.6 mg - Labs Labs: 02/06/18 07:27 02/06/18 07:27 PT 16.2 SECONDS (9.7-12.2) H 01/29/18 17:03 INR 1.4 01/29/18 17:03 APTT 30 SECONDS (21-34) 01/29/18 17:03 Assessment and Plan (1) UTI (urinary tract infection) Status: Acute (2) Leukocytosis Status: Acute (3) Proctitis Status: Acute (4) Lymphadenopathy Status: Acute (5) Constipation Status: Acute (6) Syncope Status: Acute (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 CONTINUE IV GENTAMICIN 80MG IVPB X 2 MORE DOSES. ( 02/04/18 ) last dose today CONTINUE IV FLAGYL 500MG IVPB Q 8HRLY.02/03/18. PT UNDERGOING W/U FOR SYNCOPE/MULTIPLE MYELOMA PER CONSULTANTS. HEM/ONCOLOGY ON BOARD.
[2018-02-07] MEDS: Meropenem 500 MG in Sodium Chloride 0.9% 100 ML IVPB SCH ×2 (06:17→14:33)
[2018-02-07] MEDS: Sodium Chloride 0.9% 1,000 ML IV SCH (07:37)
[2018-02-07 07:53] LABS: BASO # 0.1 K/uL (0.0-0.2); BASO % 0.4 % (0.0-2.0); EOS % 0.3 % (0.0-4.0); HEMOGLOBIN 9.2 g/dL (12.0-18.0); LYMPH # 1.1 K/uL (1.0-4.3); MEAN CELL VOLUME 85.9 fL (80.0-94.0); MEAN CORPUSCULAR HEMOGLOBIN 28.3 pg (27.0-31.0); MEAN CORPUSCULAR HGB CONC 32.9 g/dL (33.0-37.0); MEAN PLATELET VOLUME 7.1 fL (7.2-11.7); MONO # 2.1 K/uL (0.0-0.8); MONO % 13.9 % (0.0-10.0); NEUT # 11.8 K/uL (1.8-7.0); NEUT % 78.4 % (50.0-75.0); PLATELET COUNT 524 K/uL (130-400); RBC 3.24 Mil/uL (4.40-5.90); RED CELL DISTRIBUTION WIDTH 16.6 % (11.5-14.5); WHITE BLOOD COUNT 15.1 K/uL (4.8-10.8)
[2018-02-07 08:16] LABS: ALB/GLOB RATIO 0.5 (1.0-2.1); ALBUMIN 2.7 g/dL (3.5-5.0); ALT/SGPT 12 U/L (21-72); AST/SGOT 29 U/L (17-59); BLOOD UREA NITROGEN 9 mg/dL (9-20); GFR AFRICAN-AMERICAN > 60; GFR NON-AFRICAN AMERICAN > 60
[2018-02-07 09:00] LABS: BANDS 2 % (0-2); EOSINOPHIL 1 % (0-4); HYPOCHROMIC SLIGHT; LYMPHOCYTE 6 % (20-40); MONOCYTE 11 % (0-10); NEUTROPHIL 80 % (50-75); PLATELET ESTIMATE INCREASED (NORMAL); POLYCHROMIC SLIGHT; TOTAL CELLS COUNTED 100
[2018-02-07 09:01] LABS: ANISOCYTOSIS MODERATE; TARGET CELLS SLIGHT; TOXIC GRANULATION PRESENT
[2018-02-07 09:02] LABS: LARGE PLATELETS PRESENT
[2018-02-07] MEDS: Enoxaparin 40 mg Syringe SC SCH (09:54)
[2018-02-07] MEDS: Multiple Vitamins Tab PO SCH (09:55)
--- NOTE | 2018-02-07 11:36 | CP.PCM.PN ---
Subjective - Date & Time of Evaluation Date of Evaluation: 02/07/18 Time of Evaluation: 10:45 - Subjective Subjective: Appears comfortable Objective - Vital Signs/Intake and Output Vital Signs (last 24 hours): Temp Pulse Resp BP Pulse Ox 97.7 F 87 20 123/65 98 02/07/18 07:10 02/07/18 07:10 02/07/18 07:10 02/07/18 07:10 02/07/18 07:10 Intake and Output: 02/07/18 02/07/18 06:59 18:59 Intake Total 1565 Output Total 800 Balance 765 - Medications Medications: Current Medications Docusate Sodium (Colace) 100 mg PO TID [facility] Last Admin: 02/07/18 09:55 Dose: Not Given Enoxaparin Sodium (Lovenox) 40 mg SC DAILY [facility] Last Admin: 02/07/18 09:54 Dose: 40 mg Home Med (Bicalutamide [Casodex]) 50 mg PO DAILY [facility] Home Med (Lubiprostone [Amitiza]) 16 mcg PO DAILY [facility] Meropenem 500 mg/ Sodium (Chloride) 100 mls @ 100 mls/hr IVPB Q8 [facility] PRN Reason: Protocol Last Admin: 02/07/18 06:17 Dose: 100 mls/hr Sodium Chloride (Sodium Chloride 0.9%) 1,000 mls @ 75 mls/hr IV .[id number] [facility] Last Admin: 02/07/18 07:37 Dose: Not Given Metronidazole (Flagyl) 500 mg in 100 mls @ 100 mls/hr IVPB Q8 [facility] PRN Reason: Protocol Gentamicin Sulfate 80 mg/ (Sodium Chloride) 102 mls @ 100 mls/hr IVPB Q24H [facility] PRN Reason: Protocol Lactulose (Enulose) 10 gm PO Q6 [facility] Last Admin: 02/07/18 06:17 Dose: 10 gm Memantine (Namenda) 10 mg PO DAILY [facility] Last Admin: 02/07/18 09:55 Dose: Not Given Multivitamins (Hexavitamin) 1 tab PO DAILY [facility] Last Admin: 02/07/18 09:55 Dose: Not Given Pantoprazole Sodium (Protonix Inj) 40 mg IVP DAILY [facility] Last Admin: 02/07/18 09:54 Dose: 40 mg Sennosides (Senokot Tab) 8.6 mg PO QPM [facility] Last Admin: 02/06/18 17:51 Dose: 8.6 mg - Labs Labs: 02/07/18 07:46 02/07/18 07:46 PT 16.2 SECONDS (9.7-12.2) H 01/29/18 17:03 INR 1.4 01/29/18 17:03 APTT 30 SECONDS (21-34) 01/29/18 17:03 - Head Exam Head Exam: ATRAUMATIC - Eye Exam Eye Exam: Normal appearance - ENT Exam ENT Exam: Mucous Membranes Dry - Respiratory Exam Respiratory Exam: NORMAL BREATHING PATTERN - Cardiovascular Exam Cardiovascular Exam: +S1, +S2 - GI/Abdominal Exam GI & Abdominal Exam: Normal Bowel Sounds Assessment and Plan (1) Bone lesion Assessment & Plan: lytic lesions noted by skeletal survey monoclonal protein w/u negative appearance not typical of prostate cancer mets despite elevated PSA Status: Acute (2) Lymphadenopathy Assessment & Plan: ? malignancy related Status: Acute (3) Anemia Assessment & Plan: chronic disease Status: Acute
[2018-02-07] MEDS ORDERED: metroNIDAZOLE IV 500 mg/100 ml 500 MG/100 ML BAG IVPB SCH (14:00)
[2018-02-07 14:46] LABS: SQUAMOUS EPITHIAL 2 /hpf (0-5); URINE BILIRUBIN NEGATIVE (NEGATIVE); URINE BLOOD NEGATIVE (NEGATIVE); URINE CLARITY Hazy (Clear); URINE COLOR Yellow (YELLOW); URINE GLUCOSE (UA) NORMAL (Normal); URINE LEUKOCYTE ESTERASE NEG Leu/uL (Negative); URINE PROTEIN NEGATIVE (NEGATIVE)
[2018-02-07 16:19] VITALS: BP 130/75; PULSE 99; TEMP 98.7; O2SAT 99
--- NOTE | 2018-02-07 17:36 | CP.PCM.PN ---
Subjective - Date & Time of Evaluation Date of Evaluation: 02/07/18 Time of Evaluation: 11:40 - Subjective Subjective: Pateitn seen today, awake, alert, oriented to person, confused Objective - Vital Signs/Intake and Output Vital Signs (last 24 hours): Temp Pulse Resp BP Pulse Ox 98.7 F 99 H 20 130/75 99 02/07/18 15:17 02/07/18 15:17 02/07/18 15:17 02/07/18 15:17 02/07/18 15:17 Intake and Output: 02/07/18 02/07/18 06:59 18:59 Intake Total 1565 Output Total 800 450 Balance 765 -450 - Medications Medications: Current Medications Docusate Sodium (Colace) 100 mg PO TID [facility] Last Admin: 02/07/18 14:18 Dose: Not Given Enoxaparin Sodium (Lovenox) 40 mg SC DAILY [facility] Last Admin: 02/07/18 09:54 Dose: 40 mg Home Med (Bicalutamide [Casodex]) 50 mg PO DAILY [facility] Home Med (Lubiprostone [Amitiza]) 16 mcg PO DAILY [facility] Meropenem 500 mg/ Sodium (Chloride) 100 mls @ 100 mls/hr IVPB Q8 [facility] PRN Reason: Protocol Last Admin: 02/07/18 14:33 Dose: 100 mls/hr Sodium Chloride (Sodium Chloride 0.9%) 1,000 mls @ 75 mls/hr IV .[id number] [facility] Last Admin: 02/07/18 07:37 Dose: Not Given Metronidazole (Flagyl) 500 mg in 100 mls @ 100 mls/hr IVPB Q8 [facility] PRN Reason: Protocol Last Admin: 02/07/18 14:34 Dose: 100 mls/hr Gentamicin Sulfate 80 mg/ (Sodium Chloride) 102 mls @ 100 mls/hr IVPB Q24H [facility] PRN Reason: Protocol Lactulose (Enulose) 10 gm PO Q6 [facility] Last Admin: 02/07/18 11:40 Dose: Not Given Memantine (Namenda) 10 mg PO DAILY [facility] Last Admin: 02/07/18 09:55 Dose: Not Given Multivitamins (Hexavitamin) 1 tab PO DAILY [facility] Last Admin: 02/07/18 09:55 Dose: Not Given Pantoprazole Sodium (Protonix Inj) 40 mg IVP DAILY [facility] Last Admin: 02/07/18 09:54 Dose: 40 mg Sennosides (Senokot Tab) 8.6 mg PO QPM [facility] Last Admin: 02/06/18 17:51 Dose: 8.6 mg - Labs Labs: 02/07/18 07:46 02/07/18 07:46 PT 16.2 SECONDS (9.7-12.2) H 01/29/18 17:03 INR 1.4 01/29/18 17:03 APTT 30 SECONDS (21-34) 01/29/18 17:03 Assessment and Plan - Assessment and Plan (Free Text) Assessment: A/P urine cilture- = posotive for E coli an dsensitive to merum d/w Dr. Haile pt can be discharged back to [facility] and cat williamson total of 10 days and continue flagyl x 10 day s
--- NOTE | 2018-02-07 17:46 | CP.PCM.PN ---
Subjective - Date & Time of Evaluation Date of Evaluation: 02/07/18 Time of Evaluation: 10:40 - Subjective Subjective: clinically same Objective - Vital Signs/Intake and Output Vital Signs (last 24 hours): Temp Pulse Resp BP Pulse Ox 98.7 F 99 H 20 130/75 99 02/07/18 15:17 02/07/18 15:17 02/07/18 15:17 02/07/18 15:17 02/07/18 15:17 Intake and Output: 02/07/18 02/07/18 06:59 18:59 Intake Total 1565 Output Total 800 450 Balance 765 -450 - Medications Medications: Current Medications Docusate Sodium (Colace) 100 mg PO TID [facility] Last Admin: 02/07/18 14:18 Dose: Not Given Enoxaparin Sodium (Lovenox) 40 mg SC DAILY [facility] Last Admin: 02/07/18 09:54 Dose: 40 mg Home Med (Bicalutamide [Casodex]) 50 mg PO DAILY [facility] Home Med (Lubiprostone [Amitiza]) 16 mcg PO DAILY [facility] Meropenem 500 mg/ Sodium (Chloride) 100 mls @ 100 mls/hr IVPB Q8 [facility] PRN Reason: Protocol Last Admin: 02/07/18 14:33 Dose: 100 mls/hr Sodium Chloride (Sodium Chloride 0.9%) 1,000 mls @ 75 mls/hr IV .[id number] [facility] Last Admin: 02/07/18 07:37 Dose: Not Given Metronidazole (Flagyl) 500 mg in 100 mls @ 100 mls/hr IVPB Q8 [facility] PRN Reason: Protocol Last Admin: 02/07/18 14:34 Dose: 100 mls/hr Gentamicin Sulfate 80 mg/ (Sodium Chloride) 102 mls @ 100 mls/hr IVPB Q24H [facility] PRN Reason: Protocol Lactulose (Enulose) 10 gm PO Q6 [facility] Last Admin: 02/07/18 11:40 Dose: Not Given Memantine (Namenda) 10 mg PO DAILY [facility] Last Admin: 02/07/18 09:55 Dose: Not Given Multivitamins (Hexavitamin) 1 tab PO DAILY [facility] Last Admin: 02/07/18 09:55 Dose: Not Given Pantoprazole Sodium (Protonix Inj) 40 mg IVP DAILY [facility] Last Admin: 02/07/18 09:54 Dose: 40 mg Sennosides (Senokot Tab) 8.6 mg PO QPM [facility] Last Admin: 02/06/18 17:51 Dose: 8.6 mg - Labs Labs: 02/07/18 07:46 02/07/18 07:46 PT 16.2 SECONDS (9.7-12.2) H 01/29/18 17:03 INR 1.4 01/29/18 17:03 APTT 30 SECONDS (21-34) 01/29/18 17:03 - Constitutional Appears: Well - Head Exam Head Exam: ATRAUMATIC, NORMAL INSPECTION, NORMOCEPHALIC - Eye Exam Eye Exam: EOMI, Normal appearance, PERRL Pupil Exam: NORMAL ACCOMODATION, PERRL - ENT Exam ENT Exam: Mucous Membranes Moist, Normal Exam - Neck Exam Neck Exam: Full ROM, Normal Inspection. absent: Lymphadenopathy - Respiratory Exam Respiratory Exam: Decreased Breath Sounds - Cardiovascular Exam Cardiovascular Exam: REGULAR RHYTHM, +S1, +S2 - GI/Abdominal Exam GI & Abdominal Exam: Soft, Diminished Bowel Sounds - Rectal Exam Rectal Exam: Deferred Assessment and Plan (1) Anemia Status: Acute (2) Bone lesion Status: Acute (3) Leukocytosis Status: Acute (4) Lymphadenopathy Status: Acute (5) Constipation Status: Acute (6) Obstipation Status: Acute
--- NOTE | 2018-02-07 18:02 | CP.PCM.PN ---
Subjective - Date & Time of Evaluation Date of Evaluation: 02/07/18 Time of Evaluation: 18:02 - Subjective Subjective: CHIEF COMPLAINTS TODAY : afebrile, eating better comfortable NON VERBAL ROS. HEENT : N. Resp : No SOB wheezing, cough Cardio : No CP, PND orthopnea GI : No abd. 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 Musculoskel : N Ext. : Pedal pulses intact, no edema or calf pain Derm : N Psych : N. PE. Pt. is awake in no distress. V.S As noted in the chart Head ,ear nose,throat and eyes : Normal. Neck : Supple with normal carotids. Lungs: Clear air entry. Heart : S1 & S2 normal . . No murmur. S4 + Abd : Soft non tender with normal bowel sounds. Neuro : Moves all ext. with no localized deficit. Ext : No edema with intact pulses. Neg. calf tenderness Derm : No rashes or decubitus ulcer. Radiology/Labs reviewed URINE CULTURE -PROTEUS MIRABLIS S -MEROPENEM. GENTA Objective - Vital Signs/Intake and Output Vital Signs (last 24 hours): Temp Pulse Resp BP Pulse Ox 98.7 F 99 H 20 130/75 99 02/07/18 15:17 02/07/18 15:17 02/07/18 15:17 02/07/18 15:17 02/07/18 15:17 Intake and Output: 02/07/18 02/07/18 06:59 18:59 Intake Total 1565 Output Total 800 450 Balance 765 -450 - Medications Medications: Current Medications Docusate Sodium (Colace) 100 mg PO TID [facility] Last Admin: 02/07/18 14:18 Dose: Not Given Enoxaparin Sodium (Lovenox) 40 mg SC DAILY [facility] Last Admin: 02/07/18 09:54 Dose: 40 mg Home Med (Bicalutamide [Casodex]) 50 mg PO DAILY [facility] Home Med (Lubiprostone [Amitiza]) 16 mcg PO DAILY [facility] Meropenem 500 mg/ Sodium (Chloride) 100 mls @ 100 mls/hr IVPB Q8 [facility] PRN Reason: Protocol Last Admin: 02/07/18 14:33 Dose: 100 mls/hr Sodium Chloride (Sodium Chloride 0.9%) 1,000 mls @ 75 mls/hr IV .[id number] [facility] Last Admin: 02/07/18 07:37 Dose: Not Given Metronidazole (Flagyl) 500 mg in 100 mls @ 100 mls/hr IVPB Q8 [facility] PRN Reason: Protocol Last Admin: 02/07/18 14:34 Dose: 100 mls/hr Gentamicin Sulfate 80 mg/ (Sodium Chloride) 102 mls @ 100 mls/hr IVPB Q24H [facility] PRN Reason: Protocol Lactulose (Enulose) 10 gm PO Q6 [facility] Last Admin: 02/07/18 11:40 Dose: Not Given Memantine (Namenda) 10 mg PO DAILY [facility] Last Admin: 02/07/18 09:55 Dose: Not Given Multivitamins (Hexavitamin) 1 tab PO DAILY [facility] Last Admin: 02/07/18 09:55 Dose: Not Given Pantoprazole Sodium (Protonix Inj) 40 mg IVP DAILY [facility] Last Admin: 02/07/18 09:54 Dose: 40 mg Sennosides (Senokot Tab) 8.6 mg PO QPM [facility] Last Admin: 02/06/18 17:51 Dose: 8.6 mg - Labs Labs: 02/07/18 07:46 02/07/18 07:46 PT 16.2 SECONDS (9.7-12.2) H 01/29/18 17:03 INR 1.4 01/29/18 17:03 APTT 30 SECONDS (21-34) 01/29/18 17:03 Assessment and Plan (1) UTI (urinary tract infection) Status: Acute (2) Leukocytosis Status: Acute (3) Proctitis Status: Acute (4) Lymphadenopathy Status: Acute (5) Constipation Status: Acute (6) Syncope Status: Acute (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 ( 02/04/18 ) last dose today ( completed ) CONTINUE IV FLAGYL 500MG IVPB Q 8HRLY.02/03/18. x 10days more PER CONSULTANTS. HEM/ONCOLOGY ON BOARD. 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 PT FOR MORRSI.
== END 2018-02-07 19:42 | DRG 312 ==
LOC: C.ER 15:15 → C.9E 18:08 → C.6T 18:46
PROVIDERS: ADMIT Internal Medicine Nephrology; ATTEND Internal Medicine Nephrology
DX: R55 Syncope and collapse (principal); N39.0 Urinary tract infection, site not specified; C79.51 Secondary malignant neoplasm of bone; R64 Cachexia; K63.3 Ulcer of intestine; K62.89 Other specified diseases of anus and rectum; R59.0 Localized enlarged lymph nodes; K56.41 Fecal impaction; C61 Malignant neoplasm of prostate; R62.7 Adult failure to thrive; F02.80 Dementia in other diseases classified elsewhere, unspecified severity, without behavioral disturbance, psychotic disturbance, mood disturbance, and anxiety; G30.9 Alzheimer's disease, unspecified; E78.00 Pure hypercholesterolemia, unspecified; Z85.46 Personal history of malignant neoplasm of prostate; D64.9 Anemia, unspecified; M19.90 Unspecified osteoarthritis, unspecified site; J43.2 Centrilobular emphysema; B96.4 Proteus (mirabilis) (morganii) as the cause of diseases classified elsewhere; B96.20 Unspecified Escherichia coli [E. coli] as the cause of diseases classified elsewhere